=== PATIENT | male | born 1940 | race Caucasian/White ===

== ENCOUNTER 2016-07-02 17:53 | Inpatient (IN) | payer MEDICARE, BC ==
[2016-07-02] MEDS ORDERED: Famotidine 20 MG/2 ML SDV IVPUSH ONE (18:05)
[2016-07-02] MEDS: Sodium Chloride 0.9% 10 ML Syringe FLUSH PRN (18:15)
--- NOTE | 2016-07-02 18:30 | EDM.PDOC ---
ED HPI GENERAL MEDICAL PROBLEM - General Chief Complaint: Respiratory Problem Stated Complaint: Shortness of Breath Time Seen by Provider: 07/02/16 18:00 Source of Information: Reports: Patient, Family (), Old Records ([facility] chart/EMR) History Limitations: Reports: No Limitations - History of Present Illness INITIAL COMMENTS - FREE TEXT/NARRATIVE: The patient was brought to the emergency room via private automobile by his for evaluation of progressive dyspnea and mild diaphoresis with symptoms starting at about 14:00 hours this afternoon. Patient has had some significant decreased exercise tolerance, dyspnea, and intermittent diaphoresis during the last 12 months with completion of oral prednisone and Levaquin therapy about 2 weeks ago. He has been compliant with his O2 therapy, although he has had to increase this on 1 L per minute by nasal cannula to 2 L per minute by nasal cannula over the last couple of weeks. He has also been compliant with his CPAP with occasional greenish productive cough, including earlier today. No recent history of fever or known exposure to infection. The patient denies any chest pain/pressure, heart flutter, dizziness, orthostasis, orthopnea, diaphoresis, paresthesias, or any other anginal-type symptoms. No recent history of abdominal pain, heartburn, nausea, diarrhea, melena, gross hematochezia, or any food intolerance, including fatty foods, etc. with normal bowel movement earlier today, although some increased flatulence during the last couple of weeks. Onset: Gradual Onset Date: 07/02/16 Onset Time: 14:00 Duration: Getting Worse Location: Reports: Other (No pain) Quality: Reports: Same as Previous Episode Severity: Severe Improves with: Reports: Rest Worsens with: Reports: Movement Context: Reports: Other (As above) Associated Symptoms: Reports: Cough, cough w sputum, Diaphoresis, Shortness of Breath. Denies: Confusion, Chest Pain, Fever/Chills, Headaches, Nausea/Vomiting , Seizure, Syncope, Weakness Treatments HOSPITAL PHARMACY TECHNICIAN: Reports: Other (see below) (None) - Related Data Allergies Allergy/AdvReac Type Severity Reaction Status Date / Time levonorgestrel Allergy Cannot Verified 03/28/15 08:02 Remember mold Allergy Shortness Uncoded 07/22/15 17:23 of Breath pollen Allergy Cannot Uncoded 03/28/15 08:02 Remember Home Meds: Home Meds Albuterol/Ipratropium [DuoNeb 3.0-0.5 MG/3 ML] 1 ampule INH QID 03/20/14 [ History] Aspirin 325 mg PO QAM 03/20/14 [History] Atenolol [Tenormin] 50 mg PO BID 03/20/14 [History] Fluticasone Propionate [Flonase] 1 spray NASBOTH QAM PRN 03/20/14 [History] Loratadine/Pseudoephedrine [Sm Loratadine D 12 Hour Tablet] 1 tab PO QAM [History] Multivitamin [Tab A Henry] 1 tab PO DAILY@1200 03/20/14 [History] guaiFENesin/Pseudoephedrine [Mucinex D ER 600-60 MG] 1 tab PO Q12HR 03/20/14 [ History] Ibuprofen [Advil] 400 mg PO ASDIRECTED PRN 10/16/14 [History] Docusate Sodium [Colace] 100 mg PO ASDIRECTED PRN 03/27/15 [History] Albuterol [IJD: Ventolin HFA] 2 puff INH QID PRN 07/02/16 [History] Budesonide [Pulmicort] 0.5 mg NEB BIDRT 07/02/16 [History] Non-Formulary Medication [NF Drug] 2 tab PO DAILY 07/02/16 [History] Past Medical History HEENT History: Reports: Allergic Rhinitis, Cataract, Hard of Hearing, Impaired Vision, Sinusitis, Other (See Below). Denies: Glaucoma, Macular Degeneration, Retinal Detachment Other HEENT History: wears glasses allergic rhinitis with chronic sinusitis, presbycusis bilaterally with no current hearing aid therapy, nasal septum deviation, intermittent tinnitus Cardiovascular History: Reports: Hypertension, Pulmonary Hypertension, SOB on Exertion, Other (See Below). Denies: Aneurysm, Arrhythmia, Blood Clots/VTE/DVT , CAD, Heart Failure, Heart Murmur, High Cholesterol, OR, PVD, Syncope Other Cardiovascular History: Dyspnea secondary to COPD Respiratory History: Reports: Bronchitis, Recurrent, COPD, Intubation, Previous , Pulmonary Fibrosis, Sleep Apnea, Other (See Below). 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 Denies: Celiac Disease, Gastritis, GI Bleed, Hepatitis, Inflammatory Bowel Disease, Irritable Bowel Syndrome, Jaundice, Pancreatitis, PUD Other Gastrointestinal History: Small bowel obstruction on 09/16/12 after colonoscopy, small bowel ileus after appendicitis as below, tubular adenoma of the transverse colon on 09/15/12, Gilbert's syndrome, mild dysphagia Genitourinary History: Reports: BPH, Other (See Below). Denies: Acute Renal Failure, Chronic Renal Insuffiency, Renal Calculus, Retention, Urinary, Urinary Incontinence, UTI, Recurrent Other Genitourinary History: BPH with history of PSA elevation with subsequent normalization, erectile dysfunction Musculoskeletal History: Reports: Arthritis, Back Pain, Chronic, Fracture, Neck Pain, Chronic, Osteoarthritis, Osteoporosis, Other (See Below). Denies: Amputation, Gout, RA, SLE Other Musculoskeletal History: Fracture of the left clavicle in 1997, previous vertebral body compression fractures, right Colles' wrist fracture on 03/20/14 Neurological History: Reports: None. Denies: Cerebral Aneurysms, Concussion, CVA, Headaches, Chronic, Head Trauma, Migraines, MS, Parkinson's, Seizure, TIA Psychiatric History: Reports: Anxiety, Depression. Denies: Abuse, Victim of, ADD, ADHD, Addiction, Psych Hospitalization(s), PTSD, Suicide Attempt, Suicidal Ideation Endocrine/Metabolic History: Reports: Osteoporosis, Other (See Below). Denies: Diabetes, Type II, Hypothyroidism, IDDM Other Endocrine/Metabolic History: Hyponatremia Hematologic History: Reports: None. Denies: Anemia, B12 Deficiency, Blood Transfusion(s), Iron Deficiency Immunologic History: Reports: None. Denies: AIDS, HIV, SLE Oncologic (Cancer) History: Reports: None. Denies: Basal Cell Carcinoma, Colon , Hodgkin's Lymphoma, Leukemia, Lymphoma, Malignant Melanoma, Metastatic, Non- Hodgkin's Lymphoma, Prostate, Squamous Cell Carcinoma Dermatologic History: Reports: None. Denies: Eczema, Psoriasis - Infectious Disease History Infectious Disease History: Reports: Chicken Pox, Measles, Mumps, Scarlet Fever. Denies: C-Difficile, Meningitis, Mononucleosis, MRSA, Pertussis ( Whooping Cough), Rheumatic Fever, Rubella, TB, VRE - Past Surgical History Head Surgeries/Procedures: Reports: None HEENT Surgical History: Reports: Adenoidectomy, Cataract Surgery, Oral Surgery, Tonsillectomy, Other (See Below). Denies: Eye Surgery, Laser Surgery, LASIK, Myringotomy w Tube(s), Naso-Sinus Surgery Other HEENT Surgeries/Procedures: Bilateral cataract surgery initially on the left side in about 1997 and on the right side in 2004, complete upper teeth extraction with multiple lower teeth extractions, tonsillectomy and adenoidectomy at age 3 Cardiovascular Surgical History: Reports: None. Denies: Varicose, Vascular Surgery Respiratory Surgical History: Reports: None. Denies: Lung Biopsies, Thoracentesis GI Surgical History: Reports: Appendectomy, Cholecystectomy, Colonoscopy, Hernia , Inguinal, Polypectomy, Other (See Below). Denies: EGD Other GI Surgeries/Procedures: Laparoscopic cholecystectomy in about 1995, last colonoscopy on 09/15/12, appendectomy on 10/13/14, left inguinal hernia repair with mesh placement on 03/28/15 Male Surgical History: Reports: None. Denies: Circumcision, Prostate Biopsy , Suprapubic Catheter Placement, TURP-Transurethral Resection of Prostate Endocrine Surgical History: Denies: Thyroid Biopsy Neurological Surgical History: Reports: C-Spine, Laminectomy, Other (See Below) Other Neurological Surgeries/Procedures: Laminectomy of C6 in about 1994 Musculoskeletal Surgical History: Reports: Arthroscopic Procedure, Shoulder Surgery, Other (See Below). Denies: Carpal Tunnel, Ganglion Cyst, Joint Replacement, ORIF Other Musculoskeletal Surgeries/Procedures:: Bilateral arthroscopic shoulder repair with right-sided surgery 1996 and left-sided surgery in 1997, left clavicular repair in 1997 Oncologic Surgical History: Reports: None Dermatological Surgical History: Reports: None - Past Imaging History Past Imaging History: Reports: Carotid US (Left carotid artery Doppler studies on 04/26/11), CAT Scan (CT of the chest on 08/06/15, Last CT of the abdomen and pelvis with contrast on 10/26/14 with previous evaluation on 09/16/12, CT of the sinuses on 06/12/08), Sleep Study (07/08/08), Stress Testing (Persantine Cardiolite stress test on 6/20/07 with ejection fraction of 60%), Swallow Study (11/21/15) Social & Family History - Family History HEENT: Reports: None. Denies: Glaucoma, Macular Degeneration, Retinal Detachment Cardiac: Reports: Arrhythmia, CAD, Heart Failure, High Cholesterol, Hypertension , OR, Other (See Below). Denies: Afib, Aneurysm, Blood Clots/VTE/DVT, Heart Murmur, Pacemaker, PVD/COD, Syncope Other Cardiac Family History: Father with history of bradycardia and fatal OR at age 82, maternal uncles x3 with fatal MIs in their 60s, maternal aunt with history of CABG and OR. hypertension and hyperlipidemia in father Respiratory: Reports: None. Denies: Asthma, COPD, PE, Pneumothorax GI: Reports: Cholelithiasis, GI bleed, Other (See Below). Denies: Celiac Disease, Colon Polyps, GERD, Inflammatory Bowel Disease, Irritable Bowel Syndrome, PUD Other GI Family History: Mother with cholelithiasis, mother with lower GI bleed at 103 as below : Reports: None. Denies: Dialysis, Renal Calculus, Renal Disease/ Insufficiency OBGYN: Reports: Dysfunctional uterine bleeding, Fibroids, Recurrent Spontaneous . Denies: Endometriosis Other OBGYN Family History: Mother with recurrent SABs, daughter with history of uterine fibroids with subsequent breast cancer Musculoskeletal: Reports: None. Denies: Gout, RA, SLE Neurological: Reports: Alzheimers Disease, CVA, Dementia, Other (See Below). Denies: Cerebral Aneurysms, Migraines, MS, Parkinson's, Seizure, TIA Other Neurological Family History: Father with CVA at age 59, mother with fatal CVA at age 105 with history of Alzheimer's disease Psychiatric: Reports: None. Denies: Abuse, Victim of, ADD, ADHD, Anxiety, Depression, Psych Hospitalization(s), PTSD, Suicide Attempt Endocrine/Metabolic: Reports: Hypothyroidism, Other (See Below). Denies: Diabetes, Type I, Diabetes, type II Other Endocrine/Metabolic Family History: mother with hypothyroidism Hematologic: Reports: Anemia, Other (See Below). Denies: SLE Other Hematologic Family History: Lower GI bleed with anemia and required blood transfusion in mother at 103 with no workup Immunologic: Reports: None. Denies: AIDS, Immunosuppression Dermatologic: Reports: None. Denies: Eczema, Psoriasis Oncologic: Reports: Breast, Other (See Below) Other Oncologic Family History: Daughter with fatal breast cancer at age 37, paternal grandmother with fatal breast cancer at age 67 but she also suffered from cervical cancer, daughter with breast cancer at age 41, brother with fatal unknown type of metastatic cancer at age 57 - Tobacco Use Smoking Status *Q: Former Smoker Years of Tobacco use: 40 Packs/Tins Daily: 2.5 (Maximum use of 3 packs per day, additional pipe and cigar use) Used Tobacco, but Quit: Yes Month Tobacco Last Used: 10/09/1994 Second Hand Smoke Exposure: No Second Hand Smoke Education Provided: No - Caffeine Use Caffeine Use: Reports: Coffee (1.5 cups per day), Tea (One glass per week). 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 Denies: Fever, Chills, Malaise, Weakness, Night Sweats, Decreased Appetite, Weight Loss, Weight Gain HEENT: Reports: Glasses, Hearing Loss (Chronic). Denies: Contact Lenses, Dental Pain, Ear Pain, Eye Pain, Rhinitis, Sinus Problem, Throat Pain, Throat Swelling, Vertigo, Vision Change Respiratory: Reports: Shortness of Breath, Wheezing, Cough, Sputum. Denies: Pleuritic Chest Pain, Hemoptysis Cardiovascular: Reports: Dyspnea on Exertion. Denies: Chest Pain, Blood Pressure Problem, Claudication, Edema, Lightheadedness, Orthopnea, Palpitations , PND, Syncope Endocrine: Reports: Fatigue GI/Abdominal: Reports: Flatus. Denies: Abdominal Pain, Anorexia, Black Stool, Bloody Stool, Constipation, Diarrhea, Decreased Appetite, Difficulty Swallowing , Distension, Hematemesis, Hematochezia, Melena, Nausea, Stool Incontinence, Vomiting : Reports: No Symptoms. Denies: Discharge, Dysuria, Flank Pain, Frequency, Hematuria, Incontinence, Pain, Urgency, Urinary Retention Musculoskeletal: Reports: No Symptoms. Denies: Neck Pain, Shoulder Pain, Arm Pain, Back Pain, Leg Pain Skin: Denies: Diaphoresis, Bruising, Wound Neurological: Reports: No Symptoms. Denies: Confusion, Dizziness, Headache, Numbness, Paresthesia, Syncope, Tingling, Difficulty Walking, Weakness, Change in Speech Psychiatric: Reports: Anxiety, Depression, Other (Worsening anxiety and depression during the last couple months secondary to worsening of his baseline COPD). Denies: Agitation, Confusion, Hallucinations, Homicidal Ideation, Mood Lability Hematologic/Lymphatic: Reports: No Symptoms Immunologic: Reports: No Symptoms ED EXAM, GENERAL - Physical Exam Exam: See Below Exam Limited By: No Limitations General Appearance: Alert, WD/WN, No Apparent Distress, Anxious (Mild) Eye Exam: Bilateral Eye: EOMI, Normal Inspection (No nystagmus), PERRL Ears: Normal External Exam, Normal Canal, Normal TMs, Hearing Loss (Bilateral presbycusis-mild) Nose: Normal Inspection, Normal Mucosa, No Blood Throat/Mouth: Normal Inspection, Normal Lips, Normal Gums, Normal Oropharynx, Normal Voice, No Airway Compromise. No: Normal Teeth (Complete upper dentures and partial lowers), Dysphagia, Perioral Cyanosis Head: Atraumatic, Normocephalic. No: Facial Swelling, Facial Tenderness, Sinus Tenderness Neck: Supple, Non-Tender, Full Range of Motion, Carotid Bruit (Bilateral carotid bruits-mild). No: Lymphadenopathy (L), Lymphadenopathy (R), Thyromegaly Respiratory/Chest: No Respiratory Distress, No Accessory Muscle Use, Chest Non- Tender, Rales (Mild bilateral mostly basilar rales), Rhonchi (Occasional), Wheezing (Occasional). No: Retractions Cardiovascular: Normal Peripheral Pulses, Regular Rate, Rhythm, No Edema, No Gallop, No JVD, No Murmur, No Rub. No: Gallop/S3, Gallop/S4, Friction Rub Peripheral Pulses: 2+: Radial (L), Radial (R), Dorsalis Pedis (L), Dorsalis Pedis (R) GI/Abdominal: Normal Bowel Sounds, Soft, Non-Tender, No Organomegaly, No Distention, No Abnormal Bruit, No Mass, Pelvis Stable. No: Guarding (Male) Exam: Deferred Rectal (Males) Exam: Deferred Back Exam: Normal Inspection, Full Range of Motion. No: CVA Tenderness (L), CVA Tenderness (R), Muscle Spasm Extremities: Normal Inspection, Normal Range of Motion, Non-Tender, No Pedal Edema, Normal Capillary Refill. No: Kal's Sign Neurological: Alert, Oriented, CN II-XII Intact, Normal Cognition, Normal Gait, Normal Reflexes (Negative Babinski's), No Motor/Sensory Deficits Psychiatric: Anxious (Mild), Depressed Mood (Mild with adequate eye contact) Skin Exam: Warm, Dry, Intact, Normal Color, No Rash. No: Diaphoretic, Wound/ Incision Lymphatic: No Adenopathy EKG INTERPRETATION EKG Date: 07/02/16 Time: 18:12 Rhythm: NSR Rate (beats/min): 89 [place]: LAD-left axis deviation (Extended left cardiac axis) P-wave: enlarged (Moderate Diffuse biphasic P waves with poor R-wave progression in the anterior leads) QRS: normal (Coarse interval 0.09 seconds representing repolarization changes with T-wave inversion in lead V1) ST-T: normal QT: normal RI/PQ Interval: 0.20 seconds representing a borderline first degree AV block Comparison: change from previous EKG (Changed from previous neutral cardiac axis on 06/15/08) EKG Interpretation Comments: 1. No acute ischemic changes 2. Probable left atrial enlargement 3. Borderline First degree AV block Course - Vital Signs Last Recorded V/S: Last Vital Signs Temp 36.6 C 07/02/16 19:30 Pulse 86 07/02/16 19:50 Resp 15 07/02/16 19:50 BP 157/96 H 07/02/16 19:50 Pulse Ox 98 07/02/16 19:50 Vital Signs - 24 hr 07/02/16 07/02/16 07/02/16 17:55 18:15 18:20 Temperature [ 36.6 C Oral] Pulse, 92 88 Peripheral [ Pulse Oximetry] Respiratory 20 20 16 Rate Blood Pressure 162/82 H 164/84 H 161/90 H [Right Upper Arm] O2 Sat by Pulse 95 99 99 Oximetry 05/07/02/16 07/02/16 18:35 18:50 19:30 Temperature [ 36.6 C Oral] Pulse, 88 87 Peripheral [ Pulse Oximetry] Respiratory 18 20 18 Rate Blood Pressure 159/94 H 147/86 H 168/90 H [Right Upper Arm] O2 Sat by Pulse 99 99 100 Oximetry 07/02/16 19:50 Temperature [ Oral] Pulse, 86 Peripheral [ Pulse Oximetry] Respiratory 15 Rate Blood Pressure 157/96 H [Right Upper Arm] O2 Sat by Pulse 98 Oximetry - Orders/Labs/Meds Orders: Active Orders 24 hr Category Date Time Status Cardiac Monitoring [RC] . DIRECTED Care 07/02/16 18:05 Active EKG Documentation Completion [RC] ASDIRECTED Care 07/02/16 18:05 Active Oxygen Therapy, ED [RC] CONTINUOUS Care 07/02/16 18:05 Active Peripheral IV Care [RC] . DIRECTED Care 07/02/16 18:05 Active Pulse Oximetry [RC] CONTINUOUS Care 07/02/16 18:05 Active Up With Assistance [RC] PFP Care 07/02/16 18:05 Active Vital Signs [RC] PFP Care 07/02/16 18:05 Active Nothing per Oral Now Diet [DIET] Diet 07/02/16 Breakfast Active Chest 1V Frontal [CR] Stat Exams 07/02/16 18:05 Taken Chest PE [Ang Chest] [CT] Stat Exams 07/02/16 18:48 Taken CULTURE BLOOD [BC] Stat Lab 07/02/16 18:00 Received CULTURE BLOOD [BC] Stat Lab 07/02/16 18:00 Received Sodium Chloride 0.9% [Saline Flush] Med 07/02/16 18:05 Active 10 ml FLUSH ASDIRECTED PRN Blood Culture x2 Reflex Set [OM.PC] Urgent Oth 07/02/16 18:07 Ordered Obtain Past Medical Record [OM.PC] Urgent Oth 07/02/16 18:05 Active Peripheral IV Insertion Adult [OM.PC] Stat Oth 07/02/16 18:05 Ordered Resuscitation Status Stat Resus Stat 07/02/16 18:05 Ordered Medication Orders Sodium Chloride (Saline Flush) 10 ml FLUSH ASDIRECTED PRN PRN Reason: Keep Vein Open Last Admin: 07/02/16 18:15 Dose: 10 ml Labs: Laboratory Tests 05/07/02/16 07/02/16 Range/Units 18:00 18:00 18:00 WBC 6.7 (4.0-10.2) K/uL RBC 4.88 (4.33-5.41) M/uL Hgb 14.8 D (13.1-16.8) g/dL Hct 42.6 (39.0-49.0) % MCV 87.3 (84.0-98.0) fL MCH 30.3 (28.2-33.3) pg MCHC 34.7 (31.7-36.0) g/dL RDW 12.8 (11.2-14.1) % Plt Count 223 (150-350) K/uL Neut % (Auto) 77.4 (45.0-80.0) % Lymph % (Auto) 10.8 (10.0-50.0) % Norman % (Auto) 9.1 (2.0-14.0) % Eos % (Auto) 2.4 (0.0-5.0) % Baso % (Auto) 0.3 (0.0-2.0) % Neut # (Auto) 5.22 (1.40-7.00) K/uL Lymph # (Auto) 0.73 (0.50-3.50) K/uL Norman # (Auto) 0.61 (0.00-1.00) K/uL Eos # (Auto) 0.16 (0.00-0.50) K/uL Baso # (Auto) 0.02 (0.00-0.20) K/uL PT 10.5 (9.8-11.7) SEC INR 1.0 APTT 26.5 (23.5-30.0) SEC D-Dimer, Quantitative < 100 (0-400) ng/mL Sodium (136-145) mmol/L Potassium (3.5-5.1) mmol/L Chloride (98-107) mmol/L Carbon Dioxide (21.0-32.0) mmol/L BUN (7-18) mg/dL Creatinine (0.51-1.17) mg/dL Est Cr Clr Drug Dosing Estimated GFR (MDRD) mL/min Glucose (74-106) mg/dL Lactic Acid (0.4-2.0) mmol/L Uric Acid (2.6-7.2) mg/dL Calcium (8.5-10.1) mg/dL Magnesium (1.8-2.4) mg/dL Total Bilirubin (0.2-1.0) mg/dL AST (15-37) U/L ALT (12-78) U/L Alkaline Phosphatase (46-116) IU/L Creatine Kinase (26-308) U/L Creatine Kinase Index (0.0-2.5) % CK-MB (CK-2) (0.00-3.60) ng/mL Troponin I (0.000-0.056) ng/mL Mvy-D-Goofhnfkrje Pept (0-125) pg/mL Total Protein (6.4-8.2) g/dL Albumin (3.4-5.0) g/dL TSH, Ultra Sensitive (0.358-3.740) mIU/mL 07/02/16 07/02/16 Range/Units 18:00 18:00 WBC (4.0-10.2) K/uL RBC (4.33-5.41) M/uL Hgb (13.1-16.8) g/dL Hct (39.0-49.0) % MCV (84.0-98.0) fL MCH (28.2-33.3) pg MCHC (31.7-36.0) g/dL RDW (11.2-14.1) % Plt Count (150-350) K/uL Neut % (Auto) (45.0-80.0) % Lymph % (Auto) (10.0-50.0) % Norman % (Auto) (2.0-14.0) % Eos % (Auto) (0.0-5.0) % Baso % (Auto) (0.0-2.0) % Neut # (Auto) (1.40-7.00) K/uL Lymph # (Auto) (0.50-3.50) K/uL Norman # (Auto) (0.00-1.00) K/uL Eos # (Auto) (0.00-0.50) K/uL Baso # (Auto) (0.00-0.20) K/uL PT (9.8-11.7) SEC INR APTT (23.5-30.0) SEC D-Dimer, Quantitative (0-400) ng/mL Sodium 130 L (136-145) mmol/L Potassium 4.3 (3.5-5.1) mmol/L Chloride 95 L (98-107) mmol/L Carbon Dioxide 27.5 (21.0-32.0) mmol/L BUN 11 (7-18) mg/dL Creatinine 0.88 (0.51-1.17) mg/dL Est Cr Clr Drug Dosing TNP Estimated GFR (MDRD) > 60 mL/min Glucose 115 H (74-106) mg/dL Lactic Acid 0.8 (0.4-2.0) mmol/L Uric Acid 4.2 (2.6-7.2) mg/dL Calcium 8.4 L (8.5-10.1) mg/dL Magnesium 1.8 (1.8-2.4) mg/dL Total Bilirubin 1.0 (0.2-1.0) mg/dL AST 21 (15-37) U/L ALT 29 (12-78) U/L Alkaline Phosphatase 85 (46-116) IU/L Creatine Kinase 101 (26-308) U/L Creatine Kinase Index 3.6 H (0.0-2.5) % CK-MB (CK-2) 3.60 (0.00-3.60) ng/mL Troponin I 0.005 (0.000-0.056) ng/mL Mus-F-Ecnizgijlbu Pept 203 H (0-125) pg/mL Total Protein 6.9 (6.4-8.2) g/dL Albumin 3.8 (3.4-5.0) g/dL TSH, Ultra Sensitive 3.101 (0.358-3.740) mIU/mL Meds: Medications Generic Name Dose Route Start Last Admin Trade Name Freq PRN Reason Stop Dose Admin Sodium Chloride 10 ml 07/02/16 18:07/02/16 18:15 Saline Flush FLUSH 10 ml ASDIRECTED PRN Administration Keep Vein Open Discontinued Medications Generic Name Dose Route Start Last Admin Trade Name Freq PRN Reason Stop Dose Admin Famotidine 40 mg 07/02/16 18:05 07/02/16 18:13 Pepcid IVPUSH 07/02/16 18:06 40 mg ONETIME ONE Administration Iopamidol 100 ml 07/02/16 18:53 07/02/16 20:11 Isovue-370 (76%) IVPUSH 07/02/16 18:54 100 ml ONETIME ONE Administration Iopamidol Confirm 07/02/16 18:54 Isovue-370 (76%) Administered 07/02/16 18:55 Dose 100 ml .ROUTE .WorldRemit ONE - Radiology Interpretation Free Text/Narrative:: esl tutor shows normal sinus rhythm with no evidence of cardiac arrhythmia with average heart rate in the 80s to 90s Chest x-ray, portable, shows evidence of severe COPD and pulmonary fibrotic changes with somewhat prominent aortic arch and evidence of mild centralized CHF and pulmonary hypertension. Mild Left lower pleural effusion versus atelectasis versus previous pulmonary nodule. No pneumothorax noted Telephone consultation with the radiology department at [facility] at 20:28 hours with verbal report of CTA of the chest with PE protocol. No evidence of PE with stable bilateral pulmonary nodules and mediastinal lymphadenopathy CT Results Date: 07/02/16 CT Results Time: 20:28 Departure - Departure Time of Disposition: 20:40 Disposition: Admitted As Inpatient 65 Condition: fair Clinical Impression: COPD, Severe chronic obstructive pulmonary disease, HTN, Benign hypertension, Osteoarthritis, Peptic reflux disease, First degree AV block, Mixed anxiety depressive disorder, Pulmonary nodule, Hyponatremia Dyspnea Qualifiers: Dyspnea type: dyspnea on exertion Qualified Code(s): R06.09 - Other forms of dyspnea CHF (congestive heart failure) Qualifiers: Congestive heart failure type: unspecified congestive heart failure type Congestive heart failure chronicity: acute Qualified Code(s): I50.9 - Heart failure, unspecified - Discharge Information - Problem List & Annotations (1) Dyspnea SNOMED Code(s): 095607067 Code(s): R06.00 - DYSPNEA, UNSPECIFIED Status: Acute Priority: High Current Visit: Yes Onset Date: 07/02/16 Annotation/Comment:: Significant progressive dyspnea since earlier today with probable concomitant pulmonary and cardiac components. Only mild CHF by blood work and chest x-ray, however note significant decreased exercise tolerance during the last couple of months. Chest pain protocol was not initiated in the emergency room secondary to absence of anginal-type symptoms. Initiate standard rule out OR orders. Cardiology consultation when necessary. Mckenzie carey physician assumes care in the a.m.. Consider echocardiogram on an outpatient basis at discharge with additional consideration of dobutamine Cardiolite stress test in this facility with me next week, if hospital transfer is not required. Note history of pulmonary hypertension Qualifiers: Dyspnea type: dyspnea on exertion Qualified Code(s): R06.09 - Other forms of dyspnea (2) CHF (congestive heart failure) SNOMED Code(s): 47906128 Code(s): I50.9 - HEART FAILURE, UNSPECIFIED Status: Acute Priority: High Current Visit: Yes Onset Date: ~07/02/16 Annotation/Comment:: Mild CHF as above. Initiate IV Lasix on admission. Note likely secondary to hyponatremia Qualifiers: Congestive heart failure type: unspecified congestive heart failure type Congestive heart failure chronicity: acute Qualified Code(s): I50.9 - Heart failure, unspecified (3) COPD, Severe chronic obstructive pulmonary disease SNOMED Code(s): 504470409 Code(s): J44.9 - CHRONIC OBSTRUCTIVE PULMONARY DISEASE, UNSPECIFIED Status : Acute Priority: Medium Current Visit: Yes Annotation/Comment:: Severe disease requiring chronic oxygen and steroid inhaler supplementation with secondary limited exercise tolerance, history of pulmonary hypertension, etc. and recent progressive dyspnea as above. No current significant bronchitic-type symptoms, fever, or known exposure to infection. Continue aggressive nebulizer therapy. Pulmonary consultation depending on his clinical course (4) First degree AV block SNOMED Code(s): 354790115 Code(s): I44.0 - ATRIOVENTRICULAR BLOCK, FIRST DEGREE Status: Acute Priority: Medium Current Visit: Yes Onset Date: ~07/02/16 Annotation/ Comment:: Newly diagnosed borderline first degree AV block with cardiac workup as above (5) HTN, Benign hypertension SNOMED Code(s): 88607061 Code(s): I10 - ESSENTIAL (PRIMARY) HYPERTENSION Status: Acute Priority: Medium Current Visit: Yes Annotation/Comment:: Recently under good control by patient history, although somewhat elevated on arrival. Blood pressures improved at admission (6) Mixed anxiety depressive disorder SNOMED Code(s): 769471076 Code(s): F41.8 - OTHER SPECIFIED ANXIETY DISORDERS Status: Chronic Priority: Medium Current Visit: Yes Annotation/Comment:: Somewhat progressive during the last couple of months secondary to his chronic illnesses as above. Continue close followup by his regular provider (7) Osteoarthritis SNOMED Code(s): 476254804 Code(s): M19.90 - UNSPECIFIED OSTEOARTHRITIS, UNSPECIFIED SITE Status: Chronic Priority: Medium Current Visit: Yes Annotation/Comment:: Currently under good control with low-dose ibuprofen (8) Peptic reflux disease SNOMED Code(s): 28151920 Code(s): K21.9 - GASTRO-ESOPHAGEAL REFLUX DISEASE WITHOUT ESOPHAGITIS Status: Chronic Priority: Medium Current Visit: Yes Annotation/Comment:: Stable by patient history with IV Pepcid given on arrival (9) Pulmonary nodule SNOMED Code(s): 436619521 Code(s): R91.1 - SOLITARY PULMONARY NODULE Status: Chronic Priority: Medium Current Visit: Yes Annotation/Comment:: CTA of the chest conducted today with results as above. Note previously diagnosed bilateral pulmonary nodules with mediastinal adenopathy on 08/06/15. Lung biopsies, oncology consultation, etc. depending on his clinical course, however not warranted at this time. (10) Hyponatremia SNOMED Code(s): 25706781 Code(s): E87.1 - HYPO-OSMOLALITY AND HYPONATREMIA Status: Chronic Priority: Medium Current Visit: Yes Annotation/Comment:: As above - Problem List Review Problem List Initiated/Reviewed/Updated: Yes - My Orders Last 24 Hours: My Active Orders 07/02/16 18:00 CULTURE BLOOD [BC] Stat CULTURE BLOOD [BC] Stat 07/02/16 18:05 Cardiac Monitoring [RC] . DIRECTED EKG Documentation Completion [RC] ASDIRECTED Oxygen Therapy, ED [RC] CONTINUOUS Peripheral IV Care [RC] . DIRECTED Pulse Oximetry [RC] CONTINUOUS Up With Assistance [RC] PFP Vital Signs [RC] PFP Chest 1V Frontal [CR] Stat Sodium Chloride 0.9% [Saline Flush] 10 ml FLUSH ASDIRECTED PRN Obtain Past Medical Record [OM.PC] Urgent Peripheral IV Insertion Adult [OM.PC] Stat Resuscitation Status Stat 07/02/16 18:07 Blood Culture x2 Reflex Set [OM.PC] Urgent 07/02/16 18:48 Chest PE [Ang Chest] [CT] Stat 07/02/16 Breakfast Nothing per Oral Now Diet [DIET] - Assessment/Plan Admission H&P: Please use this note as an admission H&P Last 24 Hours: My Active Orders 07/02/16 18:00 CULTURE BLOOD [BC] Stat CULTURE BLOOD [BC] Stat 07/02/16 18:05 Cardiac Monitoring [RC] . DIRECTED EKG Documentation Completion [RC] ASDIRECTED Oxygen Therapy, ED [RC] CONTINUOUS Peripheral IV Care [RC] . DIRECTED Pulse Oximetry [RC] CONTINUOUS Up With Assistance [RC] PFP Vital Signs [RC] PFP Chest 1V Frontal [CR] Stat Sodium Chloride 0.9% [Saline Flush] 10 ml FLUSH ASDIRECTED PRN Obtain Past Medical Record [OM.PC] Urgent Peripheral IV Insertion Adult [OM.PC] Stat Resuscitation Status Stat 07/02/16 18:07 Blood Culture x2 Reflex Set [OM.PC] Urgent 07/02/16 18:48 Chest PE [Ang Chest] [CT] Stat 07/02/16 Breakfast Nothing per Oral Now Diet [DIET] Assessment:: As above Plan: As above. Extensive precautions were given to the patient and his , who are in agreement with the treatment plan. The patient will require about 3-4 days of inpatient/acute care secondary to multiple health problems as above.
[2016-07-02 18:37] LABS: CHLORIDE,CL 95 mmol/L (98-107); SODIUM,NA 130 mmol/L (136-145)
[2016-07-02] MEDS ORDERED: Iopamidol 755 Mg/ML 100 ML Bottle IVPUSH ONE (18:53)
[2016-07-02] MEDS ORDERED: Iopamidol 755 Mg/ML 100 ML Bottle ONE (18:54)
[2016-07-02] MEDS ORDERED: Docusate Sodium 100 MG Cap PO PRN ×2 (20:49→22:27)
[2016-07-02] MEDS ORDERED: Sodium Chloride 0.9% 10 ML Syringe FLUSH PRN (20:51)
[2016-07-02] MEDS ORDERED: Temazepam 15 MG Cap PO PRN (20:51)
[2016-07-02] MEDS ORDERED: Albuterol 0.083% 2.5 MG/3 ML Neb Soln INH PRN (20:57)
[2016-07-02] MEDS ORDERED: Albuterol/Ipratropium 3.0-0.5 MG/3 ML Neb Soln NEB PRN (20:57)
[2016-07-02] MEDS: Albuterol/Ipratropium 3.0-0.5 MG/3 ML Neb Soln NEB SCH (21:28)
[2016-07-02] MEDS: Budesonide 0.5 MG/2 ML Neb Susp NEB SCH (21:28)
[2016-07-02] MEDS: Furosemide 40 MG/4 ML VIAL IVPUSH SCH (21:28)
[2016-07-03] MEDS: Albuterol/Ipratropium 3.0-0.5 MG/3 ML Neb Soln NEB SCH ×4 (02:57→19:52)
[2016-07-03] MEDS ORDERED: Menthol/Methyl Salicylate 85 GM Tube TOP PRN ×2 (03:02→05:51)
[2016-07-03] MEDS: Acetaminophen 325 MG Tab PO PRN ×3 (03:07→23:15)
[2016-07-03] MEDS: Lisinopril 10 MG Tab PO SCH (07:17)
[2016-07-03] MEDS: Dextromethorphan/guaiFENesin 600-30 MG Tab.ER PO SCH ×2 (07:18→17:30)
[2016-07-03] MEDS: Aspirin 325 MG Tab PO SCH (07:18)
[2016-07-03] MEDS: Budesonide 0.5 MG/2 ML Neb Susp NEB SCH ×2 (07:19→19:52)
[2016-07-03] MEDS: Atenolol 50 MG Tab PO SCH ×2 (07:19→17:29)
[2016-07-03] MEDS: Potassium Chloride 20 MEQ Tab.ER PO SCH ×2 (07:19→17:30)
[2016-07-03] MEDS: Furosemide 40 MG/4 ML VIAL IVPUSH SCH ×2 (07:20→17:30)
[2016-07-03 07:44] LABS: CHLORIDE,CL 97 mmol/L (98-107); SODIUM,NA 134 mmol/L (136-145)
[2016-07-03] MEDS ORDERED: LORATADINE PO SCH (08:00)
[2016-07-03] MEDS ORDERED: PSEUDOEPHEDRINE PO SCH (08:00)
--- NOTE | 2016-07-03 09:04 | PCM.PN ---
- General Info Date of Service: 07/03/16 Admission Dx/Problem (Free Text): Short of breath danette with exertion - Patient Data Vitals - most recent: Last Vital Signs Temp 36.8 C 07/03/16 08:00 Pulse 81 07/03/16 08:00 Resp 20 07/03/16 08:00 BP 127/83 07/03/16 08:00 Pulse Ox 97 07/03/16 08:00 Weight - most recent: 146 kg I&O - last 24 hours: Intake & Output 07/02/16 07/03/16 07/03/16 18:59 02:59 10:59 Intake Total 120 Output Total 450 Balance -330 Lab Results last 24 hrs: Laboratory Results - last 24 hr 07/03/16 07/03/16 07/03/16 Range/Units 07:00 07:00 07:00 WBC 6.6 (4.0-10.2) K/uL RBC 5.00 (4.33-5.41) M/uL Hgb 15.2 (13.1-16.8) g/dL Hct 43.6 (39.0-49.0) % MCV 87.2 (84.0-98.0) fL MCH 30.4 (28.2-33.3) pg MCHC 34.9 (31.7-36.0) g/dL RDW 13.0 (11.2-14.1) % Plt Count 232 (150-350) K/uL Neut % (Auto) 68.2 (45.0-80.0) % Lymph % (Auto) 15.3 (10.0-50.0) % [place] % (Auto) 12.7 (2.0-14.0) % Eos % (Auto) 3.5 (0.0-5.0) % Baso % (Auto) 0.3 (0.0-2.0) % Neut # (Auto) 4.50 (1.40-7.00) K/uL Lymph # (Auto) 1.01 (0.50-3.50) K/uL [place] # (Auto) 0.84 (0.00-1.00) K/uL Eos # (Auto) 0.23 (0.00-0.50) K/uL Baso # (Auto) 0.02 (0.00-0.20) K/uL Sodium 134 L (136-145) mmol/L Potassium 3.6 (3.5-5.1) mmol/L Chloride 97 L (98-107) mmol/L Carbon Dioxide 29.2 (21.0-32.0) mmol/L BUN 11 (7-18) mg/dL Creatinine 1.01 (0.51-1.17) mg/dL Est Cr Clr Drug Dosing 60.56 mL/min Estimated GFR (MDRD) > 60 mL/min Glucose 102 (74-106) mg/dL Hemoglobin A1c 5.5 (4.3-5.7) % Calcium 8.9 (8.5-10.1) mg/dL Total Bilirubin 1.2 H (0.2-1.0) mg/dL AST 21 (15-37) U/L ALT 29 (12-78) U/L Alkaline Phosphatase 77 (46-116) IU/L Creatine Kinase 95 (26-308) U/L Creatine Kinase Index 3.6 H (0.0-2.5) % CK-MB (CK-2) 3.40 (0.00-3.60) ng/mL Troponin I 0.011 (0.000-0.056) ng/mL [id number]-[id number] Pept 307 H (0-125) pg/mL Total Protein 6.9 (6.4-8.2) g/dL Albumin 3.8 (3.4-5.0) g/dL Triglycerides 112 (30-150) mg/dL Cholesterol 129 (100-200) mg/dL LDL Cholesterol, Calc 46 (0-100) mg/dL HDL Cholesterol 61 H (40-60) mg/dL Med Orders - Current: Current Medications Acetaminophen (Tylenol) 650 mg PO Q4H PRN PRN Reason: Fever Last Admin: 07/03/16 03:07 Dose: 650 mg Albuterol (Proventil Neb Soln) 2.5 mg INH Q2H PRN PRN Reason: SHORTNESS OF BREATH Albuterol/Ipratropium (Duoneb 3.0-0.5 Mg/3 Ml) 3 ml NEB Q4HRRT PRN PRN Reason: Dyspnea Albuterol/Ipratropium (Duoneb 3.0-0.5 Mg/3 Ml) 3 ml NEB Q6HRRT [facility] Last Admin: 07/03/16 07:19 Dose: 3 ml Aspirin (Aspirin) 325 mg PO QAM [facility] Last Admin: 07/03/16 07:18 Dose: 325 mg Atenolol (Tenormin) 50 mg PO BID [facility] Last Admin: 07/03/16 07:19 Dose: 50 mg Budesonide (Pulmicort) 0.5 mg NEB BIDRT [facility] Last Admin: 07/03/16 07:19 Dose: 0.5 mg Docusate Sodium (Colace) 100 mg PO DAILY PRN PRN Reason: Constipation Furosemide (Lasix) 40 mg IVPUSH BID [facility] Last Admin: 07/03/16 07:20 Dose: 40 mg Guaifenesin/Dextromethorphan (Mucinex Dm Er 600-30 Mg) 1 tab PO BID [facility] Last Admin: 07/03/16 07:18 Dose: 1 tab Lisinopril (Prinivil) 10 mg PO DAILY [facility] Last Admin: 07/03/16 07:17 Dose: 10 mg Methyl Salicylate (Icy Hot Cream) 0 gm TOP BID PRN PRN Reason: Pain Non-Formulary Medication ([facility]oratadine/[facility]hed[facility]) [facility] Potassium Chloride (Klor-Con M20) 20 meq PO BID [facility] Last Admin: 07/03/16 07:19 Dose: 20 meq Sodium Chloride (Saline Flush) 10 ml FLUSH ASDIRECTED PRN PRN Reason: Keep Vein Open Last Admin: 07/02/16 18:15 Dose: 10 ml Sodium Chloride (Saline Flush) 10 ml FLUSH Q12HR PRN PRN Reason: Keep Vein Open Temazepam (Restoril) 15 mg PO BEDTIME PRN PRN Reason: Insomnia Discontinued Medications Docusate Sodium (Colace) 100 mg PO ASDIRECTED PRN PRN Reason: Constipation Famotidine (Pepcid) 40 mg IVPUSH ONETIME ONE Stop: 07/02/16 18:06 Last Admin: 07/02/16 18:13 Dose: 40 mg Iopamidol (Isovue-370 (76%)) 100 ml IVPUSH ONETIME ONE Stop: 07/02/16 18:54 Last Admin: 07/02/16 20:11 Dose: 100 ml Iopamidol (Isovue-370 (76%)) Confirm Administered Dose 100 ml .ROUTE .STK-MED ONE Stop: 07/02/16 18:55 Last Admin: 07/03/16 07:31 Dose: Not Given Methyl Salicylate (Icy Hot Cream) 1 gm TOP ASDIRECTED PRN PRN Reason: Pain
--- NOTE | 2016-07-03 09:09 | PCM.PN ---
- General Info Date of Service: 07/03/16 Admission Dx/Problem (Free Text): Short of breath danette with exertion Subjective Update: Feels better but still SOB with exertion Functional Status: Reports: ambulating - Review of Systems General: Reports: Fatigue HEENT: Reports: no symptoms Pulmonary: Reports: shortness of breath, cough Cardiovascular: Reports: No Symptoms Gastrointestinal: Reports: No symptoms Genitourinary: Reports: no symptoms Musculoskeletal: Reports: no symptoms - Patient Data Vitals - most recent: Last Vital Signs Temp 36.8 C 07/03/16 08:00 Pulse 81 07/03/16 08:00 Resp 20 07/03/16 08:00 BP 127/83 07/03/16 08:00 Pulse Ox 97 07/03/16 08:00 Weight - most recent: 146 kg I&O - last 24 hours: Intake & Output 07/02/16 07/03/16 07/03/16 18:59 02:59 10:59 Intake Total 120 Output Total 450 Balance -330 Lab Results last 24 hrs: Laboratory Results - last 24 hr 07/03/16 07/03/16 07/03/16 Range/Units 07:00 07:00 07:00 WBC 6.6 (4.0-10.2) K/uL RBC 5.00 (4.33-5.41) M/uL Hgb 15.2 (13.1-16.8) g/dL Hct 43.6 (39.0-49.0) % MCV 87.2 (84.0-98.0) fL MCH 30.4 (28.2-33.3) pg MCHC 34.9 (31.7-36.0) g/dL RDW 13.0 (11.2-14.1) % Plt Count 232 (150-350) K/uL Neut % (Auto) 68.2 (45.0-80.0) % Lymph % (Auto) 15.3 (10.0-50.0) % [place] % (Auto) 12.7 (2.0-14.0) % Eos % (Auto) 3.5 (0.0-5.0) % Baso % (Auto) 0.3 (0.0-2.0) % Neut # (Auto) 4.50 (1.40-7.00) K/uL Lymph # (Auto) 1.01 (0.50-3.50) K/uL [place] # (Auto) 0.84 (0.00-1.00) K/uL Eos # (Auto) 0.23 (0.00-0.50) K/uL Baso # (Auto) 0.02 (0.00-0.20) K/uL Sodium 134 L (136-145) mmol/L Potassium 3.6 (3.5-5.1) mmol/L Chloride 97 L (98-107) mmol/L Carbon Dioxide 29.2 (21.0-32.0) mmol/L BUN 11 (7-18) mg/dL Creatinine 1.01 (0.51-1.17) mg/dL Est Cr Clr Drug Dosing 60.56 mL/min Estimated GFR (MDRD) > 60 mL/min Glucose 102 (74-106) mg/dL Hemoglobin A1c 5.5 (4.3-5.7) % Calcium 8.9 (8.5-10.1) mg/dL Total Bilirubin 1.2 H (0.2-1.0) mg/dL AST 21 (15-37) U/L ALT 29 (12-78) U/L Alkaline Phosphatase 77 (46-116) IU/L Creatine Kinase 95 (26-308) U/L Creatine Kinase Index 3.6 H (0.0-2.5) % CK-MB (CK-2) 3.40 (0.00-3.60) ng/mL Troponin I 0.011 (0.000-0.056) ng/mL Agt-K-Cjfoakmfzgl Pept 307 H (0-125) pg/mL Total Protein 6.9 (6.4-8.2) g/dL Albumin 3.8 (3.4-5.0) g/dL Triglycerides 112 (30-150) mg/dL Cholesterol 129 (100-200) mg/dL LDL Cholesterol, Calc 46 (0-100) mg/dL HDL Cholesterol 61 H (40-60) mg/dL Med Orders - Current: Current Medications Acetaminophen (Tylenol) 650 mg PO Q4H PRN PRN Reason: Fever Last Admin: 07/03/16 03:07 Dose: 650 mg Albuterol (Proventil Neb Soln) 2.5 mg INH Q2H PRN PRN Reason: SHORTNESS OF BREATH Albuterol/Ipratropium (Duoneb 3.0-0.5 Mg/3 Ml) 3 ml NEB Q4HRRT PRN PRN Reason: Dyspnea Albuterol/Ipratropium (Duoneb 3.0-0.5 Mg/3 Ml) 3 ml NEB Q6HRRT [facility] Last Admin: 07/03/16 07:19 Dose: 3 ml Aspirin (Aspirin) 325 mg PO QAM [facility] Last Admin: 07/03/16 07:18 Dose: 325 mg Atenolol (Tenormin) 50 mg PO BID [facility] Last Admin: 07/03/16 07:19 Dose: 50 mg Budesonide (Pulmicort) 0.5 mg NEB BIDRT [facility] Last Admin: 07/03/16 07:19 Dose: 0.5 mg Docusate Sodium (Colace) 100 mg PO DAILY PRN PRN Reason: Constipation Furosemide (Lasix) 40 mg IVPUSH BID [facility] Last Admin: 07/03/16 07:20 Dose: 40 mg Guaifenesin/Dextromethorphan (Mucinex Dm Er 600-30 Mg) 1 tab PO BID [facility] Last Admin: 07/03/16 07:18 Dose: 1 tab Lisinopril (Prinivil) 10 mg PO DAILY [facility] Last Admin: 07/03/16 07:17 Dose: 10 mg Methyl Salicylate (Icy Hot Cream) 0 gm TOP BID PRN PRN Reason: Pain Non-Formulary Medication (Loratadine/Pseudoephedrine) 1 tab PO [facility] Potassium Chloride (Klor-Con M20) 20 meq PO BID [facility] Last Admin: 07/03/16 07:19 Dose: 20 meq Sodium Chloride (Saline Flush) 10 ml FLUSH ASDIRECTED PRN PRN Reason: Keep Vein Open Last Admin: 07/02/16 18:15 Dose: 10 ml Sodium Chloride (Saline Flush) 10 ml FLUSH Q12HR PRN PRN Reason: Keep Vein Open Temazepam (Restoril) 15 mg PO BEDTIME PRN PRN Reason: Insomnia Discontinued Medications Docusate Sodium (Colace) 100 mg PO ASDIRECTED PRN PRN Reason: Constipation Famotidine (Pepcid) 40 mg IVPUSH ONETIME ONE Stop: 07/02/16 18:06 Last Admin: 07/02/16 18:13 Dose: 40 mg Iopamidol (Isovue-370 (76%)) 100 ml IVPUSH ONETIME ONE Stop: 07/02/16 18:54 Last Admin: 07/02/16 20:11 Dose: 100 ml Iopamidol (Isovue-370 (76%)) Confirm Administered Dose 100 ml .ROUTE .STK-MED ONE Stop: 07/02/16 18:55 Last Admin: 07/03/16 07:31 Dose: Not Given Methyl Salicylate (Icy Hot Cream) 1 gm TOP ASDIRECTED PRN PRN Reason: Pain - Exam Quality Assessment: supplemental oxygen General: alert, oriented Neck: supple Lungs: Decreased breath sounds Cardiovascular: Regular Rate Abdomen: soft Extremities: no tenderness/swelling - Problem List & Annotations (1) COPD, Severe chronic obstructive pulmonary disease SNOMED Code(s): 733377219 Code(s): J44.9 - CHRONIC OBSTRUCTIVE PULMONARY DISEASE, UNSPECIFIED Status : Acute Priority: Medium Current Visit: Yes Annotation/Comment:: Severe disease requiring chronic oxygen and steroid inhaler supplementation with secondary limited exercise tolerance, history of pulmonary hypertension, etc. and recent progressive dyspnea as above. No current significant bronchitic-type symptoms, fever, or known exposure to infection. Continue aggressive nebulizer therapy. Pulmonary consultation depending on his clinical course (2) Dyspnea SNOMED Code(s): 381887011 Code(s): R06.00 - DYSPNEA, UNSPECIFIED Status: Acute Priority: High Current Visit: Yes Onset Date: 07/02/16 Qualifiers: Dyspnea type: dyspnea on exertion Qualified Code(s): R06.09 - Other forms of dyspnea Annotation/Comment:: Significant progressive dyspnea since earlier today with probable concomitant pulmonary and cardiac components. Only mild CHF by blood work and chest x-ray, however note significant decreased exercise tolerance during the last couple of months. Chest pain protocol was not initiated in the emergency room secondary to absence of anginal-type symptoms. Initiate standard rule out ID orders. Cardiology consultation when necessary. Mckenzie carey physician assumes care in the a.m.. Consider echocardiogram on an outpatient basis at discharge with additional consideration of dobutamine Cardiolite stress test in this facility with me next week, if hospital transfer is not required. Note history of pulmonary hypertension - Problem List Review Problem List Initiated/Reviewed/Updated: Yes - Plan Plan:: Continue current care and supplemental oxygen
[2016-07-04] MEDS: Albuterol/Ipratropium 3.0-0.5 MG/3 ML Neb Soln NEB SCH ×4 (01:19→19:25)
[2016-07-04] MEDS: Dextromethorphan/guaiFENesin 600-30 MG Tab.ER PO SCH ×2 (07:47→17:57)
[2016-07-04] MEDS: Furosemide 40 MG/4 ML VIAL IVPUSH SCH ×2 (07:47→17:57)
[2016-07-04] MEDS: Potassium Chloride 20 MEQ Tab.ER PO SCH ×2 (07:48→17:57)
[2016-07-04] MEDS: Aspirin 325 MG Tab PO SCH (07:48)
[2016-07-04] MEDS: Lisinopril 10 MG Tab PO SCH (07:49)
[2016-07-04] MEDS: Atenolol 50 MG Tab PO SCH ×2 (07:49→17:59)
[2016-07-04] MEDS: Budesonide 0.5 MG/2 ML Neb Susp NEB SCH ×2 (07:50→19:25)
--- NOTE | 2016-07-04 10:38 | PCM.PN ---
- General Info Date of Service: 07/04/16 Admission Dx/Problem (Free Text): Short of breath danette with exertion Subjective Update: Pt states remains SOB with exertion and has had increased congestion today Functional Status: Reports: ambulating - Review of Systems General: Reports: Fatigue HEENT: Reports: sinus congestion Pulmonary: Reports: shortness of breath, cough, sputum Cardiovascular: Reports: No Symptoms Gastrointestinal: Reports: No symptoms Musculoskeletal: Reports: no symptoms - Patient Data Vitals - most recent: Last Vital Signs Temp 37.1 C 07/04/16 08:00 Pulse 83 07/04/16 08:00 Resp 20 07/04/16 08:00 BP 128/90 07/04/16 08:00 Pulse Ox 96 07/04/16 08:00 Weight - most recent: 66.451 kg I&O - last 24 hours: Intake & Output 07/03/16 07/04/16 07/04/16 18:59 02:59 10:59 Intake Total 1020 940 740 Output Total 1350 100 Balance 1020 -410 640 Dung Results last 24 hrs: Microbiology 07/04/16 06:00 Stool Occult Blood (DUNG) - Final Stool / Feces NEGATIVE OCCULT BLOOD Med Orders - Current: Current Medications Acetaminophen (Tylenol) 650 mg PO Q4H PRN PRN Reason: Fever Last Admin: 07/03/16 23:15 Dose: 650 mg Albuterol (Proventil Neb Soln) 2.5 mg INH Q2H PRN PRN Reason: SHORTNESS OF BREATH Albuterol/Ipratropium (Duoneb 3.0-0.5 Mg/3 Ml) 3 ml NEB Q4HRRT PRN PRN Reason: Dyspnea Albuterol/Ipratropium (Duoneb 3.0-0.5 Mg/3 Ml) 3 ml NEB Q6HRRT [facility] Last Admin: 07/04/16 07:50 Dose: 3 ml Aspirin (Aspirin) 325 mg PO QAM [facility] Last Admin: 07/04/16 07:48 Dose: 325 mg Atenolol (Tenormin) 50 mg PO BID [facility] Last Admin: 07/04/16 07:49 Dose: 50 mg Budesonide (Pulmicort) 0.5 mg NEB BIDRT [facility] Last Admin: 07/04/16 07:50 Dose: 0.5 mg Docusate Sodium (Colace) 100 mg PO DAILY PRN PRN Reason: Constipation Furosemide (Lasix) 40 mg IVPUSH BID [facility] Last Admin: 07/04/16 07:47 Dose: 40 mg Guaifenesin/Dextromethorphan (Mucinex Dm Er 600-30 Mg) 1 tab PO BID [facility] Last Admin: 07/04/16 07:47 Dose: 1 tab Lisinopril (Prinivil) 10 mg PO DAILY [facility] Last Admin: 07/04/16 07:49 Dose: 10 mg Methyl Salicylate (Icy Hot Cream) 0 gm TOP BID PRN PRN Reason: Pain Non-Formulary Medication (Loratadine/Pseudoephedrine) 1 tab PO QAM [facility] Potassium Chloride (Klor-Con M20) 20 meq PO BID [facility] Last Admin: 07/04/16 07:48 Dose: 20 meq Sodium Chloride (Saline Flush) 10 ml FLUSH ASDIRECTED PRN PRN Reason: Keep Vein Open Last Admin: 07/02/16 18:15 Dose: 10 ml Sodium Chloride (Saline Flush) 10 ml FLUSH Q12HR PRN PRN Reason: Keep Vein Open Temazepam (Restoril) 15 mg PO BEDTIME PRN PRN Reason: Insomnia Discontinued Medications Docusate Sodium (Colace) 100 mg PO ASDIRECTED PRN PRN Reason: Constipation Famotidine (Pepcid) 40 mg IVPUSH ONETIME ONE Stop: 07/02/16 18:06 Last Admin: 07/02/16 18:13 Dose: 40 mg Iopamidol (Isovue-370 (76%)) 100 ml IVPUSH ONETIME ONE Stop: 07/02/16 18:54 Last Admin: 07/02/16 20:11 Dose: 100 ml Iopamidol (Isovue-370 (76%)) Confirm Administered Dose 100 ml .ROUTE .STK-MED ONE Stop: 07/02/16 18:55 Last Admin: 07/03/16 07:31 Dose: Not Given Methyl Salicylate (Icy Hot Cream) 1 gm TOP ASDIRECTED PRN PRN Reason: Pain - Exam Quality Assessment: supplemental oxygen General: alert, oriented Neck: supple Lungs: Decreased breath sounds Cardiovascular: Regular Rate Abdomen: soft - Problem List & Annotations (1) COPD, Severe chronic obstructive pulmonary disease SNOMED Code(s): 995297840 Code(s): J44.9 - CHRONIC OBSTRUCTIVE PULMONARY DISEASE, UNSPECIFIED Status : Acute Priority: Medium Current Visit: Yes Annotation/Comment:: Severe disease requiring chronic oxygen and steroid inhaler supplementation with secondary limited exercise tolerance, history of pulmonary hypertension, etc. and recent progressive dyspnea as above. No current significant bronchitic-type symptoms, fever, or known exposure to infection. Continue aggressive nebulizer therapy. Pulmonary consultation depending on his clinical course (2) Dyspnea SNOMED Code(s): 601309122 Code(s): R06.00 - DYSPNEA, UNSPECIFIED Status: Acute Priority: High Current Visit: Yes Onset Date: 07/02/16 Qualifiers: Dyspnea type: dyspnea on exertion Qualified Code(s): R06.09 - Other forms of dyspnea Annotation/Comment:: Significant progressive dyspnea since earlier today with probable concomitant pulmonary and cardiac components. Only mild CHF by blood work and chest x-ray, however note significant decreased exercise tolerance during the last couple of months. Chest pain protocol was not initiated in the emergency room secondary to absence of anginal-type symptoms. Initiate standard rule out [place] orders. Cardiology consultation when necessary. clinical secretary physician assumes care in the a.m.. Consider echocardiogram on an outpatient basis at discharge with additional consideration of dobutamine Cardiolite stress test in this facility with me next week, if hospital transfer is not required. Note history of pulmonary hypertension - Problem List Review Problem List Initiated/Reviewed/Updated: Yes - My Orders Last 24 Hours: My Active Orders 07/03/16 Lunch Regular Diet [DIET] - Plan Plan:: Continue current care and supplemental oxygen Will continue to monitor. Will try to increase ambulation today as tolerated
[2016-07-04] MEDS: Acetaminophen 325 MG Tab PO PRN (23:59)
[2016-07-05] MEDS: Albuterol/Ipratropium 3.0-0.5 MG/3 ML Neb Soln NEB SCH ×3 (03:05→14:23)
[2016-07-05] MEDS: Dextromethorphan/guaiFENesin 600-30 MG Tab.ER PO SCH (08:19)
[2016-07-05] MEDS: Budesonide 0.5 MG/2 ML Neb Susp NEB SCH (08:19)
[2016-07-05] MEDS: Lisinopril 10 MG Tab PO SCH ×2 (08:20→18:56)
[2016-07-05] MEDS: Aspirin 325 MG Tab PO SCH (08:20)
[2016-07-05] MEDS: Furosemide 40 MG/4 ML VIAL IVPUSH SCH ×2 (08:21→08:44)
[2016-07-05] MEDS: Potassium Chloride 20 MEQ Tab.ER PO SCH (08:21)
[2016-07-05] MEDS: Atenolol 50 MG Tab PO SCH (08:21)
[2016-07-05] MEDS: Sodium Chloride 0.9% 10 ML Syringe FLUSH PRN (08:33)
--- NOTE | 2016-07-05 11:17 | PCM.DCSUM1 ---
Discharge Summary - Hospital Course Free Text/Narrative:: Pt admitted for dyspnea and COPD exacerbation. Has improved slowly. Pt on oxygen at home. Has ambulated in hallways today with minimal change in SOB. Has remained stable. Pt feels he has returned to baseline HPI Initial Comments: Pt admitted with increased SOB and dyspnea with exertion - Discharge Data Discharge Date: 07/05/16 Discharge Disposition: Home, Self-Care 01 Condition: Good - Discharge Diagnosis/Problem(s) (1) COPD, Severe chronic obstructive pulmonary disease SNOMED Code(s): 686169372 ICD Code: J44.9 - CHRONIC OBSTRUCTIVE PULMONARY DISEASE, UNSPECIFIED Status : Acute Priority: Medium Current Visit: Yes Problem Details: Severe disease requiring chronic oxygen and steroid inhaler supplementation with secondary limited exercise tolerance, history of pulmonary hypertension, etc. and recent progressive dyspnea as above. No current significant bronchitic-type symptoms, fever, or known exposure to infection. Continue aggressive nebulizer therapy. Pulmonary consultation depending on his clinical course (2) Dyspnea SNOMED Code(s): 387214373 ICD Code: R06.00 - DYSPNEA, UNSPECIFIED Status: Acute Priority: High Current Visit: Yes Onset Date: 07/02/16 Problem Details: Significant progressive dyspnea since earlier today with probable concomitant pulmonary and cardiac components. Only mild CHF by blood work and chest x-ray, however note significant decreased exercise tolerance during the last couple of months. Chest pain protocol was not initiated in the emergency room secondary to absence of anginal-type symptoms. Initiate standard rule out [place] orders. Cardiology consultation when necessary. [facility] physician assumes care in the a.m.. Consider echocardiogram on an outpatient basis at discharge with additional consideration of dobutamine Cardiolite stress test in this facility with me next week, if hospital transfer is not required. Note history of pulmonary hypertension Qualifiers: Dyspnea type: dyspnea on exertion Qualified Code(s): R06.09 - Other forms of dyspnea - Patient Summary/Data Hospital Course: Pt slowly improved during admission. Now able to tolerate exertion at baseline level - Patient Instructions Diet: Usual Diet as Tolerated Activity: As Tolerated Notify Provider of: Fever - Discharge Plan Home Medications: Home Meds Albuterol/Ipratropium [DuoNeb 3.0-0.5 MG/3 ML] 1 ampule INH QID 03/20/14 [ History] Aspirin 325 mg PO QAM 03/20/14 [History] Atenolol [Tenormin] 50 mg PO BID 03/20/14 [History] Fluticasone Propionate [Flonase] 1 spray NASBOTH QAM PRN 03/20/14 [History] Loratadine/Pseudoephedrine [Sm Loratadine D 12 Hour Tablet] 1 tab PO QAM [History] Multivitamin [Tab A Henry] 1 tab PO DAILY@1200 03/20/14 [History] guaiFENesin/Pseudoephedrine [Mucinex D ER 600-60 MG] 1 tab PO Q12HR 03/20/14 [ History] Ibuprofen [Advil] 400 mg PO ASDIRECTED PRN 10/16/14 [History] Docusate Sodium [Colace] 100 mg PO DAILY PRN 03/27/15 [History] Albuterol [IJD: Ventolin HFA] 2 puff INH QID PRN 07/02/16 [History] Budesonide [Pulmicort] 0.5 mg NEB BIDRT 07/02/16 [History] Non-Formulary Medication [NF Drug] 2 tab PO DAILY 07/02/16 [History] Polyethylene Glycol 3350 [MiraLAX] 17 gm PO DAILY 07/02/16 [History] Forms: ED Department Discharge Referrals: Troy Cates PA [Primary Care Provider] - - Discharge Summary/Plan Comment Discharge Summary/Plan Comment: Follow up in clinic with usual provider - Patient Data Vitals - Most Recent: Last Vital Signs Temp 36.5 C 07/05/16 07:30 Pulse 78 07/05/16 10:30 Resp 20 07/05/16 07:30 BP 114/76 07/05/16 10:30 Pulse Ox 97 07/05/16 10:30 Weight - Most Recent: 66.542 kg GOLD Results - Last 24 hrs: Microbiology 07/04/16 06:00 Stool Occult Blood (GOLD) - Final Stool / Feces NEGATIVE OCCULT BLOOD Med Orders - Current: Current Medications Acetaminophen (Tylenol) 650 mg PO Q4H PRN PRN Reason: Fever Last Admin: 07/04/16 23:59 Dose: 650 mg Albuterol (Proventil Neb Soln) 2.5 mg INH Q2H PRN PRN Reason: SHORTNESS OF BREATH Albuterol/Ipratropium (Duoneb 3.0-0.5 Mg/3 Ml) 3 ml NEB Q4HRRT PRN PRN Reason: Dyspnea Last Admin: 07/05/16 04:10 Dose: 3 ml Albuterol/Ipratropium (Duoneb 3.0-0.5 Mg/3 Ml) 3 ml NEB Q6HRRT [facility] Last Admin: 07/05/16 08:19 Dose: 3 ml Aspirin (Aspirin) 325 mg PO QAM [facility] Last Admin: 07/05/16 08:20 Dose: 325 mg Atenolol (Tenormin) 50 mg PO BID [facility] Last Admin: 07/05/16 08:21 Dose: 50 mg Budesonide (Pulmicort) 0.5 mg NEB BIDRT [facility] Last Admin: 07/05/16 08:19 Dose: 0.5 mg Docusate Sodium (Colace) 100 mg PO DAILY PRN PRN Reason: Constipation Furosemide (Lasix) 40 mg IVPUSH BID [facility] Last Admin: 07/05/16 08:44 Dose: Not Given Guaifenesin/Dextromethorphan (Mucinex Dm Er 600-30 Mg) 1 tab PO BID [facility] Last Admin: 07/05/16 08:19 Dose: 1 tab Lisinopril (Prinivil) 10 mg PO DAILY [facility] Last Admin: 07/04/16 07:49 Dose: 10 mg Methyl Salicylate (Icy Hot Cream) 0 gm TOP BID PRN PRN Reason: Pain Non-Formulary Medication (Loratadine/Pseudoephedrine) 1 tab PO [facility] Potassium Chloride (Klor-Con M20) 20 meq PO BID [facility] Last Admin: 07/05/16 08:21 Dose: 20 meq Sodium Chloride (Saline Flush) 10 ml FLUSH ASDIRECTED PRN PRN Reason: Keep Vein Open Last Admin: 07/05/16 08:33 Dose: 10 ml Sodium Chloride (Saline Flush) 10 ml FLUSH Q12HR PRN PRN Reason: Keep Vein Open Temazepam (Restoril) 15 mg PO BEDTIME PRN PRN Reason: Insomnia Discontinued Medications Docusate Sodium (Colace) 100 mg PO ASDIRECTED PRN PRN Reason: Constipation Famotidine (Pepcid) 40 mg IVPUSH ONETIME ONE Stop: 07/02/16 18:06 Last Admin: 05/25/17 18:13 Dose: 40 mg Iopamidol (Isovue-370 (76%)) 100 ml IVPUSH ONETIME ONE Stop: 07/02/16 18:54 Last Admin: 07/02/16 20:11 Dose: 100 ml Iopamidol (Isovue-370 (76%)) Confirm Administered Dose 100 ml .ROUTE .STK-MED ONE Stop: 07/02/16 18:55 Last Admin: 07/03/16 07:31 Dose: Not Given Methyl Salicylate (Icy Hot Cream) 1 gm TOP ASDIRECTED PRN PRN Reason: Pain *Q Meaningful Use (DIS) - VTE *Q VTE Criteria *Q: - Stroke *Q Stroke Criteria *Q: - AMI *Q AMI Criteria *Q:
[2016-07-05 18:56] VITALS: BP 97/62
== END 2016-07-05 15:00 | disposition home or self-care (01) | DRG 191 ==
LOC: LL.ED 17:53 → LL.MS 19:38 → UNDOADMIN 19:38 → LL.MS 20:44 → UNDODISIN 07-05 15:00
PROVIDERS: ADMIT Family Medicine; ATTEND Family Medicine
DX: J44.1 Chronic obstructive pulmonary disease with (acute) exacerbation (principal); E87.1 Hypo-osmolality and hyponatremia; I10 Essential (primary) hypertension; I50.9 Heart failure, unspecified; Z99.81 Dependence on supplemental oxygen; Z79.51 Long term (current) use of inhaled steroids; J84.10 Pulmonary fibrosis, unspecified; Z87.891 Personal history of nicotine dependence; I44.0 Atrioventricular block, first degree; I27.2 Other secondary pulmonary hypertension; F41.8 Other specified anxiety disorders; K21.9 Gastro-esophageal reflux disease without esophagitis; M19.90 Unspecified osteoarthritis, unspecified site; K59.09 Other constipation; H91.90 Unspecified hearing loss, unspecified ear; H54.7 Unspecified visual loss; Z79.82 Long term (current) use of aspirin; Z88.8 Allergy status to other drugs, medicaments and biological substances; Z91.048 Other nonmedicinal substance allergy status; R06.09 Other forms of dyspnea; R06.02 Shortness of breath; R61 Generalized hyperhidrosis
CPT/HCPCS: 36415; 71010; 71275; 80053; 82550; 82553; 83605; 83735; 83880; 84443; 84484; 84550; 85025; 85379; 85610; 85730; 87040 ×2; 93005; 96374; 99285; J7050; Q9967; 80061; 82272; 83036; 87338; 94640; 94664; A9270-GY; J1940; S0028

== ENCOUNTER 2016-07-06 02:19 | Emergency (ER) | payer MEDICARE, BC ==
[2016-07-06] MEDS ORDERED: Albuterol 0.083% 2.5 MG/3 ML Neb Soln ONE (02:24)
[2016-07-06] MEDS ORDERED: Albuterol 0.083% 2.5 MG/3 ML Neb Soln NEB ONE ×2 (02:28→03:42)
[2016-07-06] MEDS ORDERED: LORazepam 2 MG/ML MDV IVPUSH ONE ×2 (02:51→03:42)
[2016-07-06] MEDS ORDERED: methylPREDNISolone Sodium Succinate 125 MG/2 ML SDV IVPUSH ONE (02:51)
[2016-07-06 02:57] LABS: CHLORIDE,CL 94 mmol/L (98-107)
[2016-07-06] MEDS: Sodium Chloride 0.9% 10 ML Syringe FLUSH PRN ×3 (02:57→03:46)
[2016-07-06 03:01] LABS: SODIUM,NA 126 mmol/L (136-145)
[2016-07-06] MEDS ORDERED: LORazepam 2 MG/ML MDV ONE ×2 (03:42→04:16)
--- NOTE | 2016-07-06 03:50 | EDM.PDOC ---
ED HPI GENERAL MEDICAL PROBLEM - General Chief Complaint: Respiratory Problem Stated Complaint: shortness of breath Time Seen by Provider: 07/06/16 02:40 Source of Information: Reports: Patient, EMS, Family History Limitations: Reports: Respiratory Distress - History of Present Illness INITIAL COMMENTS - FREE TEXT/NARRATIVE: Pt with acute onset of SOB. Unable to breath. Had been in hospital for past two days for COPD exacerbation. Discharged today. Had been doing well until acute episode tonight Onset: Sudden Duration: Hour(s): Location: Reports: Chest Severity: Severe Improves with: Reports: Medication Worsens with: Reports: Breathing Associated Symptoms: Reports: Cough Treatments TECHNICAL ANALYST: Reports: Breathing Treatments, Oxygen - Related Data Allergies Allergy/AdvReac Type Severity Reaction Status Date / Time levonorgestrel Allergy Cannot Verified 07/06/16 02:43 Remember mold Allergy Shortness Uncoded 07/06/16 02:43 of Breath pollen Allergy Cannot Uncoded 07/06/16 02:43 Remember Home Meds: Home Meds Albuterol/Ipratropium [DuoNeb 3.0-0.5 MG/3 ML] 1 ampule INH QID 03/20/14 [ History] Aspirin 325 mg PO QAM 03/20/14 [History] Atenolol [Tenormin] 50 mg PO BID 03/20/14 [History] Fluticasone Propionate [Flonase] 1 spray NASBOTH QAM PRN 03/20/14 [History] Multivitamin [Tab A Henry] 1 tab PO DAILY@1200 03/20/14 [History] Ibuprofen [Advil] 400 mg PO ASDIRECTED PRN 10/16/14 [History] Docusate Sodium [Colace] 100 mg PO DAILY PRN 03/27/15 [History] Albuterol [IJD: Ventolin HFA] 2 puff INH QID PRN 07/02/16 [History] Budesonide [Pulmicort] 0.5 mg NEB BIDRT 07/02/16 [History] Non-Formulary Medication [NF Drug] 2 tab PO DAILY 07/02/16 [History] Polyethylene Glycol 3350 [MiraLAX] 17 gm PO DAILY 07/02/16 [History] Past Medical History HEENT History: Reports: Allergic Rhinitis, Cataract, Hard of Hearing, Impaired Vision, Sinusitis, Other (See Below) Other HEENT History: wears glasses allergic rhinitis with chronic sinusitis, presbycusis bilaterally with no current hearing aid therapy, nasal septum deviation, intermittent tinnitus Cardiovascular History: Reports: Hypertension, Pulmonary Hypertension, SOB on Exertion, Other (See Below) Other Cardiovascular History: Dyspnea secondary to COPD Respiratory History: Reports: Bronchitis, Recurrent, COPD, Intubation, Previous , Pulmonary Fibrosis, Sleep Apnea, Other (See Below) Other Respiratory History: 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 , history of unknown type of right basilar pulmonary nodule 2.[address] scan of chest on 08/06/15 with additional left lower lung lesion and some right hilar mediastinal adenopathy a similar Gastrointestinal History: Reports: Bowel Obstruction, Cholelithiasis, Chronic Constipation, Colon Polyp, GERD, Other (See Below) Other Gastrointestinal History: Small bowel obstruction on 09/16/12 after colonoscopy, small bowel ileus after appendicitis as below, tubular adenoma of the transverse colon on 09/15/12, Gilbert's syndrome, mild dysphagia Genitourinary History: Reports: BPH, Other (See Below) Other Genitourinary History: BPH with history of PSA elevation with subsequent normalization, erectile dysfunction Musculoskeletal History: Reports: Arthritis, Back Pain, Chronic, Fracture, Neck Pain, Chronic, Osteoarthritis, Osteoporosis, Other (See Below) Other Musculoskeletal History: Fracture of the left clavicle in 1997, previous vertebral body compression fractures, right Colles' wrist fracture on 03/20/14 Neurological History: Reports: None Psychiatric History: Reports: Anxiety, Depression Endocrine/Metabolic History: Reports: Osteoporosis, Other (See Below) Other Endocrine/Metabolic History: Hyponatremia Hematologic History: Reports: None Immunologic History: Reports: None Oncologic (Cancer) History: Reports: None Dermatologic History: Reports: None - Infectious Disease History Infectious Disease History: Reports: Chicken Pox, Measles, Mumps, Scarlet Fever - Past Surgical History Head Surgeries/Procedures: Reports: None HEENT Surgical History: Reports: Adenoidectomy, Cataract Surgery, Oral Surgery, Tonsillectomy, Other (See Below) Other HEENT Surgeries/Procedures: Bilateral cataract surgery initially on the left side in about 1997 and on the right side in 2004, complete upper teeth extraction with multiple lower teeth extractions, tonsillectomy and adenoidectomy at age 3 Cardiovascular Surgical History: Reports: None Respiratory Surgical History: Reports: None GI Surgical History: Reports: Appendectomy, Cholecystectomy, Colonoscopy, Hernia , Inguinal, Polypectomy, Other (See Below) Other GI Surgeries/Procedures: Laparoscopic cholecystectomy in about 1995, last colonoscopy on 09/15/12, appendectomy on 10/13/14, left inguinal hernia repair with mesh placement on 03/28/15 Male Surgical History: Reports: None Neurological Surgical History: Reports: C-Spine, Laminectomy, Other (See Below) Other Neurological Surgeries/Procedures: Laminectomy of C6 in about 1994 Musculoskeletal Surgical History: Reports: Arthroscopic Procedure, Shoulder Surgery, Other (See Below) Other Musculoskeletal Surgeries/Procedures:: Bilateral arthroscopic shoulder repair with right-sided surgery 1996 and left-sided surgery in 1997, left clavicular repair in 1997 Oncologic Surgical History: Reports: None Dermatological Surgical History: Reports: None - Past Imaging History Past Imaging History: Reports: Carotid US (Left carotid artery Doppler studies on 04/26/11), CAT Scan (CT of the chest on 08/06/15, Last CT of the abdomen and pelvis with contrast on 10/26/14 with previous evaluation on 09/16/12, CT of the sinuses on 06/12/08), Sleep Study (07/08/08), Stress Testing (Persantine Cardiolite stress test on 07/28/06 with ejection fraction of 60%), Swallow Study (11/21/15) Social & Family History - Family History HEENT: Reports: None Cardiac: Reports: Arrhythmia, CAD, Heart Failure, High Cholesterol, Hypertension , AR, Other (See Below) Other Cardiac Family History: Father with history of bradycardia and fatal AR at age 82, maternal uncles x3 with fatal MIs in their 60s, maternal aunt with history of CABG and AR. hypertension and hyperlipidemia in father Respiratory: Reports: None GI: Reports: Cholelithiasis, GI bleed, Other (See Below) Other GI Family History: Mother with cholelithiasis, mother with lower GI bleed at 103 as below : Reports: None OBGYN: Reports: Dysfunctional uterine bleeding, Fibroids, Recurrent Spontaneous Other OBGYN Family History: Mother with recurrent SABs, daughter with history of uterine fibroids with subsequent breast cancer Musculoskeletal: Reports: None Neurological: Reports: Alzheimers Disease, CVA, Dementia, Other (See Below) Other Neurological Family History: Father with CVA at age 59, mother with fatal CVA at age 105 with history of Alzheimer's disease Psychiatric: Reports: None Endocrine/Metabolic: Reports: Hypothyroidism, Other (See Below) Other Endocrine/Metabolic Family History: mother with hypothyroidism Hematologic: Reports: Anemia, Other (See Below) Other Hematologic Family History: Lower GI bleed with anemia and required blood transfusion in mother at 103 with no workup Immunologic: Reports: None Dermatologic: Reports: None Oncologic: Reports: Breast, Other (See Below) Other Oncologic Family History: Daughter with fatal breast cancer at age 37, paternal grandmother with fatal breast cancer at age 67 but she also suffered from cervical cancer, daughter with breast cancer at age 41, brother with fatal unknown type of metastatic cancer at age 57 - Tobacco Use Smoking Status *Q: Former Smoker Years of Tobacco use: 40 Packs/Tins Daily: 2.5 Used Tobacco, but Quit: Yes Month Tobacco Last Used: 10/09/1994 Second Hand Smoke Exposure: No - Caffeine Use Caffeine Use: Reports: Coffee (1.5 cups per day), Tea (One glass per week). 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) ED ROS GENERAL - Review of Systems Review Of Systems: See Below Constitutional: Reports: Weakness, Fatigue HEENT: Reports: No Symptoms Respiratory: Reports: Shortness of Breath, Wheezing Cardiovascular: Reports: No Symptoms GI/Abdominal: Reports: No Symptoms Musculoskeletal: Reports: No Symptoms ED EXAM, GENERAL - Physical Exam Exam: See Below General Appearance: Moderate Distress Throat/Mouth: Normal Oropharynx Neck: Supple Respiratory/Chest: Respiratory Distress, Wheezing, Retractions, Prolonged Expiration Cardiovascular: Regular Rate, Rhythm GI/Abdominal: Soft Extremities: Normal Range of Motion Neurological: No Motor/Sensory Deficits Course - Vital Signs Last Recorded V/S: Last Vital Signs Temp 36.6 C 07/06/16 03:07 Pulse 95 07/06/16 03:14 Resp 25 H 07/06/16 03:14 BP 126/82 07/06/16 03:14 Pulse Ox 98 07/06/16 03:14 - Orders/Labs/Meds Orders: Active Orders 24 hr Category Date Time Status RT Aerosol Therapy [RC] ASDIRECTED Care 07/06/16 02:28 Active RT Aerosol Therapy [RC] ASDIRECTED Care 07/06/16 03:42 Ordered Chest 1V Frontal [CR] Stat Exams 07/06/16 02:28 Taken Sodium Chloride 0.9% [Saline Flush] Med 07/06/16 02:29 Active 10 ml FLUSH ASDIRECTED PRN Saline Lock Insert [OM.PC] Routine Oth 07/06/16 02:29 Ordered Medication Orders Sodium Chloride (Saline Flush) 10 ml FLUSH ASDIRECTED PRN PRN Reason: Keep Vein Open Last Admin: 07/06/16 03:00 Dose: 10 ml Admin: 07/06/16 02:57 Dose: 10 ml Labs: Laboratory Tests 07/06/16 07/06/16 Range/Units 02:35 02:35 WBC 14.7 H (4.0-10.2) K/uL RBC 5.15 (4.33-5.41) M/uL Hgb 15.7 (13.1-16.8) g/dL Hct 45.0 (39.0-49.0) % MCV 87.4 (84.0-98.0) fL MCH 30.5 (28.2-33.3) pg MCHC 34.9 (31.7-36.0) g/dL RDW 12.9 (11.2-14.1) % Plt Count 279 (150-350) K/uL Neut % (Auto) 81.8 H (45.0-80.0) % Lymph % (Auto) 8.2 L (10.0-50.0) % [place] % (Auto) 7.9 (2.0-14.0) % Eos % (Auto) 1.5 (0.0-5.0) % Baso % (Auto) 0.6 (0.0-2.0) % Neut # (Auto) 12.00 H (1.40-7.00) K/uL Lymph # (Auto) 1.20 (0.50-3.50) K/uL [place] # (Auto) 1.16 H (0.00-1.00) K/uL Eos # (Auto) 0.22 (0.00-0.50) K/uL Baso # (Auto) 0.09 (0.00-0.20) K/uL Sodium 126 L (136-145) mmol/L Potassium 5.8 H* D (3.5-5.1) mmol/L Chloride 94 L (98-107) mmol/L Carbon Dioxide 27.7 (21.0-32.0) mmol/L BUN 19 H (7-18) mg/dL Creatinine 0.97 (0.51-1.17) mg/dL Est Cr Clr Drug Dosing 60.02 mL/min Estimated GFR (MDRD) > 60 mL/min Glucose 137 H (74-106) mg/dL Calcium 8.3 L (8.5-10.1) mg/dL Total Bilirubin 1.0 (0.2-1.0) mg/dL AST 40 H (15-37) U/L ALT 47 (12-78) U/L Alkaline Phosphatase 90 (46-116) IU/L Total Protein 7.2 (6.4-8.2) g/dL Albumin 3.9 (3.4-5.0) g/dL Meds: Medications Generic Name Dose Route Start Last Admin Trade Name Freq PRN Reason Stop Dose Admin Sodium Chloride 10 ml 07/06/16 02:29 07/06/16 03:00 Saline Flush FLUSH 10 ml ASDIRECTED PRN Administration Keep Vein Open Discontinued Medications Generic Name Dose Route Start Last Admin Trade Name Freq PRN Reason Stop Dose Admin Albuterol Confirm 07/06/16 02:24 07/06/16 02:57 Proventil Neb Soln Administered 07/06/16 02:25 Not Given Dose 2.5 mg .ROUTE .STK-MED ONE Albuterol 2.5 mg 07/06/16 02:28 07/06/16 02:25 Proventil Neb Soln NEB 07/06/16 02:29 2.5 mg ONETIME ONE Administration Albuterol 2.5 mg 07/06/16 03:42 Proventil Neb Soln NEB 07/06/16 03:43 ONETIME ONE Lorazepam 1 mg 07/06/16 02:51 07/06/16 02:56 Ativan IVPUSH 07/06/16 02:52 1 mg ONETIME ONE Administration Lorazepam 1 mg 07/06/16 03:42 Ativan IVPUSH 07/06/16 03:43 ONETIME ONE Lorazepam Confirm 07/06/16 03:42 Ativan Administered 07/06/16 03:43 Dose 2 mg .ROUTE .STK-MED ONE Methylprednisolone Sodium Succinate 125 mg 07/06/16 02:51 07/06/16 02:58 Solu-Medrol IVPUSH 07/06/16 02:52 125 mg ONETIME ONE Administration - Re-Assessments/Exams Free Text/Narrative Re-Assessment/Exam: 07/06/16 03:48 Pt given Albuterol X 2 as well Ativan X2 and Solu-medrol. Pt improved but remains SOB and with increased respiratory rate D/W Dr Field On-call hospitalist [facility]. Will accept in transfer 07/06/16 03:49 Departure - Departure Time of Disposition: 04:00 Disposition: DC/Tfer to [facility] 02 Clinical Impression: COPD, Severe chronic obstructive pulmonary disease - Discharge Information Forms: ED Department Discharge - My Orders Last 24 Hours: My Active Orders 07/06/16 02:28 RT Aerosol Therapy [RC] ASDIRECTED Chest 1V Frontal [CR] Stat 07/06/16 02:29 Sodium Chloride 0.9% [Saline Flush] 10 ml FLUSH ASDIRECTED PRN Saline Lock Insert [OM.PC] Routine 07/06/16 03:42 RT Aerosol Therapy [RC] ASDIRECTED - Assessment/Plan Last 24 Hours: My Active Orders 07/06/16 02:28 RT Aerosol Therapy [RC] ASDIRECTED Chest 1V Frontal [CR] Stat 07/06/16 02:29 Sodium Chloride 0.9% [Saline Flush] 10 ml FLUSH ASDIRECTED PRN Saline Lock Insert [OM.PC] Routine 07/06/16 03:42 RT Aerosol Therapy [RC] ASDIRECTED
[2016-07-06] MEDS ORDERED: Morphine 4 MG/ML Syringe IVPUSH ONE (04:24)
[2016-07-06] MEDS ORDERED: Morphine 4 MG/ML Syringe ONE (04:25)
[2016-07-06 04:57] VITALS: BP 140/85
[2016-07-06] MEDS ORDERED: Sodium Chloride 0.9% 1,000 ML IV SCH (05:15)
== END 2016-07-06 04:30 ==
LOC: LL.ED 02:19
DX: J44.9 Chronic obstructive pulmonary disease, unspecified (principal); K21.9 Gastro-esophageal reflux disease without esophagitis; I10 Essential (primary) hypertension; F41.9 Anxiety disorder, unspecified; M19.90 Unspecified osteoarthritis, unspecified site; F32.9 Major depressive disorder, single episode, unspecified; Z90.49 Acquired absence of other specified parts of digestive tract; Z88.8 Allergy status to other drugs, medicaments and biological substances; Z79.899 Other long term (current) drug therapy; Z87.891 Personal history of nicotine dependence; Z90.89 Acquired absence of other organs; Z98.41 Cataract extraction status, right eye; Z98.42 Cataract extraction status, left eye; Z98.890 Other specified postprocedural states; Z79.82 Long term (current) use of aspirin
CPT/HCPCS: 36415; 71010; 80053; 85025; 94640; 96374; 96375; 96376; 99285; J2060; J2270; J2930; J7050; J7620; 99284

== ENCOUNTER 2016-07-17 16:45 | Emergency (ER) | payer MEDICARE, BC ==
--- NOTE | 2016-07-17 17:11 | EDM.PDOC ---
ED HPI GENERAL MEDICAL PROBLEM - General Chief Complaint: Cardiovascular Problem Stated Complaint: increased heart rate Time Seen by Provider: 07/17/16 16:48 Source of Information: Reports: Patient, Family (), RN History Limitations: Reports: No Limitations - History of Present Illness INITIAL COMMENTS - FREE TEXT/NARRATIVE: '" My pulse has been racing and it should be at around 80. It's been around 120. I am more short of breath today. I was breathing good when the prednisone was at 40. I called the home health nurse and she thought I was tapering too vast. Maribell ( home health nurse ) thought it was too fast." He was hospitalized at [facility] last week and I had a heart attack. I went in Wednesday morning and got out on ." Symptoms started this morning. Onset: Gradual Severity: Severe Worsens with: Reports: Movement Context: Denies: Sick Contact Associated Symptoms: Denies: Cough, Headaches - Related Data Allergies Allergy/AdvReac Type Severity Reaction Status Date / Time levonorgestrel Allergy Cannot Verified 07/17/16 16:53 Remember mold Allergy Shortness Uncoded 07/17/16 16:53 of Breath pollen Allergy Cannot Uncoded 07/17/16 16:53 Remember Home Meds: Home Meds Albuterol/Ipratropium [DuoNeb 3.0-0.5 MG/3 ML] 1 ampule INH QID 03/20/14 [ History] Multivitamin [Tab A Henry] 1 tab PO DAILY@1200 03/20/14 [History] Docusate Sodium [Colace] 100 mg PO DAILY PRN 03/27/15 [History] Albuterol [IJD: Ventolin HFA] 2 puff INH QID PRN 07/02/16 [History] Budesonide [Pulmicort] 0.5 mg NEB BIDRT 07/02/16 [History] Aspirin [Halfprin] 81 mg PO BRK 07/17/16 [History] Carvedilol 12.5 mg PO BID 07/17/16 [History] Clopidogrel [Plavix] 75 mg PO DAILY 07/17/16 [History] LORazepam 0.5 mg PO Q8H PRN 07/17/16 [History] Loratadine 10 mg PO BEDTIME 07/17/16 [History] Nystatin 1 applic TOP ASDIRECTED 07/17/16 [History] Pantoprazole Sodium [Protonix] 40 mg PO DAILY 07/17/16 [History] Prednisone [IJD: Prednisone] 20 mg PO DAILY 07/17/16 [History] Psyllium Husk [Metamucil] 2 tsp PO DAILY 07/17/16 [History] Sodium Chloride 1 gm PO TID 07/17/16 [History] atorvaSTATin [Lipitor] 40 mg PO BEDTIME 07/17/16 [History] guaiFENesin [Mucus Relief] 600 mg PO BID 07/17/16 [History] Past Medical History HEENT History: Reports: Allergic Rhinitis, Cataract, Hard of Hearing, Impaired Vision, Sinusitis, Other (See Below) Other HEENT History: wears glasses allergic rhinitis with chronic sinusitis, presbycusis bilaterally with no current hearing aid therapy, nasal septum deviation, intermittent tinnitus Cardiovascular History: Reports: Hypertension, Pulmonary Hypertension, SOB on Exertion, Other (See Below) Other Cardiovascular History: Dyspnea secondary to COPD Respiratory History: Reports: Bronchitis, Recurrent, COPD, Intubation, Previous , Pulmonary Fibrosis, Sleep Apnea, Other (See Below) Other Respiratory History: 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 , history of unknown type of right basilar pulmonary nodule 2.[address] scan of chest on 08/06/15 with additional left lower lung lesion and some right hilar mediastinal adenopathy a similar Gastrointestinal History: Reports: Bowel Obstruction, Cholelithiasis, Chronic Constipation, Colon Polyp, GERD, Other (See Below) Other Gastrointestinal History: Small bowel obstruction on 09/16/12 after colonoscopy, small bowel ileus after appendicitis as below, tubular adenoma of the transverse colon on 09/15/12, Gilbert's syndrome, mild dysphagia Genitourinary History: Reports: BPH, Other (See Below) Other Genitourinary History: BPH with history of PSA elevation with subsequent normalization, erectile dysfunction Musculoskeletal History: Reports: Arthritis, Back Pain, Chronic, Fracture, Neck Pain, Chronic, Osteoarthritis, Osteoporosis, Other (See Below) Other Musculoskeletal History: Fracture of the left clavicle in 1997, previous vertebral body compression fractures, right Colles' wrist fracture on 03/20/14 Neurological History: Reports: None Psychiatric History: Reports: Anxiety, Depression Endocrine/Metabolic History: Reports: Osteoporosis, Other (See Below) Other Endocrine/Metabolic History: Hyponatremia Hematologic History: Reports: None Immunologic History: Reports: None Oncologic (Cancer) History: Reports: None Dermatologic History: Reports: None - Infectious Disease History Infectious Disease History: Reports: Chicken Pox, Measles, Mumps, Scarlet Fever - Past Surgical History Head Surgeries/Procedures: Reports: None HEENT Surgical History: Reports: Adenoidectomy, Cataract Surgery, Oral Surgery, Tonsillectomy, Other (See Below) Other HEENT Surgeries/Procedures: Bilateral cataract surgery initially on the left side in about 1997 and on the right side in 2004, complete upper teeth extraction with multiple lower teeth extractions, tonsillectomy and adenoidectomy at age 3 Cardiovascular Surgical History: Reports: None Respiratory Surgical History: Reports: None GI Surgical History: Reports: Appendectomy, Cholecystectomy, Colonoscopy, Hernia , Inguinal, Polypectomy, Other (See Below) Other GI Surgeries/Procedures: Laparoscopic cholecystectomy in about 1995, last colonoscopy on 09/15/12, appendectomy on 10/13/14, left inguinal hernia repair with mesh placement on 03/28/15 Male Surgical History: Reports: None Neurological Surgical History: Reports: C-Spine, Laminectomy, Other (See Below) Other Neurological Surgeries/Procedures: Laminectomy of C6 in about 1994 Musculoskeletal Surgical History: Reports: Arthroscopic Procedure, Shoulder Surgery, Other (See Below) Other Musculoskeletal Surgeries/Procedures:: Bilateral arthroscopic shoulder repair with right-sided surgery 1996 and left-sided surgery in 1997, left clavicular repair in 1997 Oncologic Surgical History: Reports: None Dermatological Surgical History: Reports: None - Past Imaging History Past Imaging History: Reports: Carotid US (Left carotid artery Doppler studies on 04/26/11), CAT Scan (CT of the chest on 08/06/15, Last CT of the abdomen and pelvis with contrast on 10/26/14 with previous evaluation on 09/16/12, CT of the sinuses on 06/12/08), Sleep Study (07/08/08), Stress Testing (Persantine Cardiolite stress test on 07/28/06 with ejection fraction of 60%), Swallow Study (11/21/15) Social & Family History - Family History HEENT: Reports: None Cardiac: Reports: Arrhythmia, CAD, Heart Failure, High Cholesterol, Hypertension , FL, Other (See Below) Other Cardiac Family History: Father with history of bradycardia and fatal FL at age 82, maternal uncles x3 with fatal MIs in their 60s, maternal aunt with history of CABG and FL. hypertension and hyperlipidemia in father Respiratory: Reports: None GI: Reports: Cholelithiasis, GI bleed, Other (See Below) Other GI Family History: Mother with cholelithiasis, mother with lower GI bleed at 103 as below : Reports: None OBGYN: Reports: Dysfunctional uterine bleeding, Fibroids, Recurrent Spontaneous Other OBGYN Family History: Mother with recurrent SABs, daughter with history of uterine fibroids with subsequent breast cancer Musculoskeletal: Reports: None Neurological: Reports: Alzheimers Disease, CVA, Dementia, Other (See Below) Other Neurological Family History: Father with CVA at age 59, mother with fatal CVA at age 105 with history of Alzheimer's disease Psychiatric: Reports: None Endocrine/Metabolic: Reports: Hypothyroidism, Other (See Below) Other Endocrine/Metabolic Family History: mother with hypothyroidism Hematologic: Reports: Anemia, Other (See Below) Other Hematologic Family History: Lower GI bleed with anemia and required blood transfusion in mother at 103 with no workup Immunologic: Reports: None Dermatologic: Reports: None Oncologic: Reports: Breast, Other (See Below) Other Oncologic Family History: Daughter with fatal breast cancer at age 37, paternal grandmother with fatal breast cancer at age 67 but she also suffered from cervical cancer, daughter with breast cancer at age 41, brother with fatal unknown type of metastatic cancer at age 57 - Tobacco Use Smoking Status *Q: Former Smoker Years of Tobacco use: 40 Packs/Tins Daily: 2.5 Used Tobacco, but Quit: Yes Month Tobacco Last Used: 10/09/1994 Second Hand Smoke Exposure: No - Caffeine Use Caffeine Use: Reports: Coffee (1.5 cups per day), Tea (One glass per week). 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) ED ROS GENERAL - Review of Systems Review Of Systems: See Below HEENT: Denies: Eye Pain, Nosebleed Respiratory: Reports: Shortness of Breath GI/Abdominal: Reports: Black Stool (black stools for 4 days according to his ) : Reports: No Symptoms, Other (Slow urnary stream at times) Skin: Reports: No Symptoms Psychiatric: Reports: No Symptoms Hematologic/Lymphatic: Reports: Easy Bruising Immunologic: Reports: No Symptoms ED EXAM, GENERAL - Physical Exam Exam: See Below Exam Limited By: No Limitations General Appearance: Alert, No Apparent Distress Eye Exam: Bilateral Eye: Normal Inspection, Nystagmus Ears: Normal External Exam Ear Exam: Bilateral Ear: Auricle Normal Nose: Normal Inspection, Normal Mucosa Throat/Mouth: Normal Lips (tongue and oral mucosa slightly dry) Head: Atraumatic Neck: Supple, Non-Tender. No: Lymphadenopathy (L) Respiratory/Chest: Lungs Clear, No Accessory Muscle Use, Chest Non-Tender, Other (decreased breath sounds) Peripheral Pulses: 2+: Carotid (L), Carotid (R), Radial (L), Radial (R), Posterior Tibial (L), Posterior Tibial (R), Dorsalis Pedis (L), Dorsalis Pedis ( R) GI/Abdominal: Normal Bowel Sounds, Soft, Non-Tender Back Exam: Normal Inspection Extremities: Normal Inspection, Non-Tender, No Pedal Edema Neurological: Alert, Oriented, CN II-XII Intact, Normal Cognition, Normal Gait Psychiatric: Normal Affect, Normal Mood Skin Exam: Warm, Dry, Intact Lymphatic: No Adenopathy Course - Vital Signs Last Recorded V/S: Last Vital Signs Temp 97.1 F 07/17/16 16:46 Pulse 118 H 07/17/16 18:00 Resp 18 07/17/16 18:00 BP 99/59 L 07/17/16 18:00 Pulse Ox 99 07/17/16 18:00 - Orders/Labs/Meds Orders: Active Orders 24 hr Category Date Time Status EKG Documentation Completion [RC] ASDIRECTED Care 07/17/16 17:20 Active Peripheral IV Care [RC] . DIRECTED Care 07/17/16 17:23 Active Chest 2V [CR] Stat Exams 07/17/16 17:27 Taken Sodium Chloride 0.9% [Normal Saline] 500 ml Med 07/17/16 17:45 Active IV ASDIRECTED Sodium Chloride 0.9% [Saline Flush] Med 07/17/16 17:22 Active 10 ml FLUSH ASDIRECTED PRN Sodium Chloride 0.9% [Saline Flush] Med 07/17/16 17:25 Active 10 ml FLUSH ASDIRECTED PRN Convert IV to Saline Lock [OM.PC] Stat Oth 07/17/16 17:25 Ordered Peripheral IV Insertion Adult [OM.PC] Routine Ot 07/17/16 17:22 Ordered Medication Orders Sodium Chloride (Normal Saline) 500 mls @ 100 mls/hr IV ASDIRECTED YANA Last Admin: 07/17/16 18:02 Dose: 100 mls/hr Sodium Chloride (Saline Flush) 10 ml FLUSH ASDIRECTED PRN PRN Reason: Keep Vein Open Last Admin: 07/17/16 18:03 Dose: 10 ml Sodium Chloride (Saline Flush) 10 ml FLUSH ASDIRECTED PRN PRN Reason: Keep Vein Open Labs: Laboratory Tests 07/17/16 07/17/16 07/17/16 Range/Units 17:30 17:30 17:30 WBC 16.8 H (4.0-10.2) K/uL RBC 3.38 L (4.33-5.41) M/uL Hgb 10.4 L D (13.1-16.8) g/dL Hct 31.0 L (39.0-49.0) % MCV 91.7 D (84.0-98.0) fL MCH 30.8 (28.2-33.3) pg MCHC 33.5 (31.7-36.0) g/dL RDW 13.5 (11.2-14.1) % Plt Count 269 (150-350) K/uL Neut % (Auto) 87.2 H (45.0-80.0) % Lymph % (Auto) 6.6 L (10.0-50.0) % [place] % (Auto) 5.9 (2.0-14.0) % Eos % (Auto) 0.1 (0.0-5.0) % Baso % (Auto) 0.2 (0.0-2.0) % Neut # (Auto) 14.66 H (1.40-7.00) K/uL Lymph # (Auto) 1.10 (0.50-3.50) K/uL [place] # (Auto) 0.99 (0.00-1.00) K/uL Eos # (Auto) 0.01 (0.00-0.50) K/uL Baso # (Auto) 0.03 (0.00-0.20) K/uL D-Dimer, Quantitative < 100 (0-400) ng/mL Sodium 138 D (136-145) mmol/L Potassium 4.3 D (3.5-5.1) mmol/L Chloride 103 (98-107) mmol/L Carbon Dioxide 26.8 (21.0-32.0) mmol/L BUN 70 H D (7-18) mg/dL Creatinine 0.85 (0.51-1.17) mg/dL Est Cr Clr Drug Dosing 68.17 mL/min Estimated GFR (MDRD) > 60 mL/min Glucose 100 (74-106) mg/dL Calcium 8.1 L (8.5-10.1) mg/dL Total Bilirubin 1.2 H (0.2-1.0) mg/dL AST 17 (15-37) U/L ALT 28 (12-78) U/L Alkaline Phosphatase 47 (46-116) IU/L Troponin I 0.055 (0.000-0.056) ng/mL Total Protein 5.1 L (6.4-8.2) g/dL Albumin 2.7 L (3.4-5.0) g/dL Meds: Medications Generic Name Dose Route Start Last Admin Trade Name Freq PRN Reason Stop Dose Admin Sodium Chloride 500 mls @ 100 mls/hr 07/17/16 17:45 07/17/16 18:02 Normal Saline IV 100 mls/hr ASDIRECTED YANA Administration Sodium Chloride 10 ml 07/17/16 17:22 07/17/16 18:03 Saline Flush FLUSH 10 ml ASDIRECTED PRN Administration Keep Vein Open Sodium Chloride 10 ml 07/17/16 17:25 Saline Flush FLUSH ASDIRECTED PRN Keep Vein Open - Re-Assessments/Exams Free Text/Narrative Re-Assessment/Exam: 07/17/16 18:52 With IV saline ordered at 100 ml/ hour pulse is 115 with only 100 ML. He went to the bathroom and reported a large amount of black liquid. He was started on Plavix with recent hospitalization. He is comfortable at rest and with any activity becomes short of breath and thinks he can only walk 20 feet. Yesterday he says he could walk 500 feet. No chest pain. EKG showed pulse of 121 with fusion complex, Left axis deviation. Pulmonary disease pattern, inferior q waves with ST segments ok. CXR , 2 view, done. Potassium mildly elevated. Complex medical management and needs transportation to higher level of care. [facility]. Departure - Departure Time of Disposition: 19:40 Disposition: DC/Tfer to [facility] 02 Reason for Transfer *Q: Primary PCI Indicated (needs transfer) Condition: good Clinical Impression: COPD exacerbation, Sinus tachycardia GIT (gastrointestinal tract hemorrhage) Qualifiers: GI bleed type/associated pathology: melena Qualified Code(s): K92.1 - Melena Anemia Qualifiers: Anemia type: unspecified type Qualified Code(s): D64.9 - Anemia, unspecified Forms: ED Department Discharge, Interfacility Transfer EMTALA - My Orders Last 24 Hours: My Active Orders 07/17/16 17:20 EKG Documentation Completion [RC] ASDIRECTED 07/17/16 17:22 Sodium Chloride 0.9% [Saline Flush] 10 ml FLUSH ASDIRECTED PRN Peripheral IV Insertion Adult [OM.PC] Routine 07/17/16 17:23 Peripheral IV Care [RC] . DIRECTED 07/17/16 17:25 Sodium Chloride 0.9% [Saline Flush] 10 ml FLUSH ASDIRECTED PRN Convert IV to Saline Lock [OM.PC] Stat 07/17/16 17:27 Chest 2V [CR] Stat 07/17/16 17:45 Sodium Chloride 0.9% [Normal Saline] 500 ml IV ASDIRECTED - Assessment/Plan Last 24 Hours: My Active Orders 07/17/16 17:20 EKG Documentation Completion [RC] ASDIRECTED 07/17/16 17:22 Sodium Chloride 0.9% [Saline Flush] 10 ml FLUSH ASDIRECTED PRN Peripheral IV Insertion Adult [OM.PC] Routine 07/17/16 17:23 Peripheral IV Care [RC] . DIRECTED 07/17/16 17:25 Sodium Chloride 0.9% [Saline Flush] 10 ml FLUSH ASDIRECTED PRN Convert IV to Saline Lock [OM.PC] Stat 07/17/16 17:27 Chest 2V [CR] Stat 07/17/16 17:45 Sodium Chloride 0.9% [Normal Saline] 500 ml IV ASDIRECTED
[2016-07-17] MEDS ORDERED: Sodium Chloride 0.9% 10 ML Syringe FLUSH PRN ×2 (17:22→17:25)
[2016-07-17] MEDS ORDERED: Sodium Chloride 0.9% 500 ML IV SCH (17:45)
[2016-07-17 17:46] LABS: CHLORIDE,CL 103 mmol/L (98-107); SODIUM,NA 138 mmol/L (136-145)
[2016-07-17 20:31] VITALS: BP 115/63
== END 2016-07-17 19:40 ==
LOC: LL.ED 16:45
DX: R00.0 Tachycardia, unspecified (principal); J44.1 Chronic obstructive pulmonary disease with (acute) exacerbation; K92.1 Melena; D64.9 Anemia, unspecified; I10 Essential (primary) hypertension; M19.90 Unspecified osteoarthritis, unspecified site; F41.9 Anxiety disorder, unspecified; F32.9 Major depressive disorder, single episode, unspecified; Z98.890 Other specified postprocedural states; Z98.41 Cataract extraction status, right eye; Z98.42 Cataract extraction status, left eye; Z90.49 Acquired absence of other specified parts of digestive tract; Z87.891 Personal history of nicotine dependence; Z91.09 Other allergy status, other than to drugs and biological substances; Z88.8 Allergy status to other drugs, medicaments and biological substances; Z79.82 Long term (current) use of aspirin; Z79.899 Other long term (current) drug therapy
CPT/HCPCS: 36415; 71020; 80053; 84484; 85025; 85379; 93005; 96360; 96361; 99285; J7040; J7050

== ENCOUNTER 2016-09-29 20:12 | Inpatient (IN) | payer MEDICARE, BC ==
[2016-09-29] MEDS ORDERED: Ticagrelor 90 MG Tab PO ONE (20:24)
[2016-09-29] MEDS ORDERED: Aspirin 81 MG Tab.Chew CHEW ONE (20:24)
[2016-09-29] MEDS ORDERED: Metoprolol Tartrate 5 MG/5 ML SDV IVPUSH ONE (20:24)
[2016-09-29] MEDS ORDERED: Famotidine 20 MG/2 ML SDV IVPUSH ONE (20:24)
--- NOTE | 2016-09-29 20:24 | EDM.PDOC ---
ED HPI GENERAL MEDICAL PROBLEM - General Chief Complaint: Cardiovascular Problem Stated Complaint: elevated home BP Time Seen by Provider: 09/29/16 20:15 Source of Information: Reports: Patient, Family, Old Records - History of Present Illness INITIAL COMMENTS - FREE TEXT/NARRATIVE: The patient was brought to the emergency room via private automobile by his for evaluation of elevated blood pressures at home with blood pressure of 220/110 shortly prior to arrival with no noncompliance of his medications, including this evening medications. He had a blood pressure of 200/90 earlier this morning, however no history of headaches, visual changes, or neurological deficits. He does have some nonspecific sharp 5/10 mid thoracic, left scapular, and left lower anterior chest pain/pleuritic type symptoms with symptoms starting at 16:00 hours yesterday. He does believe he had a mild lifting injury prior to onset of symptoms, including lifting a 2.5 gallon container at home yesterday. The patient denies any other chest pain/pressure, heart flutter, dizziness, orthostasis, orthopnea, diaphoresis, paresthesias, recent decreased exercise tolerance, or any other anginal-type symptoms. No recent history of abdominal pain, heartburn, nausea, diarrhea, melena, gross hematochezia, or any food intolerance, including fatty foods, etc.. He has had a nonproductive cough during the last few days with otherwise stable COPD symptoms. Onset: Gradual Onset Date: 09/28/16 Onset Time: 16:00 Duration: Getting Worse, Intermittent Location: Reports: Chest, Back, Radiates to (As above). Denies: Head, Face, Neck, Pelvis, Upper Extremity, Left, Upper Extremity, Right, Lower Extremity, Left, Lower Extremity, Right Quality: Reports: Same as Previous Episode, Sharp Severity: Moderate Improves with: Reports: Rest Worsens with: Reports: Breathing, Movement Context: Reports: Other (As above) Associated Symptoms: Reports: Chest Pain, Cough. Denies: Confusion, cough w sputum, Diaphoresis, Fever/Chills, Headaches, Loss of Appetite, Nausea/Vomiting , Shortness of Breath, Syncope, Weakness Treatments SHEAR TENDER: Reports: Other (see below) (None) Middle Back Pain Score (Numeric/FACES): 5 - Related Data Allergies Allergy/AdvReac Type Severity Reaction Status Date / Time levonorgestrel Allergy Cannot Verified 09/29/16 20:59 Remember mold Allergy Shortness Uncoded 09/29/16 20:59 of Breath pollen Allergy Cannot Uncoded 09/29/16 20:59 Remember Home Meds: Home Meds Albuterol/Ipratropium [DuoNeb 3.0-0.5 MG/3 ML] 1 ampule INH QID 03/20/14 [ History] Multivitamin [Tab A Henry] 1 tab PO DAILY@1200 03/20/14 [History] Albuterol [IJD: Ventolin HFA] 2 puff INH QID PRN 07/02/16 [History] Budesonide [Pulmicort] 0.5 mg NEB BIDRT 07/02/16 [History] Aspirin [Halfprin] 81 mg PO BRK 07/17/16 [History] LORazepam 0.5 mg PO Q8H PRN 07/17/16 [History] Loratadine 10 mg PO BEDTIME 07/17/16 [History] Pantoprazole Sodium [Protonix] 40 mg PO DAILY 07/17/16 [History] Prednisone [IJD: Prednisone] 20 mg PO DAILY 07/17/16 [History] Psyllium Husk [Metamucil] 2 tsp PO DAILY 07/17/16 [History] Sodium Chloride 1 gm PO TID 07/17/16 [History] atorvaSTATin [Lipitor] 40 mg PO BEDTIME 07/17/16 [History] guaiFENesin [Mucus Relief] 600 mg PO BID 07/17/16 [History] Carvedilol 3.125 mg PO BID 09/29/16 [History] Past Medical History HEENT History: Reports: Allergic Rhinitis, Cataract, Hard of Hearing, Impaired Vision, Sinusitis, Other (See Below). Denies: Glaucoma, Macular Degeneration, Retinal Detachment Other HEENT History: Patient wears glasses, allergic rhinitis with chronic sinusitis, presbycusis bilaterally with no current hearing aid therapy, nasal septum deviation, intermittent tinnitus Cardiovascular History: Reports: CAD, Cardiomyopathy, High Cholesterol, Hypertension, [place], Pulmonary Hypertension, SOB on Exertion, Other (See Below). Denies: Afib, Aneurysm, Arrhythmia, Blood Clots/VTE/DVT, Bypass, Heart Failure, Heart Murmur, PTCA, PVD, Stents, Syncope Other Cardiovascular History: Possible [place] in June 2016 with no procedures performed, grade 2 diastolic dysfunction and left ventricular enlargement by echocardiogram on 07/07/16, borderline first-degree AV block on 07/02/16, Dyspnea secondary to COPD Respiratory History: Reports: Bronchitis, Recurrent, COPD, Intubation, Previous , Pneumonia, Recurrent, Pulmonary Fibrosis, Sleep Apnea, Other (See Below). Denies: Asthma, PE, Pneumothorax, TB Other Respiratory History: 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 , history of unknown type of right basilar pulmonary nodule 2.[address] scan of chest on 08/06/15 with additional left lower lung lesion and some right hilar mediastinal adenopathy, patient has been compliant with his CPAP Gastrointestinal History: Reports: Bowel Obstruction, Cholelithiasis, Chronic Constipation, Colon Polyp, Gastritis, GERD, GI Bleed, PUD, Other (See Below). Denies: Celiac Disease, Chronic Diarrhea, Hepatitis, Hiatal Hernia, Inflammatory Bowel Disease, Irritable Bowel Syndrome, Jaundice, Pancreatitis Other Gastrointestinal History: Upper GI bleed secondary to duodenal ulcer on 07/17/16, Small bowel obstruction on 09/16/12 after colonoscopy, small bowel ileus after appendicitis as below, tubular adenoma of the transverse colon on 09/15/12, Gilbert's syndrome, mild dysphagia Genitourinary History: Reports: BPH, Other (See Below). Denies: Acute Renal Failure, Chronic Renal Insuffiency, Dialysis, Renal Calculus, Retention, Urinary , STD, Urinary Incontinence, UTI, Recurrent Other Genitourinary History: BPH with history of PSA elevation with subsequent normalization, erectile dysfunction Musculoskeletal History: Reports: Arthritis, Back Pain, Chronic, Fracture, Neck Pain, Chronic, Osteoarthritis, Osteoporosis, Other (See Below). Denies: Amputation, Gout, RA, SLE Other Musculoskeletal History: Fracture of the left clavicle in 1997, previous vertebral body compression fractures, right Colles' wrist fracture on 03/20/14 Neurological History: Reports: None. Denies: Alzheimers Disease, Cerebral Aneurysms, Concussion, CVA, Headaches, Chronic, Head Trauma, Migraines, MS, Parkinson's, Seizure, TIA Psychiatric History: Reports: Anxiety, Depression. Denies: Abuse, Victim of, ADD, ADHD, Addiction, Alzheimers Disease, Dementia, Psych Hospitalization(s), PTSD, Suicide Attempt, Suicidal Ideation Endocrine/Metabolic History: Reports: Osteoporosis, Other (See Below). Denies: Diabetes, Type I, Diabetes, Type II, Hypothyroidism, IDDM Other Endocrine/Metabolic History: Hyponatremia, hyperkalemia Hematologic History: Reports: Anemia, Blood Transfusion(s), Other (See Below) Other Hematologic History: 5 units of packed red blood cells given in July 2016 secondary to upper GI bleed as above Immunologic History: Reports: None. Denies: AIDS, HIV, SLE Oncologic (Cancer) History: Reports: None. Denies: Basal Cell Carcinoma, Colon , Hodgkin's Lymphoma, Leukemia, Lung, Lymphoma, Non-Hodgkin's Lymphoma, Prostate , Squamous Cell Carcinoma Dermatologic History: Reports: None. Denies: Eczema, Psoriasis - Infectious Disease History Infectious Disease History: Reports: Chicken Pox, Measles, Mumps, Scarlet Fever. Denies: C-Difficile, Meningitis, Mononucleosis, MRSA, Rubella, Shingles , TB, VRE - Past Surgical History Head Surgeries/Procedures: Reports: None HEENT Surgical History: Reports: Adenoidectomy, Cataract Surgery, Oral Surgery, Tonsillectomy, Other (See Below). Denies: Eye Surgery, Laser Surgery, LASIK, Myringotomy w Tube(s), Naso-Sinus Surgery Other HEENT Surgeries/Procedures: Bilateral cataract surgery initially on the left side in about 1997 and on the right side in 2004, complete upper teeth extraction with multiple lower teeth extractions, tonsillectomy and adenoidectomy at age 3 Cardiovascular Surgical History: Reports: None. Denies: Coronary Artery Bypass , Percutaneous Transluminal Angioplasty, Varicose, Vascular Surgery Respiratory Surgical History: Reports: Lung Biopsies, Other (See Below). Denies : Thoracentesis Other Respiratory Surgeries/Procedures: Lung biopsy on 08/16/15ide unknown GI Surgical History: Reports: Appendectomy, Cholecystectomy, Colonoscopy, EGD, Hernia, Inguinal, Polypectomy, Other (See Below). Denies: ERCP, Esophageal Dilatation, Hernia, Abdominal, Hernia Repair/Other Other GI Surgeries/Procedures: EGD on 07/19/16 with epinephrine injection of duodenal ulcer, Laparoscopic cholecystectomy in about 1995, last colonoscopy on 04/16/08 with previous evaluation on 09/15/12, laparoscopic appendectomy on 10/13/14, left inguinal hernia repair with mesh placement on 03/28/15 Male Surgical History: Reports: None. Denies: Circumcision, TURP- Transurethral Resection of Prostate, Vasectomy Endocrine Surgical History: Reports: None. Denies: Thyroid Biopsy Neurological Surgical History: Reports: C-Spine, Laminectomy, Other (See Below) . Denies: Discectomy, Lumbar Spine, Sacral Spine, Spinal Fusion, Vertebroplasty Other Neurological Surgeries/Procedures: Laminectomy of C6 in about 1994 Musculoskeletal Surgical History: Reports: Arthroscopic Procedure, Shoulder Surgery, Other (See Below). Denies: Arthroscopic Knee, Carpal Tunnel, Ganglion Cyst, Joint Replacement, ORIF Other Musculoskeletal Surgeries/Procedures:: Bilateral arthroscopic shoulder repair with right-sided surgery in 1996 and left-sided surgery in 1997, left clavicular repair in 1997 Oncologic Surgical History: Reports: None Dermatological Surgical History: Reports: Skin Biopsy, Other (See Below) Other Dermatological Surgeries/Procedures: Excision of benign lesion from left axillary region on 07/29/16 - Past Imaging History Past Imaging History: Reports: Cardiac Echo (Last echocardiogram on 07/07/16 with ejection fraction of 6065 percent and noted left ventricular enlargement and grade 2 diastolic dysfunction, previous echocardiogram on 07/16/08), Carotid US (Left carotid artery Doppler studies on 04/26/11), CAT Scan (Last CTA of the chest on 07/06/16 with previous evaluations on 07/02/16 and 11/13/15, CT of the chest on 08/06/[address], [address] of the abdomen and pelvis with contrast on 10/26/14 with previous evaluation on 09/16/12, CT of the sinuses on 06/12/08), PFT (Last PFTs including diffusion studies and pulmonary exercise test on 05/18/16), Sleep Study (07/08/08), Stress Testing (Persantine Cardiolite stress test on 07/28/06 with ejection fraction of 60%), Swallow Study (11/21/15). Denies: Angiography Social & Family History - Family History HEENT: Reports: None. Denies: Glaucoma, Macular Degeneration, Retinal Detachment Cardiac: Reports: Arrhythmia, CAD, Heart Failure, High Cholesterol, Hypertension , [place], Other (See Below). Denies: Afib, AICD, Aneurysm, Blood Clots/VTE/DVT, Pulmonary Hypertension, PVD/COD, Syncope Other Cardiac Family History: Father with history of bradycardia and fatal [place] at age 82, maternal uncles x3 with fatal MIs in their 60s, maternal aunt with history of CABG and [place]. hypertension and hyperlipidemia in father Respiratory: Reports: None. Denies: Asthma, COPD, PE, Sleep Apnea GI: Reports: Cholelithiasis, GI bleed, Other (See Below). Denies: Celiac Disease, Chronic Constipation, Chronic Diarrhea, GERD, Hepatitis, Inflammatory Bowel Disease, Irritable Bowel Syndrome, PUD Other GI Family History: Mother with cholelithiasis, mother with lower GI bleed at 103 as below : Reports: None OBGYN: Reports: Dysfunctional uterine bleeding, Fibroids, Recurrent Spontaneous Other OBGYN Family History: Mother with recurrent SABs, daughter with history of uterine fibroids with subsequent breast cancer Musculoskeletal: Reports: None. Denies: Gout, RA, SLE Neurological: Reports: Alzheimers Disease, CVA, Dementia, Other (See Below). Denies: Cerebral Aneurysms, Migraines, MS, Parkinson's, Seizure, TIA Other Neurological Family History: Father with CVA at age 59, mother with fatal CVA at age 105 with history of Alzheimer's disease Psychiatric: Reports: None. Denies: Abuse, Victim of, ADD, ADHD, Anxiety, Depression, Eating Disorders, Psych Hospitalization(s), PTSD, Suicide Attempt Endocrine/Metabolic: Reports: Hypothyroidism, Other (See Below). Denies: Diabetes, Type I, Diabetes, type II, IDDM Other Endocrine/Metabolic Family History: mother with hypothyroidism Hematologic: Reports: Anemia, Other (See Below). Denies: SLE Other Hematologic Family History: Lower GI bleed with anemia and required blood transfusion in mother at 103 with no workup Immunologic: Reports: None. Denies: AIDS, HIV, SLE Dermatologic: Reports: None. Denies: Eczema, Psoriasis Oncologic: Reports: Breast, Other (See Below). Denies: Colon, Hodgkin's Lymphoma, Leukemia, Lymphoma, Non-Hodgkin's Lymphoma, Prostate, Skin Other Oncologic Family History: Daughter with fatal breast cancer at age 37, paternal grandmother with fatal breast cancer at age 67 but she also suffered from cervical cancer, daughter with breast cancer at age 41, brother with fatal unknown type of metastatic cancer at age 57 - Tobacco Use Smoking Status *Q: Former Smoker Tobacco Use Within Last Twelve Months: No Years of Tobacco use: 40 Packs/Tins Daily: 2.5 (Maximum use of 3 packs per day with additional pipe and cigar use) Used Tobacco, but Quit: Yes Month Tobacco Last Used: 10/09/1994 Smoking Cessation Information Provided To Patient: No Second Hand Smoke Exposure: No Second Hand Smoke Education Provided: No - Caffeine Use Caffeine Use: Reports: Coffee (1.5 cups per day), Tea (One glass per week). Denies: Energy Drinks, Soda - Alcohol Use Alcohol Use History: Yes Days Per Week of Alcohol Use: 5 (No previous DWIs, problems with alcohol abuse, etc.) Number of Drinks Per Day: 2 (Usually wine or mixed drinks) Total Drinks Per Week: 10 Alcohol Use in Last Twelve Months: Yes Alcohol Use Frequency: Socially - Recreational Drug Use Recreational Drug Use: No Drug Use in Last 12 Months: No Recreational Drug Type: Denies: Amphetamines (Speed), Cocaine, Heroin, Inhalants (Glues, Solvents, Aerosols), LSD (Acid), Marijuana/Hashish, Methamphetamine, Morphine - Living Situation & Occupation Living situation: Reports: (11/[birth year]/60, 3 children), with Family ( and son) 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 Denies: Fever, Chills, Malaise, Weakness , Fatigue, Night Sweats, Diaphoresis, Decreased Appetite, Weight Loss, Weight Gain HEENT: Reports: Glasses, Hearing Loss (No hearing aids). Denies: Dental Pain, Ear Pain, Eye Pain, Rhinitis, Sinus Problem, Throat Pain, Throat Swelling, Vertigo, Vision Change Respiratory: Reports: Shortness of Breath, Pleuritic Chest Pain, Cough. Denies : Wheezing, Sputum Cardiovascular: Reports: Chest Pain, Blood Pressure Problem, Dyspnea on Exertion. Denies: Claudication, Edema, Lightheadedness, Orthopnea, Palpitations , Syncope Endocrine: Reports: No Symptoms. Denies: Fatigue GI/Abdominal: Reports: No Symptoms. Denies: Abdominal Pain, Anorexia, Black Stool, Bloody Stool, Constipation, Diarrhea, Decreased Appetite, Difficulty Swallowing, Distension, Flatus, Hematemesis, Hematochezia, Melena, Nausea, Stool Incontinence, Vomiting : Reports: No Symptoms. Denies: Discharge, Dysuria, Flank Pain, Frequency, Hematuria, Incontinence, Pain, Urgency, Urinary Retention Musculoskeletal: Reports: Shoulder Pain, Back Pain. Denies: Neck Pain, Arm Pain , Hand Pain Skin: Reports: No Symptoms. Denies: Diaphoresis, Bruising, Wound Neurological: Reports: No Symptoms. Denies: Confusion, Dizziness, Numbness, Paresthesia, Syncope, Tingling, Weakness Psychiatric: Reports: No Symptoms. Denies: Agitation, Anxiety, Confusion, Depression, Hallucinations, Suicidal Ideation Hematologic/Lymphatic: Reports: No Symptoms Immunologic: Reports: No Symptoms ED EXAM, GENERAL - Physical Exam Exam: See Below Exam Limited By: No Limitations General Appearance: Alert, WD/WN, No Apparent Distress, Anxious (Mild) Eye Exam: Bilateral Eye: EOMI, Normal Inspection (No nystagmus), PERRL Ears: Normal External Exam, Normal Canal, Normal TMs, Hearing Loss (Mild bilateral presbycusis) Nose: Normal Inspection, Normal Mucosa, No Blood Throat/Mouth: Normal Lips, Normal Gums, Normal Oropharynx, Normal Voice, No Airway Compromise. No: Normal Teeth (Complete upper dentures with partial lowers), Dysphagia, Perioral Cyanosis Head: Atraumatic, Normocephalic. No: Facial Swelling, Facial Tenderness, Sinus Tenderness Neck: Supple, Non-Tender, Full Range of Motion, Carotid Bruit (Mild bilateral carotid bruits). No: Lymphadenopathy (L), Lymphadenopathy (R), Thyromegaly Respiratory/Chest: No Respiratory Distress, No Accessory Muscle Use, Chest Non- Tender, Rales (Mild bilateral basilar rales). No: Rhonchi, Wheezing, Pleural Rub, Retractions Cardiovascular: Normal Peripheral Pulses, Regular Rate, Rhythm, No Edema, No Gallop, No JVD, No Murmur, No Rub. No: Gallop/S3, Gallop/S4, Friction Rub Peripheral Pulses: 2+: Radial (L), Radial (R), Dorsalis Pedis (L), Dorsalis Pedis (R) GI/Abdominal: Normal Bowel Sounds, Soft, Non-Tender, No Organomegaly, No Distention, No Abnormal Bruit, No Mass, Pelvis Stable. No: Guarding (Male) Exam: Deferred Rectal (Males) Exam: Deferred Back Exam: Normal Inspection, Full Range of Motion. No: CVA Tenderness (L), CVA Tenderness (R), Muscle Spasm Extremities: Normal Inspection, Normal Range of Motion, Non-Tender, No Pedal Edema, Normal Capillary Refill. No: Kal's Sign Neurological: Alert, Oriented, CN II-XII Intact, Normal Cognition, Normal Gait, Normal Reflexes (Negative Babinski's), No Motor/Sensory Deficits Psychiatric: Anxious (Mild). No: Depressed Mood Skin Exam: Warm, Dry, Intact, Normal Color, No Rash. No: Diaphoretic, Ecchymosis, Petechiae, Wound/Incision Lymphatic: No Adenopathy EKG INTERPRETATION EKG Date: 09/29/16 Time: 20:39 Rhythm: NSR Rate (Beats/Min): 83 Graham: LAD-Left Graham Deviation (Extended left cardiac axis) P-Wave: Enlarged (Moderate diffuse biphasic P waves with extreme poor R-wave progression in the anterior leads) QRS: Normal (QRS interval of 0.08 seconds with T-wave inversion in leads V1 and aVL with resolution of previous with resolution of previous T-wave inversion in lead V2 and sinus tachycardia in the 120s on 07/17/16) ST-T: Other (As above) QT: Normal AZ/PQ Interval: 0.19 seconds with low voltage Comparison: Change From Previous EKG (As above) EKG Interpretation Comments: 1. Probable stable anterolateral wall cardiac ischemia with no acute ischemic changes 2. Left atrial enlargement Course - Vital Signs Last Recorded V/S: Last Vital Signs Temp 37.5 C 09/29/16 20:15 Pulse 82 09/29/16 21:20 Resp 14 09/29/16 21:20 BP 156/91 H 09/29/16 21:20 Pulse Ox 97 09/29/16 21:20 Vital Signs - 24 hr 09/29/16 09/29/16 09/29/16 20:15 20:25 20:30 Temperature [ 37.5 C Temporal] Pulse, Peripheral Pulse, 114 H 99 Peripheral [ Right Pulse Oximetry] Respiratory 17 15 Rate Blood Pressure Blood Pressure 214/109 H 184/99 H [Right Upper Arm] O2 Sat by Pulse 98 99 Oximetry O2 Sat by Pulse 98 Oximetry [ Nasal Cannula] 09/29/16 09/29/16 09/29/16 20:31 20:40 20:56 Temperature [ Temporal] Pulse, 100 Peripheral Pulse, 86 87 Peripheral [ Right Pulse Oximetry] Respiratory 13 14 Rate Blood Pressure 184/99 H Blood Pressure 174/99 H 172/110 H [Right Upper Arm] O2 Sat by Pulse 99 99 Oximetry O2 Sat by Pulse Oximetry [ Nasal Cannula] 09/29/16 09/29/16 09/29/16 20:58 21:12 21:20 Temperature [ Temporal] Pulse, Peripheral Pulse, 83 82 Peripheral [ Right Pulse Oximetry] Respiratory 15 14 Rate Blood Pressure 172/110 H Blood Pressure 149/91 H 156/91 H [Right Upper Arm] O2 Sat by Pulse 98 97 Oximetry O2 Sat by Pulse Oximetry [ Nasal Cannula] 09/29/16 09/29/16 21:42 21:50 Temperature [ Temporal] Pulse, Peripheral Pulse, 83 82 Peripheral [ Right Pulse Oximetry] Respiratory 14 19 Rate Blood Pressure Blood Pressure 147/91 H 137/85 [Right Upper Arm] O2 Sat by Pulse 97 98 Oximetry O2 Sat by Pulse Oximetry [ Nasal Cannula] - Orders/Labs/Meds Orders: Active Orders 24 hr Category Date Time Status Cardiac Monitoring [RC] . DIRECTED Care 09/29/16 20:25 Active EKG Documentation Completion [RC] ASDIRECTED Care 09/29/16 20:25 Active Oxygen Therapy, ED [RC] CONTINUOUS Care 09/29/16 20:25 Active Peripheral IV Care [RC] . DIRECTED Care 09/29/16 20:25 Active Pulse Oximetry [RC] CONTINUOUS Care 09/29/16 20:25 Active Up With Assistance [RC] PFP Care 09/29/16 20:25 Active Vital Signs [RC] PFP Care 09/29/16 20:25 Active Nothing per Oral Now Diet [DIET] Diet 09/29/16 Breakfast Active Chest 1V Frontal [CR] Stat Exams 09/29/16 20:25 Ordered Nitroglycerin [Nitrostat] Med 09/29/16 20:55 Stat 0.4 mg SL ONETIME STA Sodium Chloride 0.9% [Saline Flush] Med 09/29/16 20:24 Active 10 ml FLUSH ASDIRECTED PRN Obtain Past Medical Record [OM.PC] Urgent Oth 09/29/16 20:25 Active Peripheral IV Insertion Adult [OM.PC] Stat Oth 09/29/16 20:25 Ordered Resuscitation Status Stat Resus Stat 09/29/16 20:24 Ordered Medication Orders Nitroglycerin (Nitrostat) 0.4 mg SL ONETIME STA Stop: 09/30/16 20:56 Last Admin: 09/29/16 20:58 Dose: 0.4 mg Sodium Chloride (Saline Flush) 10 ml FLUSH ASDIRECTED PRN PRN Reason: Keep Vein Open Last Admin: 09/29/16 20:32 Dose: 10 ml Labs: Laboratory Tests 09/29/16 09/29/16 09/29/16 Range/Units 20:30 20:30 20:30 WBC 6.1 (4.0-10.2) K/uL RBC 4.93 (4.33-5.41) M/uL Hgb 15.2 D (13.1-16.8) g/dL Hct 44.8 (39.0-49.0) % MCV 90.9 (84.0-98.0) fL MCH 30.8 (28.2-33.3) pg MCHC 33.9 (31.7-36.0) g/dL RDW 13.9 (11.2-14.1) % Plt Count 158 D (150-350) K/uL Neut % (Auto) 80.3 H (45.0-80.0) % Lymph % (Auto) 11.5 (10.0-50.0) % Bent % (Auto) 7.2 (2.0-14.0) % Eos % (Auto) 0.7 (0.0-5.0) % Baso % (Auto) 0.3 (0.0-2.0) % Neut # (Auto) 4.87 (1.40-7.00) K/uL Lymph # (Auto) 0.70 (0.50-3.50) K/uL Bent # (Auto) 0.44 (0.00-1.00) K/uL Eos # (Auto) 0.04 (0.00-0.50) K/uL Baso # (Auto) 0.02 (0.00-0.20) K/uL PT 10.1 (9.8-11.7) SEC INR 1.0 APTT 24.0 (23.5-30.0) SEC D-Dimer, Quantitative 108 (0-400) ng/mL Sodium (136-145) mmol/L Potassium (3.5-5.1) mmol/L Chloride (98-107) mmol/L Carbon Dioxide (21.0-32.0) mmol/L BUN (7-18) mg/dL Creatinine (0.51-1.17) mg/dL Est Cr Clr Drug Dosing mL/min Estimated GFR (MDRD) mL/min Glucose (74-106) mg/dL Lactic Acid (0.4-2.0) mmol/L Uric Acid (2.6-7.2) mg/dL Calcium (8.5-10.1) mg/dL Magnesium (1.8-2.4) mg/dL Total Bilirubin (0.2-1.0) mg/dL AST (15-37) U/L ALT (12-78) U/L Alkaline Phosphatase (46-116) IU/L Creatine Kinase (26-308) U/L Creatine Kinase Index (0.0-2.5) % CK-MB (CK-2) (0.00-3.60) ng/mL Troponin I (0.000-0.056) ng/mL Foc-L-Iqwcfqbkzni Pept (0-125) pg/mL Total Protein (6.4-8.2) g/dL Albumin (3.4-5.0) g/dL TSH, Ultra Sensitive (0.358-3.740) mIU/mL 09/29/16 09/29/16 Range/Units 20:30 20:30 WBC (4.0-10.2) K/uL RBC (4.33-5.41) M/uL Hgb (13.1-16.8) g/dL Hct (39.0-49.0) % MCV (84.0-98.0) fL MCH (28.2-33.3) pg MCHC (31.7-36.0) g/dL RDW (11.2-14.1) % Plt Count (150-350) K/uL Neut % (Auto) (45.0-80.0) % Lymph % (Auto) (10.0-50.0) % Bent % (Auto) (2.0-14.0) % Eos % (Auto) (0.0-5.0) % Baso % (Auto) (0.0-2.0) % Neut # (Auto) (1.40-7.00) K/uL Lymph # (Auto) (0.50-3.50) K/uL Bent # (Auto) (0.00-1.00) K/uL Eos # (Auto) (0.00-0.50) K/uL Baso # (Auto) (0.00-0.20) K/uL PT (9.8-11.7) SEC INR APTT (23.5-30.0) SEC D-Dimer, Quantitative (0-400) ng/mL Sodium 142 (136-145) mmol/L Potassium 3.9 (3.5-5.1) mmol/L Chloride 106 (98-107) mmol/L Carbon Dioxide 25.8 (21.0-32.0) mmol/L BUN 15 D (7-18) mg/dL Creatinine 1.01 (0.51-1.17) mg/dL Est Cr Clr Drug Dosing 60.91 mL/min Estimated GFR (MDRD) > 60 mL/min Glucose 148 H (74-106) mg/dL Lactic Acid 1.3 (0.4-2.0) mmol/L Uric Acid 5.5 (2.6-7.2) mg/dL Calcium 8.5 (8.5-10.1) mg/dL Magnesium 1.8 (1.8-2.4) mg/dL Total Bilirubin 1.1 H (0.2-1.0) mg/dL AST 24 (15-37) U/L ALT 34 (12-78) U/L Alkaline Phosphatase 84 (46-116) IU/L Creatine Kinase 67 (26-308) U/L Creatine Kinase Index 3.0 H (0.0-2.5) % CK-MB (CK-2) 2.00 (0.00-3.60) ng/mL Troponin I 0.006 (0.000-0.056) ng/mL [id number]-N-Eqqtprecqok Pept 147 H (0-125) pg/mL Total Protein 7.0 (6.4-8.2) g/dL Albumin 3.8 (3.4-5.0) g/dL TSH, Ultra Sensitive 1.929 (0.358-3.740) mIU/mL Meds: Medications Generic Name Dose Route Start Last Admin Trade Name Freq PRN Reason Stop Dose Admin Nitroglycerin 0.4 mg 09/29/16 20:55 09/29/16 20:58 Nitrostat SL 09/30/16 20:56 0.4 mg ONETIME STA Administration Sodium Chloride 10 ml 09/29/16 20:24 09/29/16 20:32 Saline Flush FLUSH 10 ml ASDIRECTED PRN Administration Keep Vein Open Discontinued Medications Generic Name Dose Route Start Last Admin Trade Name Kylah PRN Reason Stop Dose Admin Aspirin 324 mg 09/29/16 20:24 09/29/16 20:31 Aspirin CHEW 09/29/16 20:25 324 mg ONETIME ONE Administration Famotidine 40 mg 09/29/16 20:24 09/29/16 20:31 Pepcid IVPUSH 09/29/16 20:25 40 mg ONETIME ONE Administration Metoprolol Tartrate 5 mg 09/29/16 20:24 09/29/16 20:31 Lopressor IVPUSH 09/29/16 20:25 5 mg ONETIME ONE Administration Ticagrelor 180 mg 09/29/16 20:24 09/29/16 20:31 Brilinta PO 09/29/16 20:25 180 mg ONETIME ONE Administration - Radiology Interpretation Free Text/Narrative:: classroom monitor shows normal sinus rhythm with initial mild sinus tachycardia in the 100s with improvement to the 80s after beta [place] therapy. No ectopy or arrhythmia Chest x-ray, portable, shows evidence of severe COPD with moderate prominence of the proximal aortic arch, however no pulmonary infiltrates, cardiomegaly pneumothorax, etc. Probable pulmonary hypertension and/or mild centralized CHF Departure - Departure Time of Disposition: 22:00 Disposition: Admitted As Inpatient 65 Condition: Good Clinical Impression: COPD, Severe chronic obstructive pulmonary disease, Mixed anxiety depressive disorder, Osteoarthritis, Peptic reflux disease, Hypertension, CHF (congestive heart failure), Hyponatremia, Gilbert syndrome Referrals: Troy Cates PA [Primary Care Provider] - Forms: ED Department Discharge Care Plan Goals: See plan - Problem List & Annotations (1) Hypertension SNOMED Code(s): 04696638 Code(s): I10 - ESSENTIAL (PRIMARY) HYPERTENSION Status: Acute Priority: High Current Visit: Yes Onset Date: 09/29/16 Annotation/Comment:: Borderline hypertensive crisis today with overall refractory response to IV Lopressor, although significantly improved with sublingual nitroglycerin. Patient will be started on Imdur secondary to his previous cardiac history and recent uncontrolled blood pressure as above. No neurological deficits. Continue medication adjustment during hospitalization Qualifiers: Hypertension type: essential hypertension Qualified Code(s): I10 - Essential (primary) hypertension (2) Coronary artery disease SNOMED Code(s): 41354550 Code(s): I25.10 - ATHSCL HEART DISEASE OF [place] CORONARY ARTERY W/O ANG PCTRS Status: Acute Priority: High Current Visit: Yes Annotation/Comment :: Possible unstable angina with atypical chest pain, although pleuritic component as below. Chest pain protocol initiated on patient's arrival to the emergency room. Note artifactually elevated CK index. No significant EKG changes with evidence of previous anterolateral cardiac ischemia and recent [place] in June 2016 with no procedures performed. Cardiology consultation depending on his clinical course. EKG and cardiac enzymes to be repeated in the a.m. with initiation of Imdur as above Qualifiers: Coronary Disease-Associated Artery/Lesion type: [place] artery [place] vs. transplanted heart: [place] heart Associated angina: with unstable angina Qualified Code(s): I25.110 - Atherosclerotic heart disease of [place] coronary artery with unstable angina pectoris (3) CHF (congestive heart failure) SNOMED Code(s): 66858489 Code(s): I50.9 - HEART FAILURE, UNSPECIFIED Status: Acute Priority: High Current Visit: Yes Onset Date: 09/29/16 Annotation/Comment:: Mild BNP elevation with no clinical evidence of significant CHF, including by chest x- ray. Note recent echocardiogram on 07/07/16 with grade 2 diastolic dysfunction. Consider IV Lasix therapy. Initiate Lotensin therapy for now, including on admission. Qualifiers: Congestive heart failure type: diastolic Congestive heart failure chronicity: acute on chronic Qualified Code(s): I50.33 - Acute on chronic diastolic (congestive) heart failure (4) COPD, Severe chronic obstructive pulmonary disease SNOMED Code(s): 688843712 Code(s): J44.9 - CHRONIC OBSTRUCTIVE PULMONARY DISEASE, UNSPECIFIED Status : Acute Priority: Medium Current Visit: Yes Annotation/Comment:: Mild low- grade fever but no clinical evidence of significant pneumonia, including by physical exam and chest x-ray. Consider blood cultures, although patient does not have leukocytosis, with sputum specimen to be collected ORESTES for culture and sensitivity. IV Levaquin to be initiated on admission. Baseline Severe disease requiring chronic oxygen and steroid oral supplementation with secondary limited exercise tolerance. Possible pleuritic type symptoms versus atypical chest pain. Note history of pulmonary hypertension, etc., however not evident in last echocardiogram. Continue aggressive nebulizer therapy. Pulmonary consultation depending on his clinical course (5) Mixed anxiety depressive disorder SNOMED Code(s): 820186774 Code(s): F41.8 - OTHER SPECIFIED ANXIETY DISORDERS Status: Chronic Priority: Medium Current Visit: Yes Annotation/Comment:: Somewhat progressive during the last couple of months secondary to his chronic illnesses as above. Continue close followup by his regular provider (6) Osteoarthritis SNOMED Code(s): 812174295 Code(s): M19.90 - UNSPECIFIED OSTEOARTHRITIS, UNSPECIFIED SITE Status: Chronic Priority: Medium Current Visit: Yes Annotation/Comment:: Currently under good control with low-dose ibuprofen (7) Peptic reflux disease SNOMED Code(s): 04262997 Code(s): K21.9 - GASTRO-ESOPHAGEAL REFLUX DISEASE WITHOUT ESOPHAGITIS Status: Chronic Priority: Medium Current Visit: Yes Annotation/Comment:: Note recent history of upper GI bleed on 07/17/16 requiring epinephrine injection of duodenal ulcer and 5 units of blood. No significant abdominal discomfort or evidence of acute GI bleed at this time. High-dose IV Pepcid given on arrival to the emergency room (8) Gilbert syndrome SNOMED Code(s): 33384365 Code(s): E80.4 - GILBERT SYNDROME Status: Chronic Priority: Medium Current Visit: Yes Annotation/Comment:: Mild, nonsymptomatic (9) Hyponatremia SNOMED Code(s): 77643404 Code(s): E87.1 - HYPO-OSMOLALITY AND HYPONATREMIA Status: Chronic Priority: Medium Current Visit: Yes Annotation/Comment:: History of chronic hyponatremia with current sodium chloride supplementation. Observe closely secondary to his history of CHF as above - Problem List Review Problem List Initiated/Reviewed/Updated: Yes - My Orders Last 24 Hours: My Active Orders 09/29/16 20:24 Sodium Chloride 0.9% [Saline Flush] 10 ml FLUSH ASDIRECTED PRN Resuscitation Status Stat 09/29/16 20:25 Cardiac Monitoring [RC] . DIRECTED EKG Documentation Completion [RC] ASDIRECTED Oxygen Therapy, ED [RC] CONTINUOUS Peripheral IV Care [RC] . DIRECTED Pulse Oximetry [RC] CONTINUOUS Up With Assistance [RC] PFP Vital Signs [RC] PFP Chest 1V Frontal [CR] Stat Obtain Past Medical Record [OM.PC] Urgent Peripheral IV Insertion Adult [OM.PC] Stat 09/29/16 20:55 Nitroglycerin [Nitrostat] 0.4 mg SL ONETIME STA 09/29/16 Breakfast Nothing per Oral Now Diet [DIET] - Assessment/Plan Admission H&P: Please use this note as an admission H&P Last 24 Hours: My Active Orders 09/29/16 20:24 Sodium Chloride 0.9% [Saline Flush] 10 ml FLUSH ASDIRECTED PRN Resuscitation Status Stat 09/29/16 20:25 Cardiac Monitoring [RC] . DIRECTED EKG Documentation Completion [RC] ASDIRECTED Oxygen Therapy, ED [RC] CONTINUOUS Peripheral IV Care [RC] . DIRECTED Pulse Oximetry [RC] CONTINUOUS Up With Assistance [RC] PFP Vital Signs [RC] PFP Chest 1V Frontal [CR] Stat Obtain Past Medical Record [OM.PC] Urgent Peripheral IV Insertion Adult [OM.PC] Stat 09/29/16 20:55 Nitroglycerin [Nitrostat] 0.4 mg SL ONETIME STA 09/29/16 Breakfast Nothing per Oral Now Diet [DIET] Assessment:: As above Plan: As above. Extensive precautions were given to the patient and his , who are in agreement with the treatment plan. Mckenzie carey physician assumes care in the a.m. The patient will require about 3-4 days of inpatient/acute care secondary to multiple health problems as above.
[2016-09-29] MEDS: Sodium Chloride 0.9% 10 ML Syringe FLUSH PRN (20:32)
[2016-09-29] MEDS ORDERED: Nitroglycerin 0.4 MG Tab.SL SL STA (20:55)
[2016-09-29 21:03] LABS: CHLORIDE,CL 106 mmol/L (98-107); SODIUM,NA 142 mmol/L (136-145)
[2016-09-29] MEDS ORDERED: Albuterol 0.083% 2.5 MG/3 ML Neb Soln INH PRN (22:28)
[2016-09-29] MEDS ORDERED: Albuterol/Ipratropium 3.0-0.5 MG/3 ML Neb Soln NEB PRN (22:28)
[2016-09-29] MEDS ORDERED: Aspirin 81 MG Tab.EC PO SCH (22:30)
[2016-09-29] MEDS: Doxycycline 100 MG Cap PO SCH (22:45)
[2016-09-29] MEDS: Levofloxacin/Dextrose 5%-Water 500 MG in Premix Bag 1 BAG IV SCH (22:46)
[2016-09-29] MEDS: Isosorbide Mononitrate 30 MG Tab.ER PO SCH (22:46)
[2016-09-29] MEDS: Acetaminophen 325 MG Tab PO PRN (23:22)
[2016-09-29] MEDS ORDERED: Loratadine 10 MG Tab PO ONE (23:30)
[2016-09-29] MEDS ORDERED: LORazepam 0.5 MG Tab PO ONE (23:30)
[2016-09-30] MEDS: Albuterol/Ipratropium 3.0-0.5 MG/3 ML Neb Soln NEB SCH ×4 (02:10→19:43)
[2016-09-30 07:41] LABS: CHLORIDE,CL 106 mmol/L (98-107); SODIUM,NA 141 mmol/L (136-145)
[2016-09-30] MEDS: guaiFENesin 600 MG Tab.ER PO SCH ×2 (09:14→17:50)
[2016-09-30] MEDS: Aspirin 81 MG Tab.EC PO SCH (09:15)
[2016-09-30] MEDS: Lisinopril 10 MG Tab PO SCH (09:17)
[2016-09-30] MEDS: Sodium Chloride 1 GM Tab PO SCH ×3 (09:17→17:49)
[2016-09-30] MEDS: predniSONE 5 MG Tab PO SCH (09:18)
[2016-09-30] MEDS: Carvedilol 3.125 MG Tab PO SCH ×2 (09:18→17:48)
[2016-09-30] MEDS: LORazepam 0.5 MG Tab PO SCH ×2 (09:20→17:51)
[2016-09-30] MEDS: Doxycycline 100 MG Cap PO SCH ×2 (09:21→19:43)
[2016-09-30] MEDS: Psyllium Husk Powder Sugar Free 5.85 GM Packet PO SCH (09:22)
[2016-09-30] MEDS: Budesonide 0.5 MG/2 ML Neb Susp NEB SCH ×2 (09:26→19:43)
[2016-09-30] MEDS ORDERED: traMADol 50 MG Tab PO PRN (15:51)
--- NOTE | 2016-09-30 15:57 | PCM.PN ---
- General Info Date of Service: 09/30/16 Functional Status: Reports: Tolerating Diet, Ambulating, Urinating, Other ( Continues to have pain left chest, originates below scapular and wraps around to front, triggered by movement. ). Denies: New Symptoms - Review of Systems General: Reports: No Symptoms HEENT: Reports: No Symptoms Pulmonary: Reports: Shortness of Breath (chronic, no acute worsening), Cough ( denies any acute changes). Denies: Pleuritic Chest Pain, Sputum, Hemoptysis, Wheezing Cardiovascular: Reports: Chest Pain (See above), Dyspnea on Exertion (Chronic). Denies: Palpitations, Lightheadedness Gastrointestinal: Reports: No Symptoms Genitourinary: Reports: No Symptoms Musculoskeletal: Reports: Back Pain (See above, on left) Skin: Reports: No Symptoms Neurological: Reports: No Symptoms Psychiatric: Reports: No Symptoms - Patient Data Vitals - Most Recent: Last Vital Signs Temp 36.1 C 09/30/16 14:00 Pulse 80 09/30/16 14:00 Resp 17 09/30/16 14:00 BP 104/64 09/30/16 14:00 Pulse Ox 93 L 09/30/16 14:00 Weight - Most Recent: 72.03 kg I&O - Last 24 Hours: Intake & Output 09/30/16 09/30/16 09/30/16 06:59 14:59 22:59 Intake Total 360 300 Output Total 700 400 Balance -700 360 -100 Lab Results Last 24 Hours: Laboratory Results - last 24 hr 09/30/16 09/30/16 09/30/16 Range/Units 07:00 07:00 07:00 WBC 6.8 (4.0-10.2) K/uL RBC 4.45 (4.33-5.41) M/uL Hgb 13.6 D (13.1-16.8) g/dL Hct 40.6 (39.0-49.0) % MCV 91.2 (84.0-98.0) fL MCH 30.6 (28.2-33.3) pg MCHC 33.5 (31.7-36.0) g/dL RDW 13.6 (11.2-14.1) % Plt Count 142 L (150-350) K/uL Neut % (Auto) 71.0 (45.0-80.0) % Lymph % (Auto) 16.6 (10.0-50.0) % [place] % (Auto) 10.1 (2.0-14.0) % Eos % (Auto) 1.9 (0.0-5.0) % Baso % (Auto) 0.4 (0.0-2.0) % Neut # (Auto) 4.80 (1.40-7.00) K/uL Lymph # (Auto) 1.12 (0.50-3.50) K/uL [place] # (Auto) 0.68 (0.00-1.00) K/uL Eos # (Auto) 0.13 (0.00-0.50) K/uL Baso # (Auto) 0.03 (0.00-0.20) K/uL Sodium 141 (136-145) mmol/L Potassium 3.5 (3.5-5.1) mmol/L Chloride 106 (98-107) mmol/L Carbon Dioxide 28.9 (21.0-32.0) mmol/L BUN 15 (7-18) mg/dL Creatinine 1.10 (0.51-1.17) mg/dL Est Cr Clr Drug Dosing 56.68 mL/min Estimated GFR (MDRD) > 60 mL/min Glucose 100 (74-106) mg/dL Hemoglobin A1c 5.3 (4.3-5.7) % Calcium 8.3 L (8.5-10.1) mg/dL Total Bilirubin 1.4 H (0.2-1.0) mg/dL AST 20 (15-37) U/L ALT 27 (12-78) U/L Alkaline Phosphatase 68 (46-116) IU/L Creatine Kinase 49 (26-308) U/L Creatine Kinase Index 2.4 (0.0-2.5) % CK-MB (CK-2) 1.20 (0.00-3.60) ng/mL Troponin I 0.009 (0.000-0.056) ng/mL [id number] Pept 186 H (0-125) pg/mL Total Protein 5.9 L (6.4-8.2) g/dL Albumin 3.1 L (3.4-5.0) g/dL Triglycerides 67 (30-150) mg/dL Cholesterol 117 (100-200) mg/dL LDL Cholesterol, Calc 24 (0-100) mg/dL HDL Cholesterol 80 H (40-60) mg/dL Dung Results Last 24 Hours: Microbiology 09/29/16 22:52 Stool Occult Blood (DUNG) - Final Stool / Feces Med Orders - Current: Current Medications Acetaminophen (Tylenol) 650 mg PO Q4H PRN PRN Reason: Pain Last Admin: 09/29/16 23:22 Dose: 650 mg Albuterol (Proventil Neb Soln) 2.5 mg INH Q2H PRN PRN Reason: SHORTNESS OF BREATH Albuterol/Ipratropium (Duoneb 3.0-0.5 Mg/3 Ml) 3 ml NEB Q4HRRT PRN PRN Reason: Dyspnea Last Admin: 09/29/16 22:46 Dose: 3 ml Albuterol/Ipratropium (Duoneb 3.0-0.5 Mg/3 Ml) 3 ml NEB Q6HRRT [facility] Last Admin: 09/30/16 14:36 Dose: 3 ml Aspirin (Halfprin) 81 mg PO BRK [facility] Last Admin: 09/30/16 09:15 Dose: 81 mg Atorvastatin Calcium (Lipitor) 40 mg PO BEDTIME [facility] Budesonide (Pulmicort) 0.5 mg NEB BIDRT [facility] Last Admin: 09/30/16 09:26 Dose: 0.5 mg Carvedilol (Coreg) 3.125 mg PO BID [facility] Last Admin: 09/30/16 09:18 Dose: 3.125 mg Doxycycline Hyclate (Vibramycin) 100 mg PO Q12HR [facility] Last Admin: 09/30/16 09:21 Dose: 100 mg Famotidine (Pepcid) 20 mg IVPUSH BID [facility] Guaifenesin (Mucinex) 600 mg PO BID [facility] Last Admin: 09/30/16 09:14 Dose: 600 mg Levofloxacin/Dextrose 500 mg/ (Premix) 100 mls @ 100 mls/hr IV Q24H [facility] Last Admin: 09/29/16 22:46 Dose: 100 mls/hr Isosorbide Mononitrate (Imdur) 30 mg PO QPM [facility] Last Admin: 09/29/16 22:46 Dose: 30 mg Lisinopril (Prinivil) 10 mg PO DAILY [facility] Last Admin: 09/30/16 09:17 Dose: 10 mg Loratadine (Claritin) 10 mg PO BEDTIME [facility] Lorazepam (Ativan) 0.5 mg PO BID [facility] Last Admin: 09/30/16 09:20 Dose: 0.5 mg Nitroglycerin (Nitrostat) 0.4 mg SL ONETIME STA Stop: 09/30/16 20:56 Last Admin: 09/29/16 20:58 Dose: 0.4 mg Prednisone (Prednisone) 10 mg PO DAILY [facility] Last Admin: 09/30/16 09:18 Dose: 10 mg Prednisone (Prednisone) 40 mg PO ONETIME ONE Stop: 10/01/16 15:51 Prednisone (Prednisone) 40 mg PO ONETIME ONE Stop: 10/01/16 08:01 Psyllium Husk (Metamucil Sugar Free) 2 pkt PO DAILY [facility] Last Admin: 09/30/16 09:22 Dose: 2 pkt Sodium Chloride (Saline Flush) 10 ml FLUSH ASDIRECTED PRN PRN Reason: Keep Vein Open Last Admin: 09/29/16 20:32 Dose: 10 ml Sodium Chloride (Sodium Chloride) 1 gm PO TID [facility] Last Admin: 09/30/16 12:05 Dose: 1 gm Sodium Chloride (Saline Flush) 10 ml FLUSH Q12HR PRN PRN Reason: Keep Vein Open Tramadol HCl (Ultram) 50 mg PO Q6H PRN PRN Reason: Pain Discontinued Medications Aspirin (Aspirin) 324 mg CHEW ONETIME ONE Stop: 09/29/16 20:25 Last Admin: 09/29/16 20:31 Dose: 324 mg Aspirin (Halfprin) 81 mg PO BRK [facility] Last Admin: 09/29/16 23:35 Dose: Not Given Atorvastatin Calcium (Lipitor) 40 mg PO BEDTIME [facility] Famotidine (Pepcid) 40 mg IVPUSH ONETIME ONE Stop: 09/29/16 20:25 Last Admin: 09/29/16 20:31 Dose: 40 mg Loratadine (Claritin) 10 mg PO ONETIME ONE Stop: 09/29/16 23:31 Last Admin: 09/29/16 23:22 Dose: 10 mg Lorazepam (Ativan) 0.5 mg PO ONETIME ONE Stop: 09/29/16 23:31 Last Admin: 09/29/16 23:23 Dose: 0.5 mg Metoprolol Tartrate (Lopressor) 5 mg IVPUSH ONETIME ONE Stop: 09/29/16 20:25 Last Admin: 09/29/16 20:31 Dose: 5 mg Ticagrelor (Brilinta) 180 mg PO ONETIME ONE Stop: 09/29/16 20:25 Last Admin: 09/29/16 20:31 Dose: 180 mg - Exam Quality Assessment: Supplemental Oxygen General: Alert, Oriented, Cooperative, No Acute Distress HEENT: Pupils Equal, Pupils Reactive, EOMI, Mucous Membr. Moist/[place] Neck: Supple Lungs: Clear to Auscultation, Normal Respiratory Effort, Decreased Breath Sounds (throughout). No: Crackles, Rales, Rhonchi, Rub, Stridor, Wheezing Cardiovascular: Regular Rate, Regular Rhythm GI/Abdominal Exam: Normal Bowel Sounds, Soft, Non-Tender, No Distention (Male) Exam: Deferred Back Exam: Other (mild tenderness with palpation just inferior to lower border left scapula. Reproduces patient complaint). No: CVA Tenderness (L), CVA Tenderness (R) Extremities: Non-Tender, Normal Capillary Refill Peripheral Pulses: 2+: Radial (L), Radial (R) Skin: Warm, Dry, Intact Neurological: No New Focal Deficit Psy/Mental Status: Alert, Normal Affect, Normal Mood EKG INTERPRETATION EKG Date: 09/30/16 Time: 07:21 Rhythm: NSR Rate (Beats/Min): 78 [place]: LAD-Left [place] Deviation P-Wave: Present QRS: Other (low voltage) ST-T: Normal QT: Normal Comparison: Other: (No significant change from yesterday) - Problem List & Annotations (1) CHF (congestive heart failure) SNOMED Code(s): 91916112 Code(s): I50.9 - HEART FAILURE, UNSPECIFIED Status: Acute Priority: High Current Visit: Yes Onset Date: 09/29/16 Qualifiers: Congestive heart failure type: diastolic Congestive heart failure chronicity: acute on chronic Qualified Code(s): I50.33 - Acute on chronic diastolic (congestive) heart failure Annotation/Comment:: Mild BNP elevation with no clinical evidence of significant CHF, including by chest x-ray. Note recent echocardiogram on with grade 2 diastolic dysfunction. Consider IV Lasix therapy. Initiate Lotensin therapy for now, including on admission. (2) COPD, Severe chronic obstructive pulmonary disease SNOMED Code(s): 552661133 Code(s): J44.9 - CHRONIC OBSTRUCTIVE PULMONARY DISEASE, UNSPECIFIED Status : Acute Priority: Medium Current Visit: Yes Annotation/Comment:: Mild low- grade fever but no clinical evidence of significant pneumonia, including by physical exam and chest x-ray. Consider blood cultures, although patient does not have leukocytosis, with sputum specimen to be collected ORESTES for culture and sensitivity. IV Levaquin to be initiated on admission. Baseline Severe disease requiring chronic oxygen and steroid oral supplementation with secondary limited exercise tolerance. Possible pleuritic type symptoms versus atypical chest pain. Note history of pulmonary hypertension, etc., however not evident in last echocardiogram. Continue aggressive nebulizer therapy. Pulmonary consultation depending on his clinical course (3) Coronary artery disease SNOMED Code(s): 35779462 Code(s): I25.10 - ATHSCL HEART DISEASE OF [place] CORONARY ARTERY W/O ANG PCTRS Status: Acute Priority: High Current Visit: Yes Qualifiers: Coronary Disease-Associated Artery/Lesion type: [place] artery [place] vs. transplanted heart: [place] heart Associated angina: with unstable angina Qualified Code(s): I25.110 - Atherosclerotic heart disease of [place] coronary artery with unstable angina pectoris Annotation/Comment:: Possible unstable angina with atypical chest pain, although pleuritic component as below. Chest pain protocol initiated on patient' s arrival to the emergency room. Note artifactually elevated CK index. No significant EKG changes with evidence of previous anterolateral cardiac ischemia and recent [place] in June 2016 with no procedures performed. Cardiology consultation depending on his clinical course. EKG and cardiac enzymes to be repeated in the a.m. with initiation of Imdur as above (4) Hypertension SNOMED Code(s): 82540732 Code(s): I10 - ESSENTIAL (PRIMARY) HYPERTENSION Status: Acute Priority: High Current Visit: Yes Onset Date: 09/29/16 Qualifiers: Hypertension type: essential hypertension Qualified Code(s): I10 - Essential (primary) hypertension Annotation/Comment:: Borderline hypertensive crisis today with overall refractory response to IV Lopressor, although significantly improved with sublingual nitroglycerin. Patient will be started on Imdur secondary to his previous cardiac history and recent uncontrolled blood pressure as above. No neurological deficits. Continue medication adjustment during hospitalization (5) Gilbert syndrome SNOMED Code(s): 67585956 Code(s): E80.4 - GILBERT SYNDROME Status: Chronic Priority: Medium Current Visit: Yes Annotation/Comment:: Mild, nonsymptomatic (6) Hyponatremia SNOMED Code(s): 53006036 Code(s): E87.1 - HYPO-OSMOLALITY AND HYPONATREMIA Status: Chronic Priority: Medium Current Visit: Yes Annotation/Comment:: History of chronic hyponatremia with current sodium chloride supplementation. Observe closely secondary to his history of CHF as above (7) Mixed anxiety depressive disorder SNOMED Code(s): 079796904 Code(s): F41.8 - OTHER SPECIFIED ANXIETY DISORDERS Status: Chronic Priority: Medium Current Visit: Yes Annotation/Comment:: Somewhat progressive during the last couple of months secondary to his chronic illnesses as above. Continue close followup by his regular provider (8) Osteoarthritis SNOMED Code(s): 671587762 Code(s): M19.90 - UNSPECIFIED OSTEOARTHRITIS, UNSPECIFIED SITE Status: Chronic Priority: Medium Current Visit: Yes Annotation/Comment:: Currently under good control with low-dose ibuprofen (9) Peptic reflux disease SNOMED Code(s): 22717954 Code(s): K21.9 - GASTRO-ESOPHAGEAL REFLUX DISEASE WITHOUT ESOPHAGITIS Status: Chronic Priority: Medium Current Visit: Yes Annotation/Comment:: Note recent history of upper GI bleed on 07/17/16 requiring epinephrine injection of duodenal ulcer and 5 units of blood. No significant abdominal discomfort or evidence of acute GI bleed at this time. High-dose IV Pepcid given on arrival to the emergency room - Problem List Review Problem List Initiated/Reviewed/Updated: Yes - My Orders Last 24 Hours: My Active Orders 09/30/16 15:47 Vital Signs [RC] Q6H 09/30/16 15:51 traMADol [Ultram] 50 mg PO Q6H PRN 09/30/16 Dinner Heart Healthy Diet [DIET] 09/30/16 Lunch Regular Diet [DIET] 10/01/16 05:11 COMPREHENSIVE METABOLIC PN,CMP [CHEM] AM 10/01/16 05:15 CBC WITH AUTO DIFF [HEME] AM 10/01/16 08:00 predniSONE 40 mg PO ONETIME ONE 10/01/16 15:50 predniSONE 40 mg PO ONETIME ONE - Assessment Assessment:: Patient stable. BP has improved. Continued discomfort in left scapular/shoulder/ chest area that at this time is more suggestive of musculo-skeletal cause. - Plan Plan:: Repeat troponin and CK-MB in AM. Repeat EKG in AM. Continue monitoring BP. If patient remains improved anticipate probable discharge home tomorrow afternoon or Wednesday morning.
[2016-09-30] MEDS: Isosorbide Mononitrate 30 MG Tab.ER PO SCH (17:51)
[2016-09-30] MEDS: Famotidine 20 MG/2 ML SDV IVPUSH SCH (17:53)
[2016-09-30] MEDS: Sodium Chloride 0.9% 10 ML Syringe FLUSH PRN (17:54)
[2016-09-30] MEDS: Loratadine 10 MG Tab PO SCH (19:44)
[2016-09-30] MEDS: atorvaSTATin 40 MG Tab PO SCH (19:44)
[2016-09-30] MEDS ORDERED: atorvaSTATin 40 MG Tab PO SCH (20:00)
[2016-09-30] MEDS: Acetaminophen 325 MG Tab PO PRN (22:22)
[2016-09-30] MEDS: Levofloxacin/Dextrose 5%-Water 500 MG in Premix Bag 1 BAG IV SCH (22:23)
[2016-10-01] MEDS: Albuterol/Ipratropium 3.0-0.5 MG/3 ML Neb Soln NEB SCH ×4 (01:21→19:57)
[2016-10-01] MEDS ORDERED: predniSONE 20 MG Tab PO ONE ×2 (08:00→15:50)
[2016-10-01] MEDS ORDERED: predniSONE 20 MG Tab ONE (08:20)
[2016-10-01 09:07] LABS: CHLORIDE,CL 103 mmol/L (98-107); SODIUM,NA 138 mmol/L (136-145)
[2016-10-01] MEDS: guaiFENesin 600 MG Tab.ER PO SCH ×2 (09:19→17:54)
[2016-10-01] MEDS: LORazepam 0.5 MG Tab PO SCH ×2 (09:19→17:55)
[2016-10-01] MEDS: Carvedilol 3.125 MG Tab PO SCH ×2 (09:19→17:55)
[2016-10-01] MEDS: Psyllium Husk Powder Sugar Free 5.85 GM Packet PO SCH (09:19)
[2016-10-01] MEDS: Aspirin 81 MG Tab.EC PO SCH (09:19)
[2016-10-01] MEDS: Famotidine 20 MG/2 ML SDV IVPUSH SCH ×2 (09:19→18:06)
[2016-10-01] MEDS: Budesonide 0.5 MG/2 ML Neb Susp NEB SCH ×2 (09:20→19:57)
[2016-10-01] MEDS: Doxycycline 100 MG Cap PO SCH ×2 (09:20→19:58)
[2016-10-01] MEDS: Sodium Chloride 1 GM Tab PO SCH ×3 (09:20→17:52)
[2016-10-01] MEDS: predniSONE 5 MG Tab PO SCH (09:20)
[2016-10-01] MEDS: Lisinopril 10 MG Tab PO SCH (09:20)
--- NOTE | 2016-10-01 09:59 | PCM.PN ---
- General Info Date of Service: 10/01/16 Subjective Update: As below Functional Status: Reports: Tolerating Diet, Ambulating, Urinating, Incentive Spirometry. Denies: Pain Controlled (Patient no longer complains of pleuritic type symptoms, however lower thoracic and lumbar and lumbar back pain persists with 10/10 discomfort with ambulation and 5/10 discomfort at rest sharp in nature with some muscle spasms), New Symptoms Pain Score: 5 (Otherwise as above) - Review of Systems General: Denies: Fever, Weakness, Fatigue, Malaise, Chills, Night Sweats, Appetite HEENT: Denies: Dysphasia, Ear Pain, Eye Pain, Sinus Congestion, Sore Throat, Rhinitis, Visual Changes Pulmonary: Reports: Cough. Denies: Shortness of Breath, Pleuritic Chest Pain, Sputum, Hemoptysis, Wheezing Cardiovascular: Reports: Dyspnea on Exertion (Stable chronic secondary to his pulmonary disease). Denies: Chest Pain, Palpitations, Orthopnea, PND, Edema, Lightheadedness Gastrointestinal: Reports: No Symptoms. Denies: Abdominal Pain, Constipation, Decreased Appetite, Diarrhea, Difficulty Swallowing, Flatus, Hematochezia, Melena, Nausea, Vomiting Genitourinary: Reports: No Symptoms. Denies: Dysuria, Frequency, Burning, Pain , Urgency, Incontinence, Hematuria, Retention, Flank Pain Musculoskeletal: Reports: Back Pain. Denies: Neck Pain, Shoulder Pain, Arm Pain , Leg Pain, Foot Pain, Joint Pain, Joint Swelling Skin: Reports: No Symptoms. Denies: Diaphoresis Neurological: Reports: No Symptoms. Denies: Confusion, Dizziness, Headache, Numbness, Paresthesia, Tingling, Difficulty Walking, Weakness Psychiatric: Reports: No Symptoms. Denies: Confusion, Depression, Anxiety, Agitation, Cravings, Hallucinations - Patient Data Vitals - Most Recent: Last Vital Signs Temp 36.1 C 10/01/16 00:00 Pulse 79 10/01/16 00:00 Resp 14 10/01/16 00:00 BP 106/74 10/01/16 00:00 Pulse Ox 94 L 10/01/16 00:00 Vital Signs - 24 hr 09/30/16 09/30/16 09/30/16 11:38 14:00 16:00 Temperature [ 36.8 C Oral] Temperature [ 36.4 C 36.1 C Temporal] Pulse, Peripheral Pulse, 75 80 87 Peripheral [ Right Pulse Oximetry] Respiratory 16 17 15 Rate Blood Pressure Blood Pressure 109/77 104/64 132/76 [Right Upper Arm] O2 Sat by Pulse 96 93 L 95 Oximetry 09/30/16 09/30/16 10/01/16 17:48 17:51 00:00 Temperature [ Oral] Temperature [ 36.1 C Temporal] Pulse, 80 Peripheral Pulse, 79 Peripheral [ Right Pulse Oximetry] Respiratory 14 Rate Blood Pressure 104/64 104/64 Blood Pressure 106/74 [Right Upper Arm] O2 Sat by Pulse 94 L Oximetry Weight - Most Recent: 74.134 kg I&O - Last 24 Hours: Intake & Output 09/30/16 10/01/16 10/01/16 22:59 06:59 14:59 Intake Total 2125 240 Output Total 2250 Balance -125 240 Imaging Impressions - Last 24 Hours: front desk monitor shows normal sinus rhythm with heart rate in the 70s with no ectopy or arrhythmia Lab Results Last 24 Hours: Laboratory Results - last 24 hr 10/01/16 10/01/16 Range/Units 06:40 06:40 WBC 6.9 (4.0-10.2) K/uL RBC 4.35 (4.33-5.41) M/uL Hgb 13.4 (13.1-16.8) g/dL Hct 39.9 (39.0-49.0) % MCV 91.7 (84.0-98.0) fL MCH 30.8 (28.2-33.3) pg MCHC 33.6 (31.7-36.0) g/dL RDW 13.7 (11.2-14.1) % Plt Count 150 (150-350) K/uL Neut % (Auto) 74.3 (45.0-80.0) % Lymph % (Auto) 17.2 (10.0-50.0) % [place] % (Auto) 6.4 (2.0-14.0) % Eos % (Auto) 1.7 (0.0-5.0) % Baso % (Auto) 0.4 (0.0-2.0) % Neut # (Auto) 5.09 (1.40-7.00) K/uL Lymph # (Auto) 1.18 (0.50-3.50) K/uL [place] # (Auto) 0.44 (0.00-1.00) K/uL Eos # (Auto) 0.12 (0.00-0.50) K/uL Baso # (Auto) 0.03 (0.00-0.20) K/uL Sodium 138 (136-145) mmol/L Potassium 3.5 (3.5-5.1) mmol/L Chloride 103 (98-107) mmol/L Carbon Dioxide 27.3 (21.0-32.0) mmol/L BUN 20 H (7-18) mg/dL Creatinine 1.26 H (0.51-1.17) mg/dL Est Cr Clr Drug Dosing 50.02 mL/min Estimated GFR (MDRD) 55 mL/min Glucose 127 H (74-106) mg/dL Calcium 8.2 L (8.5-10.1) mg/dL Total Bilirubin 1.3 H (0.2-1.0) mg/dL AST 17 (15-37) U/L ALT 24 (12-78) U/L Alkaline Phosphatase 70 (46-116) IU/L Creatine Kinase Index Not Reportable CK-MB (CK-2) 1.00 (0.00-3.60) ng/mL Troponin I 0.000 (0.000-0.056) ng/mL Total Protein 6.0 L (6.4-8.2) g/dL Albumin 3.1 L (3.4-5.0) g/dL Dung Results Last 24 Hours: Microbiology 09/29/16 22:52 MRSA (PCR) - Final Nasal, Right 09/29/16 22:52 Stool Occult Blood (DUNG) - Final Stool / Feces Note stool negative for Hemoccult and H. pylori antigen. POSITIVE for MRSA in right naris Med Orders - Current: Current Medications Acetaminophen (Tylenol) 650 mg PO Q4H PRN PRN Reason: Pain Last Admin: 09/30/16 22:22 Dose: 650 mg Albuterol (Proventil Neb Soln) 2.5 mg INH Q2H PRN PRN Reason: SHORTNESS OF BREATH Albuterol/Ipratropium (Duoneb 3.0-0.5 Mg/3 Ml) 3 ml NEB Q4HRRT PRN PRN Reason: Dyspnea Last Admin: 09/29/16 22:46 Dose: 3 ml Albuterol/Ipratropium (Duoneb 3.0-0.5 Mg/3 Ml) 3 ml NEB Q6HRRT REPLACED BY [facility] Last Admin: 10/01/16 09:19 Dose: Not Given Aspirin (Halfprin) 81 mg PO BRK REPLACED BY [facility] Last Admin: 10/01/16 09:19 Dose: Not Given Atorvastatin Calcium (Lipitor) 40 mg PO BEDTIME REPLACED BY [facility] Last Admin: 09/30/16 19:44 Dose: 40 mg Budesonide (Pulmicort) 0.5 mg NEB BIDRT REPLACED BY [facility] Last Admin: 10/01/16 09:20 Dose: Not Given Carvedilol (Coreg) 3.125 mg PO BID REPLACED BY [facility] Last Admin: 10/01/16 09:19 Dose: Not Given Doxycycline Hyclate (Vibramycin) 100 mg PO Q12HR REPLACED BY [facility] Last Admin: 10/01/16 09:20 Dose: Not Given Famotidine (Pepcid) 20 mg IVPUSH BID REPLACED BY [facility] Last Admin: 10/01/16 09:19 Dose: Not Given Guaifenesin (Mucinex) 600 mg PO BID REPLACED BY [facility] Last Admin: 10/01/16 09:19 Dose: Not Given Levofloxacin/Dextrose 500 mg/ (Premix) 100 mls @ 100 mls/hr IV Q24H REPLACED BY [facility] Last Admin: 09/30/16 22:23 Dose: 100 mls/hr Isosorbide Mononitrate (Imdur) 30 mg PO QPM REPLACED BY [facility] Last Admin: 09/30/16 17:51 Dose: 30 mg Lisinopril (Prinivil) 10 mg PO DAILY REPLACED BY [facility] Last Admin: 10/01/16 09:20 Dose: Not Given Loratadine (Claritin) 10 mg PO BEDTIME REPLACED BY [facility] Last Admin: 09/30/16 19:44 Dose: 10 mg Lorazepam (Ativan) 0.5 mg PO BID REPLACED BY [facility] Last Admin: 10/01/16 09:19 Dose: Not Given Prednisone (Prednisone) 10 mg PO DAILY REPLACED BY [facility] Last Admin: 10/01/16 09:20 Dose: Not Given Prednisone (Prednisone) 40 mg PO ONETIME ONE Stop: 10/01/16 15:51 Psyllium Husk (Metamucil Sugar Free) 2 pkt PO DAILY REPLACED BY [facility] Last Admin: 10/01/16 09:19 Dose: Not Given Sodium Chloride (Saline Flush) 10 ml FLUSH ASDIRECTED PRN PRN Reason: Keep Vein Open Last Admin: 09/30/16 17:54 Dose: 10 ml Sodium Chloride (Sodium Chloride) 1 gm PO TID YANA Last Admin: 10/01/16 09:20 Dose: Not Given Sodium Chloride (Saline Flush) 10 ml FLUSH Q12HR PRN PRN Reason: Keep Vein Open Tramadol HCl (Ultram) 50 mg PO Q6H PRN PRN Reason: Pain Last Admin: 09/30/16 19:44 Dose: 50 mg Discontinued Medications Aspirin (Aspirin) 324 mg CHEW ONETIME ONE Stop: 09/29/16 20:25 Last Admin: 09/29/16 20:31 Dose: 324 mg Aspirin (Halfprin) 81 mg PO BRK YANA Last Admin: 09/29/16 23:35 Dose: Not Given Atorvastatin Calcium (Lipitor) 40 mg PO BEDTIME YANA Famotidine (Pepcid) 40 mg IVPUSH ONETIME ONE Stop: 09/29/16 20:25 Last Admin: 09/29/16 20:31 Dose: 40 mg Loratadine (Claritin) 10 mg PO ONETIME ONE Stop: 09/29/16 23:31 Last Admin: 09/29/16 23:22 Dose: 10 mg Lorazepam (Ativan) 0.5 mg PO ONETIME ONE Stop: 09/29/16 23:31 Last Admin: 09/29/16 23:23 Dose: 0.5 mg Metoprolol Tartrate (Lopressor) 5 mg IVPUSH ONETIME ONE Stop: 09/29/16 20:25 Last Admin: 09/29/16 20:31 Dose: 5 mg Nitroglycerin (Nitrostat) 0.4 mg SL ONETIME STA Stop: 09/30/16 20:56 Last Admin: 09/29/16 20:58 Dose: 0.4 mg Prednisone (Prednisone) 40 mg PO ONETIME ONE Stop: 10/01/16 08:01 Last Admin: 10/01/16 09:20 Dose: Not Given Prednisone (Prednisone) Confirm Administered Dose 20 mg .ROUTE .STK-MED ONE Stop: 10/01/16 08:21 Last Admin: 10/01/16 09:20 Dose: Not Given Ticagrelor (Brilinta) 180 mg PO ONETIME ONE Stop: 09/29/16 20:25 Last Admin: 09/29/16 20:31 Dose: 180 mg - Exam Quality Assessment: Supplemental Oxygen, DVT Prophylaxis. No: Central Line/PICC , Urine Catheter, Skin Breakdown, Restraints General: Alert, Oriented, Cooperative, No Acute Distress HEENT: Pupils Equal, Pupils Reactive, EOMI, Mucous Membr. Moist/[place], Other ( Glasses) Neck: Supple, Trachea Midline, No JVD, No Thyromegaly, Carotid Bruit (Mild bilateral carotid bruits). No: Lymphadenopathy, Thyromegaly Lungs: Normal Respiratory Effort, Decreased Breath Sounds (Stable by history and previous exams), Rales (Mild bilateral basilar rales with overall good air flow for patient). No: Rhonchi, Rub, Stridor, Wheezing Cardiovascular: Regular Rate, Regular Rhythm, No Murmurs. No: Murmurs, Gallops , Rubs GI/Abdominal Exam: Normal Bowel Sounds, Soft, Non-Tender, No Organomegaly, No Distention, No Abnormal Bruit, No Mass, Pelvis Stable. No: Guarding (Male) Exam: Deferred Back Exam: Decreased Range of Motion (Mild secondary to back pain), Muscle Spasm (Mild bilateral paravertebral muscle spasms and localized tenderness in the lower thoracic and upper lumbar regions), Paraspinal Tenderness (As above). No: CVA Tenderness (L), CVA Tenderness (R) Extremities: Normal Range of Motion, Non-Tender, No Pedal Edema, Normal Capillary Refill, Pedal Edema, Other (2 cm in length abrasion with eschar over the proximal right fibular region with no local signs of infection). No: Kal' s Sign, Leg Pain, Redness Peripheral Pulses: 2+: Radial (L), Radial (R), Dorsalis Pedis (L), Dorsalis Pedis (R) Skin: Warm, Dry, Other (As above) Wound/Incisions: Other (As above) Neurological: No New Focal Deficit, Other (No clinical orthostasis) Psy/Mental Status: Alert, Anxious (Mild), Depressed (Mild with adequate eye contact). No: Agitated, Suicidal Ideation, Homicidal Ideation, Hallucinations, Withdrawal Symptoms EKG INTERPRETATION EKG Date: 10/01/16 Time: 07:37 Rhythm: NSR Rate (Beats/Min): 73 [place]: Normal (Neutral versus left) P-Wave: Enlarged (Moderate diffuse biphasic P waves with extreme poor R-wave progression in the anterior leads) QRS: Normal (QRS interval 0.09 seconds with some repolarization changes) ST-T: Other (Stable nonspecific ST changes with T-wave inversion in lead aVL and V1) QT: Normal HI/PQ Interval: 0.19 seconds Comparison: No Change (Last EKG on 09/30/16) - Problem List & Annotations (1) Hypertension SNOMED Code(s): 13305799 Code(s): I10 - ESSENTIAL (PRIMARY) HYPERTENSION Status: Acute Priority: High Current Visit: Yes Onset Date: 09/29/16 Qualifiers: Hypertension type: essential hypertension Qualified Code(s): I10 - Essential (primary) hypertension Annotation/Comment:: Blood pressures much improved since admission with multiple medication adjustments. Despite somewhat low systolic blood pressure no clinical orthostasis, etc. Note borderline hypertensive crisis on admission continue Imdur secondary to his previous cardiac history and recent uncontrolled blood pressure as above with consideration of dobutamine Cardiolite stress test on an outpatient basis are compared to recent probable HI as per emergency room note. No neurological deficits. Continue medication adjustment during hospitalization as needed. Patient is requesting an additional day of hospitalization secondary to his refractory low back pain and previous history of fairly labile COPD, which is steroid and oxygen dependent. (2) Coronary artery disease SNOMED Code(s): 00009248 Code(s): I25.10 - ATHSCL HEART DISEASE OF [place] CORONARY ARTERY W/O ANG PCTRS Status: Acute Priority: High Current Visit: Yes Qualifiers: Coronary Disease-Associated Artery/Lesion type: [place] artery [place] vs. transplanted heart: [place] heart Associated angina: with unstable angina Qualified Code(s): I25.110 - Atherosclerotic heart disease of [place] coronary artery with unstable angina pectoris Annotation/Comment:: Serial cardiac enzymes negative during this hospitalization. Outpatient cardiac workup as above. Possible unstable angina with atypical chest pain on admission, although pleuritic component as below, which has since resolved.. Chest pain protocol was initiated on patient's arrival to the emergency room. Note artifactually elevated CK index on admission. No significant EKG changes with evidence of previous anterolateral cardiac ischemia and recent HI in June 2016 with no procedures performed. Further Cardiology consultation depending on his clinical course. (3) CHF (congestive heart failure) SNOMED Code(s): 00149510 Code(s): I50.9 - HEART FAILURE, UNSPECIFIED Status: Acute Priority: High Current Visit: Yes Onset Date: 09/29/16 Qualifiers: Congestive heart failure type: diastolic Congestive heart failure chronicity: acute on chronic Qualified Code(s): I50.33 - Acute on chronic diastolic (congestive) heart failure Annotation/Comment:: Mild BNP elevation with no clinical evidence of significant CHF, including by chest x-ray. Note recent echocardiogram on with grade 2 diastolic dysfunction. Repeat BNP in the a.m. with lisinopril rather than Lotensin initiated on admission. Chest x-ray to be repeated tomorrow. (4) COPD, Severe chronic obstructive pulmonary disease SNOMED Code(s): 442509214 Code(s): J44.9 - CHRONIC OBSTRUCTIVE PULMONARY DISEASE, UNSPECIFIED Status : Acute Priority: Medium Current Visit: Yes Annotation/Comment:: Patient is afebrile at this time with no previous clinical evidence of significant pneumonia, including by physical exam and chest x-ray. Consider blood cultures, although patient does not have leukocytosis, with sputum specimen yet to be collected for culture and sensitivity. IV Levaquin initiated on admission. Baseline Severe disease requiring chronic oxygen and steroid oral supplementation, which was increased by [facility] physician yesterday. Secondary to his recent history of a duodenal ulcer his therapy will be returned back to his normal baseline. Note history of pulmonary hypertension, etc., however not evident in last echocardiogram. Continue aggressive nebulizer therapy. Pulmonary consultation depending on his clinical course (5) Mixed anxiety depressive disorder SNOMED Code(s): 911088462 Code(s): F41.8 - OTHER SPECIFIED ANXIETY DISORDERS Status: Chronic Priority: Medium Current Visit: Yes Annotation/Comment:: Somewhat progressive during the last couple of months secondary to his chronic illnesses as above. Continue close followup by his regular provider (6) Osteoarthritis SNOMED Code(s): 818519996 Code(s): M19.90 - UNSPECIFIED OSTEOARTHRITIS, UNSPECIFIED SITE Status: Chronic Priority: Medium Current Visit: Yes Annotation/Comment:: Currently under good control other than his low back pain-type symptoms. Initiate Flexeril with caution. Also initiate Tylenol on a regular regimen with one dose of IV Toradol. (7) Peptic reflux disease SNOMED Code(s): 13761656 Code(s): K21.9 - GASTRO-ESOPHAGEAL REFLUX DISEASE WITHOUT ESOPHAGITIS Status: Chronic Priority: Medium Current Visit: Yes Annotation/Comment:: Note recent history of upper GI bleed on 07/17/16 requiring epinephrine injection of duodenal ulcer and 5 units of blood. No significant abdominal discomfort or evidence of acute GI bleed at this time. High-dose IV Pepcid given on arrival to the emergency room . Continue high-dose IV Pepcid therapy as prophylactic measure as before (8) Gilbert syndrome SNOMED Code(s): 00741576 Code(s): E80.4 - GILBERT SYNDROME Status: Chronic Priority: Medium Current Visit: Yes Annotation/Comment:: Mild, nonsymptomatic (9) Hyponatremia SNOMED Code(s): 60549026 Code(s): E87.1 - HYPO-OSMOLALITY AND HYPONATREMIA Status: Chronic Priority: Medium Current Visit: Yes Annotation/Comment:: History of chronic hyponatremia with current sodium chloride supplementation. Observe closely secondary to his history of CHF as above (10) Renal insufficiency SNOMED Code(s): 267284513 Code(s): N28.9 - DISORDER OF KIDNEY AND URETER, UNSPECIFIED Status: Acute Priority: High Current Visit: Yes Onset Date: 10/01/16 Annotation/ Comment:: Repeat blood work in a.m. Observe closely secondary to recent lisinopril therapy, which will be decreased tomorrow morning secondary to his low systolic blood pressure. (11) MRSA (methicillin resistant staph aureus) culture positive SNOMED Code(s): 998620127 Code(s): Z22.322 - CARRIER OR SUSPECTED CARRIER OF METHICILLIN RESIS STAPH Status: Acute Priority: High Current Visit: Yes Onset Date: ~10/01/16 Annotation/Comment:: Patient already on doxycycline. Isolation precautions as per standard protocol (12) Hypoalbuminemia SNOMED Code(s): 966146786 Code(s): E88.09 - OTH DISORDERS OF PLASMA-PROTEIN METABOLISM, NEC Status: Acute Priority: Medium Current Visit: Yes Onset Date: ~10/01/16 Annotation/Comment:: Initiate high-protein Glucerna supplements as snacks (13) Hyperlipidemia SNOMED Code(s): 45142055 Code(s): E78.5 - HYPERLIPIDEMIA, UNSPECIFIED Status: Chronic Priority: Medium Current Visit: Yes Qualifiers: Hyperlipidemia type: pure hypercholesterolemia Qualified Code(s): E78.00 - Pure hypercholesterolemia, unspecified; E78.0 - Pure hypercholesterolemia Annotation/Comment:: Under therapy. Lipid panel and glycosylated hemoglobin normal during this hospitalization - Problem List Review Problem List Initiated/Reviewed/Updated: Yes - My Orders Last 24 Hours: My Active Orders 09/30/16 18:00 Famotidine [Pepcid] 20 mg IVPUSH BID 09/30/16 20:00 Loratadine [Claritin] 10 mg PO BEDTIME 10/01/16 09:56 Isolation [COMM] Routine - Assessment Assessment:: As above - Plan Plan:: As above. Extensive precautions were given to the patient, who is in agreement with the treatment plan. Probable discharge tomorrow versus transfer to swing bed care with patient previously having home health
[2016-10-01] MEDS ORDERED: Ketorolac 30 MG/ML SDV IVPUSH ONE (10:28)
[2016-10-01] MEDS ORDERED: Lisinopril 10 MG Tab PO SCH (10:29)
[2016-10-01] MEDS: Acetaminophen 325 MG Tab PO SCH ×3 (11:10→19:57)
[2016-10-01] MEDS: Cyclobenzaprine 10 MG Tab PO SCH ×2 (11:10→17:53)
[2016-10-01] MEDS: Isosorbide Mononitrate 30 MG Tab.ER PO SCH (17:53)
[2016-10-01] MEDS: Sodium Chloride 0.9% 10 ML Syringe FLUSH PRN ×2 (18:07→22:12)
[2016-10-01] MEDS: Loratadine 10 MG Tab PO SCH (19:58)
[2016-10-01] MEDS: atorvaSTATin 40 MG Tab PO SCH (19:59)
[2016-10-01] MEDS: Levofloxacin/Dextrose 5%-Water 500 MG in Premix Bag 1 BAG IV SCH (22:12)
[2016-10-02] MEDS: Albuterol/Ipratropium 3.0-0.5 MG/3 ML Neb Soln NEB SCH ×4 (02:02→20:40)
[2016-10-02 07:37] LABS: CHLORIDE,CL 103 mmol/L (98-107); SODIUM,NA 135 mmol/L (136-145)
[2016-10-02] MEDS: LORazepam 0.5 MG Tab PO SCH ×2 (08:11→17:07)
[2016-10-02] MEDS: Psyllium Husk Powder Sugar Free 5.85 GM Packet PO SCH (08:12)
[2016-10-02] MEDS: Aspirin 81 MG Tab.EC PO SCH (08:12)
[2016-10-02] MEDS: guaiFENesin 600 MG Tab.ER PO SCH ×2 (08:12→17:06)
[2016-10-02] MEDS: Cyclobenzaprine 10 MG Tab PO SCH ×3 (08:12→17:07)
[2016-10-02] MEDS: predniSONE 5 MG Tab PO SCH (08:13)
[2016-10-02] MEDS: Famotidine 20 MG/2 ML SDV IVPUSH SCH ×2 (08:13→17:06)
[2016-10-02] MEDS: Carvedilol 3.125 MG Tab PO SCH ×2 (08:13→17:07)
[2016-10-02] MEDS: Sodium Chloride 1 GM Tab PO SCH ×3 (08:14→17:07)
[2016-10-02] MEDS: Acetaminophen 325 MG Tab PO SCH ×4 (08:15→20:42)
[2016-10-02] MEDS: Doxycycline 100 MG Cap PO SCH ×2 (08:15→20:43)
[2016-10-02] MEDS: Sodium Chloride 0.9% 10 ML Syringe FLUSH PRN ×3 (08:16→22:31)
[2016-10-02] MEDS: Budesonide 0.5 MG/2 ML Neb Susp NEB SCH ×2 (08:16→20:44)
[2016-10-02] MEDS: Menthol/Methyl Salicylate 85 GM Tube TOP SCH ×4 (12:32→20:41)
--- NOTE | 2016-10-02 14:32 | PCM.PN ---
- General Info Date of Service: 10/02/16 Admission Dx/Problem (Free Text): 1. COPD, end-stage 2. Atypical chest pain 3. Back pain 4. Hypertension Subjective Update: As below Functional Status: Reports: Tolerating Diet, Ambulating, Urinating, Incentive Spirometry. Denies: Pain Controlled (Persistent intermittent severe lower thoracic and upper lumbar back pain), New Symptoms Pain Score: 8 - Review of Systems General: Reports: Other (Persistent problems with walking secondary to intermittent back pain). Denies: Fever, Weakness, Fatigue, Malaise, Night Sweats, Appetite (Appetite good) HEENT: Denies: Dysphasia, Ear Pain, Eye Pain, Headaches, Post Nasal Drip, Sinus Congestion, Sore Throat, Rhinitis, Visual Changes Pulmonary: Reports: Shortness of Breath (Stable chronic), Cough (Occasional), Wheezing (Occasional but stable by history). Denies: Pleuritic Chest Pain, Sputum, Hemoptysis Cardiovascular: Reports: Dyspnea on Exertion (Stable chronic secondary to pulmonary disease). Denies: Chest Pain, Palpitations, Orthopnea, PND, Edema, Lightheadedness Gastrointestinal: Reports: No Symptoms. Denies: Abdominal Pain, Constipation, Decreased Appetite, Diarrhea, Difficulty Swallowing, Flatus, Hematochezia, Melena, Nausea, Vomiting Genitourinary: Reports: No Symptoms. Denies: Dysuria, Frequency, Burning, Pain , Urgency, Incontinence, Hematuria, Retention, Flank Pain Musculoskeletal: Reports: Back Pain. Denies: Neck Pain, Shoulder Pain, Arm Pain , Hand Pain, Leg Pain, Joint Pain, Joint Swelling Skin: Reports: No Symptoms. Denies: Diaphoresis, Bruising Neurological: Reports: Difficulty Walking (Secondary to back pain), Weakness ( As above). Denies: Confusion, Dizziness, Headache, Numbness, Paresthesia, Seizure, Tingling, Tremors, Trouble Speaking, Change in Speech, Gait Disturbance Psychiatric: Reports: Depression (Stable by history), Anxiety (Jamel by history) . Denies: Confusion, Agitation, Cravings, Hallucinations - Patient Data Vitals - Most Recent: Last Vital Signs Temp 36.4 C 10/02/16 12:00 Pulse 82 10/02/16 12:00 Resp 16 10/02/16 12:00 BP 172/99 H 10/02/16 12:00 Pulse Ox 96 10/02/16 12:00 Vital Signs - 24 hr 10/01/16 10/01/16 10/01/16 17:53 17:55 18:00 Temperature [ 36.4 C Oral] Pulse, 75 Peripheral Pulse, Peripheral [ Left Pulse Oximetry] Pulse, 90 Peripheral [ Right Pulse Oximetry] Respiratory 18 Rate Blood Pressure 120/59 L 120/59 L Blood Pressure 161/101 H [Left Upper Arm ] Blood Pressure 170/94 H [Right Upper Arm] O2 Sat by Pulse 96 Oximetry 10/02/16 10/02/16 10/02/16 00:00 06:00 08:13 Temperature [ 36.2 C 36.4 C Oral] Pulse, 75 Peripheral Pulse, 75 87 Peripheral [ Left Pulse Oximetry] Pulse, Peripheral [ Right Pulse Oximetry] Respiratory 20 17 Rate Blood Pressure 158/82 H Blood Pressure 131/78 158/82 H [Left Upper Arm ] Blood Pressure [Right Upper Arm] O2 Sat by Pulse 97 94 L Oximetry 10/02/16 12:00 Temperature [ 36.4 C Oral] Pulse, Peripheral Pulse, 82 Peripheral [ Left Pulse Oximetry] Pulse, Peripheral [ Right Pulse Oximetry] Respiratory 16 Rate Blood Pressure Blood Pressure 172/99 H [Left Upper Arm ] Blood Pressure [Right Upper Arm] O2 Sat by Pulse 96 Oximetry Weight - Most Recent: 75.07 kg I&O - Last 24 Hours: Intake & Output 10/01/16 10/02/16 10/02/16 22:59 06:59 14:59 Intake Total 1040 500 600 Output Total 1150 675 Balance -110 -175 600 Imaging Impressions - Last 24 Hours: Chest x-ray, PA and lateral shows severe COPD changes with mild aortic valve calcification and probable left atrial enlargement with mild aortic arch prominent. Additional small hiatal hernia with moderate osteoarthritic and osteoporotic changes in the thoracic spine noted. No cardiomegaly, CHF, or pulmonary infiltrates, however likely pulmonary hypertension Lab Results Last 24 Hours: Laboratory Results - last 24 hr 10/02/16 10/02/16 Range/Units 06:45 06:45 WBC 7.8 (4.0-10.2) K/uL RBC 4.17 L (4.33-5.41) M/uL Hgb 12.8 L (13.1-16.8) g/dL Hct 37.8 L (39.0-49.0) % MCV 90.6 (84.0-98.0) fL MCH 30.7 (28.2-33.3) pg MCHC 33.9 (31.7-36.0) g/dL RDW 13.3 (11.2-14.1) % Plt Count 140 L (150-350) K/uL Neut % (Auto) 79.4 (45.0-80.0) % Lymph % (Auto) 11.0 (10.0-50.0) % [place] % (Auto) 8.8 (2.0-14.0) % Eos % (Auto) 0.5 (0.0-5.0) % Baso % (Auto) 0.3 (0.0-2.0) % Neut # (Auto) 6.22 (1.40-7.00) K/uL Lymph # (Auto) 0.86 (0.50-3.50) K/uL [place] # (Auto) 0.69 (0.00-1.00) K/uL Eos # (Auto) 0.04 (0.00-0.50) K/uL Baso # (Auto) 0.02 (0.00-0.20) K/uL Sodium 135 L (136-145) mmol/L Potassium 3.6 (3.5-5.1) mmol/L Chloride 103 (98-107) mmol/L Carbon Dioxide 22.9 (21.0-32.0) mmol/L BUN 17 (7-18) mg/dL Creatinine 0.95 (0.51-1.17) mg/dL Est Cr Clr Drug Dosing 67.40 mL/min Estimated GFR (MDRD) > 60 mL/min Glucose 96 (74-106) mg/dL Calcium 8.4 L (8.5-10.1) mg/dL Creatine Kinase 40 (26-308) U/L Creatine Kinase Index 3.5 H (0.0-2.5) % CK-MB (CK-2) 1.40 (0.00-3.60) ng/mL Troponin I 0.001 (0.000-0.056) ng/mL [id number] Pept 94 (0-125) pg/mL Dung Results Last 24 Hours: Microbiology 09/29/16 12:52 Stool / Feces Helicobacter pylori Antigen - Final 09/29/16 22:52 Nasal, Right MRSA (PCR) - Final 09/29/16 22:52 Stool / Feces Stool Occult Blood (DUNG) - Final MRSA positive with negative stool for occult blood and H. pylori antigen as per last progress note Med Orders - Current: Current Medications Acetaminophen (Tylenol) 650 mg PO Q4H PRN PRN Reason: Pain Last Admin: 09/30/16 22:22 Dose: 650 mg Acetaminophen (Tylenol) 650 mg PO QID [facility] Last Admin: 10/02/16 11:20 Dose: 650 mg Albuterol (Proventil Neb Soln) 2.5 mg INH Q2H PRN PRN Reason: SHORTNESS OF BREATH Albuterol/Ipratropium (Duoneb 3.0-0.5 Mg/3 Ml) 3 ml NEB Q4HRRT PRN PRN Reason: Dyspnea Last Admin: 09/29/16 22:46 Dose: 3 ml Albuterol/Ipratropium (Duoneb 3.0-0.5 Mg/3 Ml) 3 ml NEB Q6HRRT [facility] Last Admin: 10/02/16 14:12 Dose: 3 ml Aspirin (Halfprin) 81 mg PO BRK [facility] Last Admin: 10/02/16 08:12 Dose: 81 mg Atorvastatin Calcium (Lipitor) 40 mg PO BEDTIME [facility] Last Admin: 10/01/16 19:59 Dose: 40 mg Budesonide (Pulmicort) 0.5 mg NEB BIDRT [facility] Last Admin: 10/02/16 08:16 Dose: 0.5 mg Carvedilol (Coreg) 3.125 mg PO BID [facility] Last Admin: 10/02/16 08:13 Dose: 3.125 mg Cyclobenzaprine HCl (Flexeril) 10 mg PO TID [facility] Last Admin: 10/02/16 11:21 Dose: 10 mg Doxycycline Hyclate (Vibramycin) 100 mg PO Q12HR [facility] Last Admin: 10/02/16 08:15 Dose: 100 mg Famotidine (Pepcid) 20 mg IVPUSH BID [facility] Last Admin: 10/02/16 08:13 Dose: 20 mg Guaifenesin (Mucinex) 1,200 mg PO BID [facility] Last Admin: 10/02/16 08:12 Dose: 1,200 mg Levofloxacin/Dextrose 500 mg/ (Premix) 100 mls @ 100 mls/hr IV Q24H [facility] Last Admin: 10/01/16 22:12 Dose: 100 mls/hr Isosorbide Mononitrate (Imdur) 30 mg PO QPM [facility] Last Admin: 10/01/16 17:53 Dose: 30 mg Lisinopril (Prinivil) 5 mg PO DAILY [facility] Last Admin: 10/02/16 08:14 Dose: 5 mg Loratadine (Claritin) 10 mg PO BEDTIME [facility] Last Admin: 10/01/16 19:58 Dose: 10 mg Lorazepam (Ativan) 0.5 mg PO BID [facility] Last Admin: 10/02/16 08:11 Dose: 0.5 mg Methyl Salicylate (Icy Hot Cream) 1 gm TOP QID [facility] Last Admin: 10/02/16 12:33 Dose: Not Given Prednisone (Prednisone) 10 mg PO DAILY [facility] Last Admin: 10/02/16 08:13 Dose: 10 mg Psyllium Husk (Metamucil Sugar Free) 2 pkt PO DAILY [facility] Last Admin: 10/02/16 08:12 Dose: 2 pkt Sodium Chloride (Saline Flush) 10 ml FLUSH ASDIRECTED PRN PRN Reason: Keep Vein Open Last Admin: 10/02/16 08:16 Dose: 10 ml Sodium Chloride (Sodium Chloride) 1 gm PO TID [facility] Last Admin: 10/02/16 11:20 Dose: 1 gm Sodium Chloride (Saline Flush) 10 ml FLUSH Q12HR PRN PRN Reason: Keep Vein Open Discontinued Medications Aspirin (Aspirin) 324 mg CHEW ONETIME ONE Stop: 09/29/16 20:25 Last Admin: 09/29/16 20:31 Dose: 324 mg Aspirin (Halfprin) 81 mg PO BRK [facility] Last Admin: 09/29/16 23:35 Dose: Not Given Atorvastatin Calcium (Lipitor) 40 mg PO BEDTIME [facility] Famotidine (Pepcid) 40 mg IVPUSH ONETIME ONE Stop: 09/29/16 20:25 Last Admin: 09/29/16 20:31 Dose: 40 mg Guaifenesin (Mucinex) 600 mg PO BID [facility] Last Admin: 10/01/16 09:19 Dose: Not Given Ketorolac Tromethamine (Toradol) 30 mg IVPUSH ONETIME ONE Stop: 10/01/16 10:29 Last Admin: 10/01/16 11:08 Dose: 30 mg Lisinopril (Prinivil) 10 mg PO DAILY [facility] Last Admin: 10/01/16 09:20 Dose: Not Given Loratadine (Claritin) 10 mg PO ONETIME ONE Stop: 09/29/16 23:31 Last Admin: 09/29/16 23:22 Dose: 10 mg Lorazepam (Ativan) 0.5 mg PO ONETIME ONE Stop: 09/29/16 23:31 Last Admin: 09/29/16 23:23 Dose: 0.5 mg Metoprolol Tartrate (Lopressor) 5 mg IVPUSH ONETIME ONE Stop: 09/29/16 20:25 Last Admin: 09/29/16 20:31 Dose: 5 mg Nitroglycerin (Nitrostat) 0.4 mg SL ONETIME STA Stop: 09/30/16 20:56 Last Admin: 09/29/16 20:58 Dose: 0.4 mg Prednisone (Prednisone) 40 mg PO ONETIME ONE Stop: 10/01/16 15:51 Prednisone (Prednisone) 40 mg PO ONETIME ONE Stop: 10/01/16 08:01 Last Admin: 10/01/16 09:20 Dose: Not Given Prednisone (Prednisone) Confirm Administered Dose 20 mg .ROUTE .STK-MED ONE Stop: 10/01/16 08:21 Last Admin: 10/01/16 09:20 Dose: Not Given Ticagrelor (Brilinta) 180 mg PO ONETIME ONE Stop: 09/29/16 20:25 Last Admin: 09/29/16 20:31 Dose: 180 mg Tramadol HCl (Ultram) 50 mg PO Q6H PRN PRN Reason: Pain Last Admin: 09/30/16 19:44 Dose: 50 mg - Exam Quality Assessment: Supplemental Oxygen, DVT Prophylaxis. No: Central Line/PICC , Urine Catheter, Skin Breakdown, Restraints General: Alert, Oriented, Cooperative, No Acute Distress HEENT: Pupils Equal, Pupils Reactive, EOMI, Mucous Membr. Moist/[place] Neck: Supple, Trachea Midline, No JVD, No Thyromegaly. No: Lymphadenopathy Lungs: Normal Respiratory Effort, Decreased Breath Sounds (Stable), Rales (Mild bilateral rales). No: Rhonchi, Rub, Stridor, Wheezing Cardiovascular: Regular Rate, Regular Rhythm, No Murmurs. No: Gallops, Rubs GI/Abdominal Exam: Normal Bowel Sounds, Soft, Non-Tender, No Organomegaly, No Distention, No Abnormal Bruit, No Mass, Pelvis Stable. No: Guarding (Male) Exam: Deferred Back Exam: Decreased Range of Motion (Secondary to back pain), Muscle Spasm ( Persistent mild upper lumbar paravertebral muscle spasms and local palpation pain), Paraspinal Tenderness (As above). No: CVA Tenderness (L), CVA Tenderness (R), Vertebral Tenderness Extremities: Normal Inspection, Normal Range of Motion, Non-Tender, No Pedal Edema, Normal Capillary Refill. No: Kal's Sign Peripheral Pulses: 2+: Radial (L), Radial (R), Dorsalis Pedis (L), Dorsalis Pedis (R) Skin: Warm, Dry, Intact. No: Ecchymosis Neurological: No New Focal Deficit Psy/Mental Status: Anxious (Moderate), Depressed (Moderate with adequate eye contact) - Problem List & Annotations (1) Hypertension SNOMED Code(s): 48590042 Code(s): I10 - ESSENTIAL (PRIMARY) HYPERTENSION Status: Acute Priority: High Current Visit: Yes Onset Date: 09/29/16 Qualifiers: Hypertension type: essential hypertension Qualified Code(s): I10 - Essential (primary) hypertension Annotation/Comment:: Blood pressures are still much improved since admission with multiple medication adjustments, however are somewhat intermittently elevated today secondary to his low back pain and also anxiety. Note borderline hypertensive crisis on admission with his previous Imdur to be increased secondary to his previous cardiac history and recent uncontrolled blood pressure as above. Consideration of dobutamine Cardiolite stress test on an outpatient basis secondary to recent probable NH as per emergency room note. No neurological deficits. Continue medication adjustment during hospitalization as needed. Patient is requesting an additional day of hospitalization secondary to his refractory low back pain and previous history of fairly labile COPD, which is steroid and oxygen dependent. He will likely need transferred to swing bed tomorrow secondary to his refractory symptoms with case management consultation ordered for further evaluation. (2) Coronary artery disease SNOMED Code(s): 20758369 Code(s): I25.10 - ATHSCL HEART DISEASE OF [place] CORONARY ARTERY W/O ANG PCTRS Status: Acute Priority: High Current Visit: Yes Qualifiers: Coronary Disease-Associated Artery/Lesion type: [place] artery [place] vs. transplanted heart: [place]er heart Associated angina: with unstable angina Qualified Code(s): I25.110 - Atherosclerotic heart disease of [place] coronary artery with unstable angina pectoris Annotation/Comment:: Serial cardiac enzymes negative during this hospitalization. Outpatient cardiac workup as above. Possible unstable angina with atypical chest pain on admission, although pleuritic component as below, which has since resolved.. Chest pain protocol was initiated on patient's arrival to the emergency room. Note artifactually elevated CK index on admission. No significant EKG changes with evidence of previous anterolateral cardiac ischemia and recent NH in June 2016 with no procedures performed. Further Cardiology consultation depending on his clinical course. (3) CHF (congestive heart failure) SNOMED Code(s): 21924760 Code(s): I50.9 - HEART FAILURE, UNSPECIFIED Status: Acute Priority: High Current Visit: Yes Onset Date: 09/29/16 Qualifiers: Congestive heart failure type: diastolic Congestive heart failure chronicity: acute on chronic Qualified Code(s): I50.33 - Acute on chronic diastolic (congestive) heart failure Annotation/Comment:: Mild BNP elevation with no clinical evidence of significant CHF, including by chest x-ray. Note recent echocardiogram on with grade 2 diastolic dysfunction. Lisinopril rather than Lotensin initiated on admission. Chest x-ray today showed no significant CHF. (4) COPD, Severe chronic obstructive pulmonary disease SNOMED Code(s): 090046020 Code(s): J44.9 - CHRONIC OBSTRUCTIVE PULMONARY DISEASE, UNSPECIFIED Status : Acute Priority: Medium Current Visit: Yes Annotation/Comment:: Patient is afebrile at this time with no previous clinical evidence of significant pneumonia, including by physical exam and chest x-ray. Consider blood cultures, although patient does not have leukocytosis, with sputum specimen yet to be collected for culture and sensitivity. IV Levaquin initiated on admission. Baseline Severe disease requiring chronic oxygen and steroid oral supplementation, which was increased by [facility] earlier during this hospitalization. Secondary to his recent history of a duodenal ulcer his prednisone therapy will be returned back to his normal baseline with some mild progressive anemia today. Note history of pulmonary hypertension, etc., however not evident in last echocardiogram. Continue aggressive nebulizer therapy. Pulmonary consultation depending on his clinical course. Probable swing bed care as above (5) Mixed anxiety depressive disorder SNOMED Code(s): 531268556 Code(s): F41.8 - OTHER SPECIFIED ANXIETY DISORDERS Status: Chronic Priority: Medium Current Visit: Yes Annotation/Comment:: Somewhat progressive during the last couple of months secondary to his chronic illnesses as above. Continue close followup by his regular provider. His Ativan will be increased secondary to his persistent anxiety and also as a muscle relaxant. Continue additional Flexeril therapy with caution, although this may not be needed later secondary to increased Ativan as above (6) Osteoarthritis SNOMED Code(s): 138515885 Code(s): M19.90 - UNSPECIFIED OSTEOARTHRITIS, UNSPECIFIED SITE Status: Chronic Priority: Medium Current Visit: Yes Annotation/Comment:: Currently under good control other than his low back pain-type symptoms. Initiated Flexeril with caution yesterday. Also initiated Tylenol on a regular regimen with one dose of IV Toradol given yesterday, however no further Toradol for now secondary to his ulcer history and mild progressive anemia. Physical therapy consultation today with the patient already having a lumbar back brace at home. Physical Therapy will further evaluate the patient for possible swing bed care as above (7) Peptic reflux disease SNOMED Code(s): 92379503 Code(s): K21.9 - GASTRO-ESOPHAGEAL REFLUX DISEASE WITHOUT ESOPHAGITIS Status: Chronic Priority: Medium Current Visit: Yes Annotation/Comment:: Note recent history of upper GI bleed on 07/17/16 requiring epinephrine injection of duodenal ulcer and 5 units of blood. No significant abdominal discomfort or evidence of acute GI bleed at this time. High-dose IV Pepcid given on arrival to the emergency room . Continue high-dose IV Pepcid therapy as prophylactic measure as before (8) Gilbert syndrome SNOMED Code(s): 68105191 Code(s): E80.4 - GILBERT SYNDROME Status: Chronic Priority: Medium Current Visit: Yes Annotation/Comment:: Mild, nonsymptomatic (9) Hyponatremia SNOMED Code(s): 35754814 Code(s): E87.1 - HYPO-OSMOLALITY AND HYPONATREMIA Status: Chronic Priority: Medium Current Visit: Yes Annotation/Comment:: History of chronic hyponatremia with current sodium chloride supplementation. Observe closely secondary to his history of CHF as above (10) Renal insufficiency SNOMED Code(s): 072659003 Code(s): N28.9 - DISORDER OF KIDNEY AND URETER, UNSPECIFIED Status: Acute Priority: High Current Visit: Yes Onset Date: 10/01/16 Annotation/ Comment:: Repeat blood work in a.m. Observe closely secondary to recent lisinopril therapy, which was decreased this morning secondary to his low systolic blood pressure yesterday. Note increased Imdur with possible further increase of lisinopril depending on blood pressures (11) MRSA (methicillin resistant staph aureus) culture positive SNOMED Code(s): 915507810 Code(s): Z22.322 - CARRIER OR SUSPECTED CARRIER OF METHICILLIN RESIS STAPH Status: Acute Priority: High Current Visit: Yes Onset Date: ~10/01/16 Annotation/Comment:: Patient already on doxycycline. Isolation precautions as per standard protocol (12) Hypoalbuminemia SNOMED Code(s): 215849193 Code(s): E88.09 - OTH DISORDERS OF PLASMA-PROTEIN METABOLISM, NEC Status: Acute Priority: Medium Current Visit: Yes Onset Date: ~10/01/16 Annotation/Comment:: Initiate high-protein Glucerna supplements as snacks (13) Hyperlipidemia SNOMED Code(s): 27448104 Code(s): E78.5 - HYPERLIPIDEMIA, UNSPECIFIED Status: Chronic Priority: Medium Current Visit: Yes Qualifiers: Hyperlipidemia type: pure hypercholesterolemia Qualified Code(s): E78.00 - Pure hypercholesterolemia, unspecified; E78.0 - Pure hypercholesterolemia Annotation/Comment:: Under therapy. Lipid panel and glycosylated hemoglobin normal during this hospitalization - Problem List Review Problem List Initiated/Reviewed/Updated: Yes - My Orders Last 24 Hours: My Active Orders 10/01/16 18:00 guaiFENesin [Mucinex] 1,200 mg PO BID 10/02/16 05:11 Chest 2V [CR] Routine 10/02/16 10:02 PT Evaluation and Treatment [CONS] Routine 10/02/16 11:29 Menthol/Methyl Salicylate [Icy Hot Cream] 1 gm TOP QID - Assessment Assessment:: As above - Plan Plan:: As above. Extensive precautions were given to the patient, who is in agreement with the treatment plan. [facility] physician assumes patient care later this afternoo. Probable discharge tomorrow versus transfer to swing bed care with patient previously having home health
[2016-10-02] MEDS ORDERED: Nitroglycerin 0.4 MG Tab.SL SL STA (16:12)
[2016-10-02] MEDS ORDERED: Isosorbide Mononitrate 30 MG Tab.ER PO ONE (16:12)
[2016-10-02] MEDS ORDERED: Isosorbide Mononitrate 60 MG Tab.ER PO ONE (16:14)
[2016-10-02] MEDS: Loratadine 10 MG Tab PO SCH (20:41)
[2016-10-02] MEDS: atorvaSTATin 40 MG Tab PO SCH (20:42)
[2016-10-02] MEDS: Levofloxacin/Dextrose 5%-Water 500 MG in Premix Bag 1 BAG IV SCH (22:28)
[2016-10-03] MEDS: Albuterol/Ipratropium 3.0-0.5 MG/3 ML Neb Soln NEB SCH ×4 (02:02→20:04)
[2016-10-03] MEDS: Budesonide 0.5 MG/2 ML Neb Susp NEB SCH ×2 (07:39→20:04)
[2016-10-03] MEDS: predniSONE 5 MG Tab PO SCH (07:40)
[2016-10-03] MEDS: Carvedilol 3.125 MG Tab PO SCH ×2 (07:42→17:29)
[2016-10-03] MEDS: Aspirin 81 MG Tab.EC PO SCH (07:42)
[2016-10-03] MEDS: Acetaminophen 325 MG Tab PO SCH ×4 (07:43→20:04)
[2016-10-03] MEDS: guaiFENesin 600 MG Tab.ER PO SCH ×2 (07:45→17:26)
[2016-10-03] MEDS: Sodium Chloride 1 GM Tab PO SCH ×3 (07:45→17:26)
[2016-10-03] MEDS: LORazepam 0.5 MG Tab PO SCH ×2 (07:46→17:26)
[2016-10-03] MEDS: Cyclobenzaprine 10 MG Tab PO SCH ×3 (07:46→17:27)
[2016-10-03] MEDS: Doxycycline 100 MG Cap PO SCH ×2 (07:46→20:05)
[2016-10-03] MEDS: Lisinopril 10 MG Tab PO SCH (07:47)
[2016-10-03] MEDS: Sodium Chloride 0.9% 10 ML Syringe FLUSH PRN ×3 (07:48→22:20)
[2016-10-03] MEDS: Famotidine 20 MG/2 ML SDV IVPUSH SCH ×2 (07:48→17:27)
[2016-10-03] MEDS: Psyllium Husk Powder Sugar Free 5.85 GM Packet PO SCH (07:49)
[2016-10-03] MEDS: Menthol/Methyl Salicylate 85 GM Tube TOP SCH ×3 (07:50→17:24)
[2016-10-03 08:20] LABS: CHLORIDE,CL 105 mmol/L (98-107); SODIUM,NA 137 mmol/L (136-145)
--- NOTE | 2016-10-03 16:46 | PCM.PN ---
- General Info Date of Service: 10/03/16 Admission Dx/Problem (Free Text): 1. COPD, end-stage 2. Atypical chest pain 3. Back pain 4. Hypertension Subjective Update: As below Functional Status: Reports: Tolerating Diet, Ambulating, Other (Back pain is limiting patient's ability to walk. Pain has not improved. ) - Review of Systems General: Reports: No Symptoms HEENT: Reports: No Symptoms (no acute changes) Pulmonary: Reports: Shortness of Breath (chronic, at baseline per patient. Feels worse when accompanied by back pain however. ) Cardiovascular: Reports: Dyspnea on Exertion (chronic, at baseline. Worsened however when accompanied by acute back pain) Gastrointestinal: Reports: No Symptoms Genitourinary: Reports: No Symptoms Musculoskeletal: Reports: Back Pain Neurological: Reports: Difficulty Walking (due to back pain). Denies: Confusion , Dizziness, Headache, Numbness, Paresthesia, Trouble Speaking, Weakness, Change in Speech Psychiatric: Reports: Depression (chronic), Anxiety (chronic) - Patient Data Vitals - Most Recent: Last Vital Signs Temp 36.3 C 10/03/16 12:00 Pulse 87 10/03/16 12:00 Resp 20 10/03/16 12:00 BP 135/83 10/03/16 12:00 Pulse Ox 97 10/03/16 12:00 Weight - Most Recent: 74.298 kg I&O - Last 24 Hours: Intake & Output 10/03/16 10/03/16 10/03/16 06:59 14:59 22:59 Intake Total 100 640 Output Total 1000 Balance -900 640 Lab Results Last 24 Hours: Laboratory Results - last 24 hr 10/03/16 10/03/16 Range/Units 07:20 07:20 WBC 6.3 (4.0-10.2) K/uL RBC 4.20 L (4.33-5.41) M/uL Hgb 12.8 L (13.1-16.8) g/dL Hct 38.8 L (39.0-49.0) % MCV 92.4 (84.0-98.0) fL MCH 30.5 (28.2-33.3) pg MCHC 33.0 (31.7-36.0) g/dL RDW 13.6 (11.2-14.1) % Plt Count 141 L (150-350) K/uL Neut % (Auto) 71.5 (45.0-80.0) % Lymph % (Auto) 17.9 (10.0-50.0) % [place] % (Auto) 8.5 (2.0-14.0) % Eos % (Auto) 1.6 (0.0-5.0) % Baso % (Auto) 0.5 (0.0-2.0) % Neut # (Auto) 4.53 (1.40-7.00) K/uL Lymph # (Auto) 1.13 (0.50-3.50) K/uL [place] # (Auto) 0.54 (0.00-1.00) K/uL Eos # (Auto) 0.10 (0.00-0.50) K/uL Baso # (Auto) 0.03 (0.00-0.20) K/uL Sodium 137 (136-145) mmol/L Potassium 4.2 (3.5-5.1) mmol/L Chloride 105 (98-107) mmol/L Carbon Dioxide 28.0 (21.0-32.0) mmol/L BUN 16 (7-18) mg/dL Creatinine 1.06 (0.51-1.17) mg/dL Est Cr Clr Drug Dosing 60.41 mL/min Estimated GFR (MDRD) > 60 mL/min Glucose 90 (74-106) mg/dL Calcium 8.2 L (8.5-10.1) mg/dL Med Orders - Current: Current Medications Acetaminophen (Tylenol) 650 mg PO Q4H PRN PRN Reason: Pain Last Admin: 09/30/16 22:22 Dose: 650 mg Acetaminophen (Tylenol) 650 mg PO QID YANA Last Admin: 10/03/16 11:42 Dose: 650 mg Albuterol (Proventil Neb Soln) 2.5 mg INH Q2H PRN PRN Reason: SHORTNESS OF BREATH Albuterol/Ipratropium (Duoneb 3.0-0.5 Mg/3 Ml) 3 ml NEB Q4HRRT PRN PRN Reason: Dyspnea Last Admin: 09/29/16 22:46 Dose: 3 ml Albuterol/Ipratropium (Duoneb 3.0-0.5 Mg/3 Ml) 3 ml NEB Q6HRRT YANA Last Admin: 10/03/16 13:18 Dose: 3 ml Aspirin (Halfprin) 81 mg PO BRK [facility] Last Admin: 10/03/16 07:42 Dose: 81 mg Atorvastatin Calcium (Lipitor) 40 mg PO BEDTIME [facility] Last Admin: 10/02/16 20:42 Dose: 40 mg Budesonide (Pulmicort) 0.5 mg NEB BIDRT [facility] Last Admin: 10/03/16 07:39 Dose: 0.5 mg Carvedilol (Coreg) 3.125 mg PO BID [facility] Last Admin: 10/03/16 07:42 Dose: 3.125 mg Cyclobenzaprine HCl (Flexeril) 10 mg PO TID [facility] Last Admin: 10/03/16 11:41 Dose: 10 mg Doxycycline Hyclate (Vibramycin) 100 mg PO Q12HR [facility] Last Admin: 10/03/16 07:46 Dose: 100 mg Famotidine (Pepcid) 20 mg IVPUSH BID [facility] Last Admin: 10/03/16 07:48 Dose: 20 mg Guaifenesin (Mucinex) 1,200 mg PO BID [facility] Last Admin: 10/03/16 07:45 Dose: 1,200 mg Levofloxacin/Dextrose 500 mg/ (Premix) 100 mls @ 100 mls/hr IV Q24H [facility] Last Admin: 10/02/16 22:28 Dose: 100 mls/hr Isosorbide Mononitrate (Imdur) 60 mg PO QPM [facility] Lisinopril (Prinivil) 10 mg PO DAILY [facility] Last Admin: 10/03/16 07:47 Dose: 10 mg Loratadine (Claritin) 10 mg PO BEDTIME [facility] Last Admin: 10/02/16 20:41 Dose: 10 mg Lorazepam (Ativan) 0.5 mg PO BID [facility] Last Admin: 10/03/16 07:46 Dose: 0.5 mg Methyl Salicylate (Icy Hot Cream) 1 gm TOP QID [facility] Last Admin: 10/03/16 11:42 Dose: Not Given Prednisone (Prednisone) 10 mg PO DAILY [facility] Last Admin: 10/03/16 07:40 Dose: 10 mg Psyllium Husk (Metamucil Sugar Free) 2 pkt PO DAILY [facility] Last Admin: 10/03/16 07:49 Dose: 2 pkt Sodium Chloride (Saline Flush) 10 ml FLUSH ASDIRECTED PRN PRN Reason: Keep Vein Open Last Admin: 10/03/16 07:48 Dose: 10 ml Sodium Chloride (Sodium Chloride) 1 gm PO TID [facility] Last Admin: 10/03/16 11:41 Dose: 1 gm Sodium Chloride (Saline Flush) 10 ml FLUSH Q12HR PRN PRN Reason: Keep Vein Open Last Admin: 10/02/16 17:06 Dose: 10 ml Discontinued Medications Aspirin (Aspirin) 324 mg CHEW ONETIME ONE Stop: 09/29/16 20:25 Last Admin: 09/29/16 20:31 Dose: 324 mg Aspirin (Halfprin) 81 mg PO BRK [facility] Last Admin: 09/29/16 23:35 Dose: Not Given Atorvastatin Calcium (Lipitor) 40 mg PO BEDTIME [facility] Famotidine (Pepcid) 40 mg IVPUSH ONETIME ONE Stop: 09/29/16 20:25 Last Admin: 09/29/16 20:31 Dose: 40 mg Guaifenesin (Mucinex) 600 mg PO BID [facility] Last Admin: 10/01/16 09:19 Dose: Not Given Isosorbide Mononitrate (Imdur) 30 mg PO QPM [facility] Last Admin: 10/01/16 17:53 Dose: 30 mg Isosorbide Mononitrate (Imdur) 30 mg PO ONETIME ONE Stop: 10/02/16 16:13 Last Admin: 10/02/16 16:21 Dose: Not Given Isosorbide Mononitrate (Imdur) 60 mg PO ONETIME ONE Stop: 10/02/16 16:15 Last Admin: 10/02/16 16:30 Dose: 60 mg Ketorolac Tromethamine (Toradol) 30 mg IVPUSH ONETIME ONE Stop: 10/01/16 10:29 Last Admin: 10/01/16 11:08 Dose: 30 mg Lisinopril (Prinivil) 10 mg PO DAILY [facility] Last Admin: 10/01/16 09:20 Dose: Not Given Lisinopril (Prinivil) 5 mg PO DAILY [facility] Last Admin: 10/02/16 08:14 Dose: 5 mg Loratadine (Claritin) 10 mg PO ONETIME ONE Stop: 09/29/16 23:31 Last Admin: 09/29/16 23:22 Dose: 10 mg Lorazepam (Ativan) 0.5 mg PO ONETIME ONE Stop: 09/29/16 23:31 Last Admin: 09/29/16 23:23 Dose: 0.5 mg Metoprolol Tartrate (Lopressor) 5 mg IVPUSH ONETIME ONE Stop: 09/29/16 20:25 Last Admin: 09/29/16 20:31 Dose: 5 mg Nitroglycerin (Nitrostat) 0.4 mg SL ONETIME STA Stop: 09/30/16 20:56 Last Admin: 09/29/16 20:58 Dose: 0.4 mg Nitroglycerin (Nitrostat) 0.4 mg SL ONETIME STA Stop: 10/03/16 16:13 Last Admin: 10/02/16 16:30 Dose: 0.4 mg Prednisone (Prednisone) 40 mg PO ONETIME ONE Stop: 10/01/16 15:51 Prednisone (Prednisone) 40 mg PO ONETIME ONE Stop: 10/01/16 08:01 Last Admin: 10/01/16 09:20 Dose: Not Given Prednisone (Prednisone) Confirm Administered Dose 20 mg .ROUTE .STK-MED ONE Stop: 10/01/16 08:21 Last Admin: 10/01/16 09:20 Dose: Not Given Ticagrelor (Brilinta) 180 mg PO ONETIME ONE Stop: 09/29/16 20:25 Last Admin: 09/29/16 20:31 Dose: 180 mg Tramadol HCl (Ultram) 50 mg PO Q6H PRN PRN Reason: Pain Last Admin: 09/30/16 19:44 Dose: 50 mg - Exam Quality Assessment: Supplemental Oxygen, DVT Prophylaxis General: Alert, Oriented, Cooperative, No Acute Distress HEENT: Pupils Equal, Pupils Reactive, EOMI, Mucous Membr. Moist/[place] Neck: Supple Lungs: Clear to Auscultation, Normal Respiratory Effort Cardiovascular: Regular Rate, Regular Rhythm, No Murmurs GI/Abdominal Exam: Normal Bowel Sounds, Soft, Non-Tender, No Distention, No Mass (Male) Exam: Deferred Back Exam: Decreased Range of Motion (due to pain), Paraspinal Tenderness ( lower portion thoracic spine), Vertebral Tenderness (lower portion thoracic spine). No: CVA Tenderness (L), CVA Tenderness (R), Muscle Spasm Extremities: Non-Tender, Normal Capillary Refill Peripheral Pulses: 2+: Radial (L), Radial (R), Dorsalis Pedis (L), Dorsalis Pedis (R) Skin: Warm, Dry Neurological: No New Focal Deficit Psy/Mental Status: Alert, Normal Affect, Normal Mood - Problem List & Annotations (1) CHF (congestive heart failure) SNOMED Code(s): 76328490 Code(s): I50.9 - HEART FAILURE, UNSPECIFIED Status: Acute Priority: High Current Visit: Yes Onset Date: 09/29/16 Qualifiers: Congestive heart failure type: diastolic Congestive heart failure chronicity: acute on chronic Qualified Code(s): I50.33 - Acute on chronic diastolic (congestive) heart failure Annotation/Comment:: Mild BNP elevation with no clinical evidence of significant CHF, including by chest x-ray. Note recent echocardiogram on with grade 2 diastolic dysfunction. Lisinopril rather than Lotensin initiated on admission. Chest x-ray showed no significant CHF. (2) COPD, Severe chronic obstructive pulmonary disease SNOMED Code(s): 042042825 Code(s): J44.9 - CHRONIC OBSTRUCTIVE PULMONARY DISEASE, UNSPECIFIED Status : Acute Priority: Medium Current Visit: Yes Annotation/Comment:: Patient is afebrile at this time with no previous clinical evidence of significant pneumonia, including by physical exam and chest x-ray. IV Levaquin initiated on admission. Note history of pulmonary hypertension, etc., however not evident in last echocardiogram. Continue aggressive nebulizer therapy. Pulmonary consultation depending on his clinical course. Probable swing bed care as above (3) Coronary artery disease SNOMED Code(s): 15824285 Code(s): I25.10 - ATHSCL HEART DISEASE OF [place] CORONARY ARTERY W/O ANG PCTRS Status: Acute Priority: High Current Visit: Yes Qualifiers: Coronary Disease-Associated Artery/Lesion type: [place] artery [place] vs. transplanted heart: [place] heart Associated angina: with unstable angina Qualified Code(s): I25.110 - Atherosclerotic heart disease of [place] coronary artery with unstable angina pectoris Annotation/Comment:: Serial cardiac enzymes negative during this hospitalization. Outpatient cardiac workup as above. Possible unstable angina with atypical chest pain on admission, although pleuritic component as below, which has since resolved.. Chest pain protocol was initiated on patient's arrival to the emergency room. Note artifactually elevated CK index on admission. No significant EKG changes with evidence of previous anterolateral cardiac ischemia and recent NV in June 2016 with no procedures performed. Further Cardiology consultation depending on his clinical course. (4) Hypertension SNOMED Code(s): 79771528 Code(s): I10 - ESSENTIAL (PRIMARY) HYPERTENSION Status: Acute Priority: High Current Visit: Yes Onset Date: 09/29/16 Qualifiers: Hypertension type: essential hypertension Qualified Code(s): I10 - Essential (primary) hypertension Annotation/Comment:: Blood pressures are still much improved since admission with multiple medication adjustments, however are somewhat intermittently elevated secondary to his low back pain and also anxiety. Consideration of dobutamine Cardiolite stress test on an outpatient basis secondary to recent probable NV as per emergency room note. No neurological deficits. Continue medication adjustment during hospitalization as needed. (5) Gilbert syndrome SNOMED Code(s): 63973005 Code(s): E80.4 - GILBERT SYNDROME Status: Chronic Priority: Medium Current Visit: Yes Annotation/Comment:: Mild, nonsymptomatic (6) Hyponatremia SNOMED Code(s): 06162009 Code(s): E87.1 - HYPO-OSMOLALITY AND HYPONATREMIA Status: Chronic Priority: Medium Current Visit: Yes Annotation/Comment:: History of chronic hyponatremia with current sodium chloride supplementation. Observe closely secondary to his history of CHF as above (7) Mixed anxiety depressive disorder SNOMED Code(s): 169077864 Code(s): F41.8 - OTHER SPECIFIED ANXIETY DISORDERS Status: Chronic Priority: Medium Current Visit: Yes Annotation/Comment:: Somewhat progressive during the last couple of months secondary to his chronic illnesses as above. Continue close followup by his regular provider. His Ativan will be increased secondary to his persistent anxiety and also as a muscle relaxant. Continue additional Flexeril therapy with caution, although this may not be needed later secondary to increased Ativan as above (8) Osteoarthritis SNOMED Code(s): 547101239 Code(s): M19.90 - UNSPECIFIED OSTEOARTHRITIS, UNSPECIFIED SITE Status: Chronic Priority: Medium Current Visit: Yes Annotation/Comment:: Currently under good control other than his back pain-type symptoms. Xrays taken today show degenerative changes, bone loss, at all levels. CT ordered to more carefully evaluate for compression fracture. Tylenol on a regular regimen. No further Toradol for now secondary to his ulcer history and mild progressive anemia. Physical therapy consultation today with the patient already having a lumbar back brace at home. Physical Therapy will further evaluate the patient for possible swing bed care as above (9) Peptic reflux disease SNOMED Code(s): 49524081 Code(s): K21.9 - GASTRO-ESOPHAGEAL REFLUX DISEASE WITHOUT ESOPHAGITIS Status: Chronic Priority: Medium Current Visit: Yes Annotation/Comment:: Note recent history of upper GI bleed on 07/17/16 requiring epinephrine injection of duodenal ulcer and 5 units of blood. No significant abdominal discomfort or evidence of acute GI bleed at this time. High-dose IV Pepcid given on arrival to the emergency room . Continue high-dose IV Pepcid therapy as prophylactic measure as before - Problem List Review Problem List Initiated/Reviewed/Updated: Yes - My Orders Last 24 Hours: My Active Orders 10/03/16 16:37 Lumbar Spine wo Cont [CT] Routine Thoracic Spine wo Cont [CT] Routine - Assessment Assessment:: As above - Plan Plan:: As above. Extensive precautions were given to the patient, who is in agreement with the treatment plan. Probable discharge tomorrow versus transfer to swing bed care with patient previously having home health. CT ordered to further evaluate thoracic and lumbar spine. Continue to monitor BP.
[2016-10-03] MEDS ORDERED: Menthol/Methyl Salicylate 85 GM Tube TOP PRN (17:23)
[2016-10-03] MEDS: Isosorbide Mononitrate 60 MG Tab.ER PO SCH (17:27)
[2016-10-03] MEDS: Loratadine 10 MG Tab PO SCH (20:03)
[2016-10-03] MEDS: atorvaSTATin 40 MG Tab PO SCH (20:04)
[2016-10-03] MEDS: Levofloxacin/Dextrose 5%-Water 500 MG in Premix Bag 1 BAG IV SCH (22:19)
[2016-10-04] MEDS: Albuterol/Ipratropium 3.0-0.5 MG/3 ML Neb Soln NEB SCH ×3 (02:07→15:05)
[2016-10-04] MEDS: Budesonide 0.5 MG/2 ML Neb Susp NEB SCH (07:48)
[2016-10-04] MEDS: Acetaminophen 325 MG Tab PO SCH ×3 (07:48→15:05)
[2016-10-04] MEDS: Doxycycline 100 MG Cap PO SCH (07:48)
[2016-10-04] MEDS: predniSONE 5 MG Tab PO SCH (07:50)
[2016-10-04] MEDS: Carvedilol 3.125 MG Tab PO SCH ×2 (07:51→17:03)
[2016-10-04] MEDS: guaiFENesin 600 MG Tab.ER PO SCH ×2 (07:51→17:03)
[2016-10-04] MEDS: Aspirin 81 MG Tab.EC PO SCH (07:52)
[2016-10-04] MEDS: Lisinopril 10 MG Tab PO SCH (07:52)
[2016-10-04] MEDS: LORazepam 0.5 MG Tab PO SCH ×2 (07:52→17:05)
[2016-10-04] MEDS: Sodium Chloride 1 GM Tab PO SCH ×3 (07:52→17:03)
[2016-10-04] MEDS: Cyclobenzaprine 10 MG Tab PO SCH ×3 (07:53→17:05)
[2016-10-04] MEDS: Famotidine 20 MG/2 ML SDV IVPUSH SCH ×2 (07:53→17:05)
[2016-10-04] MEDS: Sodium Chloride 0.9% 10 ML Syringe FLUSH PRN ×2 (07:55→17:07)
[2016-10-04] MEDS: Psyllium Husk Powder Sugar Free 5.85 GM Packet PO SCH (07:55)
[2016-10-04 16:15] VITALS: BP 122/89
[2016-10-04] MEDS: Isosorbide Mononitrate 60 MG Tab.ER PO SCH (17:05)
--- NOTE | 2016-10-04 17:37 | PCM.DCSUM1 ---
Discharge Summary - Hospital Course Brief History: Admitted for chest pain evaluation and hypertension. Also new onset mid-thoracic pain. - Discharge Data Discharge Date: 10/04/16 Discharge Disposition: DC/Tfer W/I Hosp To Swing Condition: Good - Discharge Diagnosis/Problem(s) (1) Compression fracture SNOMED Code(s): 634852155 ICD Code: [id number] - Status: Acute Priority: High Current Visit: Yes Onset Date: 09/28/16 Problem Details: Suspected new compression fracture T6 noted on CT study. Older T12 compression fracture noted on study, as well as central canal stenosis of lumbar spine (2) Hypertension SNOMED Code(s): 22006989 ICD Code: I10 - ESSENTIAL (PRIMARY) HYPERTENSION Status: Acute Priority: High Current Visit: Yes Onset Date: 09/29/16 Problem Details: Blood pressures are still much improved since admission with multiple medication adjustments, however are somewhat intermittently elevated secondary to his low back pain and also anxiety. Consideration of dobutamine Cardiolite stress test on an outpatient basis secondary to recent probable AZ as per emergency room note. No neurological deficits. Continue medication adjustment during hospitalization as needed. Qualifiers: Hypertension type: essential hypertension Qualified Code(s): I10 - Essential (primary) hypertension (3) COPD, Severe chronic obstructive pulmonary disease SNOMED Code(s): 846147911 ICD Code: J44.9 - CHRONIC OBSTRUCTIVE PULMONARY DISEASE, UNSPECIFIED Status : Acute Priority: Medium Current Visit: Yes Problem Details: Patient is afebrile at this time with no previous clinical evidence of significant pneumonia, including by physical exam and chest x-ray. IV Levaquin initiated on admission. Note history of pulmonary hypertension, etc., however not evident in last echocardiogram. Continue aggressive nebulizer therapy. Pulmonary consultation depending on his clinical course. Probable swing bed care as above (4) CHF (congestive heart failure) SNOMED Code(s): 06782259 ICD Code: I50.9 - HEART FAILURE, UNSPECIFIED Status: Acute Priority: High Current Visit: Yes Onset Date: 09/29/16 Problem Details: Mild BNP elevation with no clinical evidence of significant CHF, including by chest x- ray. Note recent echocardiogram on 07/07/16 with grade 2 diastolic dysfunction. Lisinopril rather than Lotensin initiated on admission. Chest x-ray showed no significant CHF. Qualifiers: Congestive heart failure type: diastolic Congestive heart failure chronicity: acute on chronic Qualified Code(s): I50.33 - Acute on chronic diastolic (congestive) heart failure (5) Coronary artery disease SNOMED Code(s): 10527548 ICD Code: I25.10 - ATHSCL HEART DISEASE OF [place] CORONARY ARTERY W/O ANG PCTRS Status: Acute Priority: High Current Visit: Yes Problem Details: Serial cardiac enzymes negative during this hospitalization. Outpatient cardiac workup as above. Possible unstable angina with atypical chest pain on admission , although pleuritic component as below, which has since resolved.. Chest pain protocol was initiated on patient's arrival to the emergency room. Note artifactually elevated CK index on admission. No significant EKG changes with evidence of previous anterolateral cardiac ischemia and recent AZ in June 2016 with no procedures performed. Further Cardiology consultation depending on his clinical course. Qualifiers: Coronary Disease-Associated Artery/Lesion type: [place] artery [place] vs. transplanted heart: [place] heart Associated angina: with unstable angina Qualified Code(s): I25.110 - Atherosclerotic heart disease of [place] coronary artery with unstable angina pectoris (6) Gilbert syndrome SNOMED Code(s): 93161559 ICD Code: E80.4 - GILBERT SYNDROME Status: Chronic Priority: Medium Current Visit: Yes Problem Details: Mild, nonsymptomatic (7) Hyponatremia SNOMED Code(s): 19902649 ICD Code: E87.1 - HYPO-OSMOLALITY AND HYPONATREMIA Status: Chronic Priority: Medium Current Visit: Yes Problem Details: History of chronic hyponatremia with current sodium chloride supplementation. Observe closely secondary to his history of CHF as above (8) Mixed anxiety depressive disorder SNOMED Code(s): 735720171 ICD Code: F41.8 - OTHER SPECIFIED ANXIETY DISORDERS Status: Chronic Priority: Medium Current Visit: Yes Problem Details: Somewhat progressive during the last couple of months secondary to his chronic illnesses as above. Continue close followup by his regular provider. His Ativan will be increased secondary to his persistent anxiety and also as a muscle relaxant. Continue additional Flexeril therapy with caution, although this may not be needed later secondary to increased Ativan as above (9) Osteoarthritis SNOMED Code(s): 899214531 ICD Code: M19.90 - UNSPECIFIED OSTEOARTHRITIS, UNSPECIFIED SITE Status: Chronic Priority: Medium Current Visit: Yes Problem Details: Currently under good control other than his back pain-type symptoms and newly found compression fracture.. Tylenol on a regular regimen. No further Toradol for now secondary to his ulcer history and mild progressive anemia. Physical therapy consultation with the patient already having a lumbar back brace at home. (10) Peptic reflux disease SNOMED Code(s): 68630694 ICD Code: K21.9 - GASTRO-ESOPHAGEAL REFLUX DISEASE WITHOUT ESOPHAGITIS Status: Chronic Priority: Medium Current Visit: Yes Problem Details: Note recent history of upper GI bleed on 07/17/16 requiring epinephrine injection of duodenal ulcer and 5 units of blood. No significant abdominal discomfort or evidence of acute GI bleed at this time. High-dose IV Pepcid given on arrival to the emergency room . Continue high-dose IV Pepcid therapy as prophylactic measure as before (11) MRSA (methicillin resistant staph aureus) culture positive SNOMED Code(s): 206691860 ICD Code: Z22.322 - CARRIER OR SUSPECTED CARRIER OF METHICILLIN RESIS STAPH Status: Acute Priority: Low Current Visit: Yes Onset Date: ~10/01/16 Problem Details: Patient already on doxycycline. Isolation precautions as per standard protocol (12) Renal insufficiency SNOMED Code(s): 839717036 ICD Code: N28.9 - DISORDER OF KIDNEY AND URETER, UNSPECIFIED Status: Acute Priority: High Current Visit: Yes Onset Date: 10/01/16 Problem Details : Repeat blood work in a.m. Observe closely secondary to recent lisinopril therapy, which was decreased this morning secondary to his low systolic blood pressure yesterday. Note increased Imdur with possible further increase of lisinopril depending on blood pressures (13) Hypoalbuminemia SNOMED Code(s): 686013977 ICD Code: E88.09 - OTH DISORDERS OF PLASMA-PROTEIN METABOLISM, NEC Status: Acute Priority: Medium Current Visit: Yes Onset Date: ~10/01/16 Problem Details: Initiate high-protein Glucerna supplements as snacks (14) Hyperlipidemia SNOMED Code(s): 17704845 ICD Code: E78.5 - HYPERLIPIDEMIA, UNSPECIFIED Status: Chronic Priority: Medium Current Visit: Yes Problem Details: Under therapy. Lipid panel and glycosylated hemoglobin normal during this hospitalization Qualifiers: Hyperlipidemia type: pure hypercholesterolemia Qualified Code(s): E78.00 - Pure hypercholesterolemia, unspecified; E78.0 - Pure hypercholesterolemia - Patient Summary/Data Consults: Consultations 10/02/16 10:02 PT Evaluation and Treatment [CONS] Routine 10/02/16 14:32 Consult to Case Management [CONS] Routine Hospital Course: Patient admitted for chest pain, acute increase in back pain, as well as hypertension. Negative workup for AZ. Persistent problems with hypertensive elevations. This improved with medication adjustments. Patient initiated on antibiotics to cover for potential infection causing pleuritic-like pain as well as noted low grade fever. Eventually found to have new T6 compression fracture on CT. Admitted to swing bed in order to receive assistance with ADLs and ambulation for compression fracture as well as continued monitoring of BP. Patient noted to have significant shortness of breath due to severe COPD during stay. He has associated anxiety due to the worsening COPD which was felt to be contributing to the elevated blood pressure readings. - Discharge Plan Home Medications: Home Meds Albuterol/Ipratropium [DuoNeb 3.0-0.5 MG/3 ML] 1 ampule INH QID 03/20/14 [ History] Multivitamin [Tab A Henry] 1 tab PO DAILY@1200 03/20/14 [History] Albuterol [IJD: Ventolin HFA] 2 puff INH QID PRN 07/02/16 [History] Budesonide [Pulmicort] 0.5 mg NEB BIDRT 07/02/16 [History] Aspirin [Halfprin] 81 mg PO BRK 07/17/16 [History] LORazepam 0.5 mg PO BID 07/17/16 [History] Loratadine 10 mg PO BEDTIME 07/17/16 [History] Pantoprazole Sodium [Protonix] 40 mg PO DAILY 07/17/16 [History] Prednisone [IJD: Prednisone] 10 mg PO DAILY 07/17/16 [History] Psyllium Husk [Metamucil] 2 tsp PO DAILY 07/17/16 [History] Sodium Chloride 1 gm PO TID 07/17/16 [History] atorvaSTATin [Lipitor] 40 mg PO BEDTIME 07/17/16 [History] guaiFENesin [Mucus Relief] 600 mg PO BID 07/17/16 [History] Carvedilol 3.125 mg PO BID 09/29/16 [History] Forms: ED Department Discharge Referrals: Troy Cates PA [Primary Care Provider] - - Discharge Summary/Plan Comment DC Time >30 min.: No Discharge Summary/Plan Comment: Please use for H&P for swing bed admission - General Info Date of Service: 10/04/16 Admission Dx/Problem (Free Text: 1. COPD, end-stage 2. Atypical chest pain 3. Back pain 4. Hypertension Subjective Update: As below Functional Status: Reports: Pain Controlled, Tolerating Diet, Ambulating, Urinating. Denies: New Symptoms - Review of Systems General: Reports: No Symptoms HEENT: Reports: Glasses Pulmonary: Reports: Shortness of Breath (chronic). Denies: Cough, Sputum, Hemoptysis, Wheezing Cardiovascular: Reports: Dyspnea on Exertion (chronic). Denies: Chest Pain, Lightheadedness Gastrointestinal: Reports: No Symptoms Genitourinary: Reports: No Symptoms Musculoskeletal: Reports: Back Pain Skin: Reports: No Symptoms Neurological: Reports: Difficulty Walking (due to back pain). Denies: Confusion , Dizziness, Headache, Numbness, Paresthesia Psychiatric: Reports: No Symptoms - Patient Data Vitals - Most Recent: Last Vital Signs Temp 36.6 C 10/04/16 16:00 Pulse 86 10/04/16 17:03 Resp 16 10/04/16 16:00 BP 122/89 10/04/16 17:03 Pulse Ox 97 10/04/16 16:00 Weight - Most Recent: 72.076 kg I&O - Last 24 hours: Intake & Output 10/04/16 10/04/16 10/04/16 06:59 14:59 22:59 Intake Total 100 1050 Output Total 1000 Balance 100 50 Med Orders - Current: Current Medications Acetaminophen (Tylenol) 650 mg PO Q4H PRN PRN Reason: Pain Last Admin: 09/30/16 22:22 Dose: 650 mg Acetaminophen (Tylenol) 650 mg PO QID YANA Last Admin: 10/04/16 15:05 Dose: 650 mg Albuterol (Proventil Neb Soln) 2.5 mg INH Q2H PRN PRN Reason: SHORTNESS OF BREATH Albuterol/Ipratropium (Duoneb 3.0-0.5 Mg/3 Ml) 3 ml NEB Q4HRRT PRN PRN Reason: Dyspnea Last Admin: 09/29/16 22:46 Dose: 3 ml Albuterol/Ipratropium (Duoneb 3.0-0.5 Mg/3 Ml) 3 ml NEB Q6HRRT [facility] Last Admin: 10/04/16 15:05 Dose: 3 ml Aspirin (Halfprin) 81 mg PO BRK [facility] Last Admin: 10/04/16 07:52 Dose: 81 mg Atorvastatin Calcium (Lipitor) 40 mg PO BEDTIME [facility] Last Admin: 10/03/16 20:04 Dose: 40 mg Budesonide (Pulmicort) 0.5 mg NEB BIDRT [facility] Last Admin: 10/04/16 07:48 Dose: 0.5 mg Carvedilol (Coreg) 3.125 mg PO BID [facility] Last Admin: 10/04/16 17:03 Dose: 3.125 mg Cyclobenzaprine HCl (Flexeril) 10 mg PO TID [facility] Last Admin: 10/04/16 17:05 Dose: 10 mg Doxycycline Hyclate (Vibramycin) 100 mg PO Q12HR [facility] Last Admin: 10/04/16 07:48 Dose: 100 mg Famotidine (Pepcid) 20 mg IVPUSH BID [facility] Last Admin: 10/04/16 17:05 Dose: 20 mg Guaifenesin (Mucinex) 1,200 mg PO BID [facility] Last Admin: 10/04/16 17:03 Dose: 1,200 mg Levofloxacin/Dextrose 500 mg/ (Premix) 100 mls @ 100 mls/hr IV Q24H [facility] Last Admin: 10/03/16 22:19 Dose: 100 mls/hr Isosorbide Mononitrate (Imdur) 60 mg PO QPM [facility] Last Admin: 10/04/16 17:05 Dose: 60 mg Lisinopril (Prinivil) 10 mg PO DAILY [facility] Last Admin: 10/04/16 07:52 Dose: 10 mg Loratadine (Claritin) 10 mg PO BEDTIME [facility] Last Admin: 10/03/16 20:03 Dose: 10 mg Lorazepam (Ativan) 0.5 mg PO BID [facility] Last Admin: 10/04/16 17:05 Dose: 0.5 mg Methyl Salicylate (Icy Hot Cream) 0 gm TOP QID PRN PRN Reason: Pain (mild 1-3) Prednisone (Prednisone) 10 mg PO DAILY [facility] Last Admin: 10/04/16 07:50 Dose: 10 mg Psyllium Husk (Metamucil Sugar Free) 2 pkt PO DAILY [facility] Last Admin: 10/04/16 07:55 Dose: 2 pkt Sodium Chloride (Saline Flush) 10 ml FLUSH ASDIRECTED PRN PRN Reason: Keep Vein Open Last Admin: 10/04/16 17:07 Dose: 10 ml Sodium Chloride (Sodium Chloride) 1 gm PO TID [facility] Last Admin: 10/04/16 17:03 Dose: 1 gm Sodium Chloride (Saline Flush) 10 ml FLUSH Q12HR PRN PRN Reason: Keep Vein Open Last Admin: 10/03/16 17:28 Dose: 10 ml Discontinued Medications Aspirin (Aspirin) 324 mg CHEW ONETIME ONE Stop: 09/29/16 20:25 Last Admin: 09/29/16 20:31 Dose: 324 mg Aspirin (Halfprin) 81 mg PO BRK [facility] Last Admin: 09/29/16 23:35 Dose: Not Given Atorvastatin Calcium (Lipitor) 40 mg PO BEDTIME [facility] Famotidine (Pepcid) 40 mg IVPUSH ONETIME ONE Stop: 09/29/16 20:25 Last Admin: 09/29/16 20:31 Dose: 40 mg Guaifenesin (Mucinex) 600 mg PO BID [facility] Last Admin: 10/01/16 09:19 Dose: Not Given Isosorbide Mononitrate (Imdur) 30 mg PO QPM [facility] Last Admin: 10/01/16 17:53 Dose: 30 mg Isosorbide Mononitrate (Imdur) 30 mg PO ONETIME ONE Stop: 10/02/16 16:13 Last Admin: 10/02/16 16:21 Dose: Not Given Isosorbide Mononitrate (Imdur) 60 mg PO ONETIME ONE Stop: 10/02/16 16:15 Last Admin: 10/02/16 16:30 Dose: 60 mg Ketorolac Tromethamine (Toradol) 30 mg IVPUSH ONETIME ONE Stop: 10/01/16 10:29 Last Admin: 10/01/16 11:08 Dose: 30 mg Lisinopril (Prinivil) 10 mg PO DAILY [facility] Last Admin: 10/01/16 09:20 Dose: Not Given Lisinopril (Prinivil) 5 mg PO DAILY [facility] Last Admin: 10/02/16 08:14 Dose: 5 mg Loratadine (Claritin) 10 mg PO ONETIME ONE Stop: 09/29/16 23:31 Last Admin: 09/29/16 23:22 Dose: 10 mg Lorazepam (Ativan) 0.5 mg PO ONETIME ONE Stop: 09/29/16 23:31 Last Admin: 09/29/16 23:23 Dose: 0.5 mg Methyl Salicylate (Icy Hot Cream) 1 gm TOP QID YANA Last Admin: 10/03/16 17:24 Dose: Not Given Metoprolol Tartrate (Lopressor) 5 mg IVPUSH ONETIME ONE Stop: 09/29/16 20:25 Last Admin: 09/29/16 20:31 Dose: 5 mg Nitroglycerin (Nitrostat) 0.4 mg SL ONETIME STA Stop: 09/30/16 20:56 Last Admin: 09/29/16 20:58 Dose: 0.4 mg Nitroglycerin (Nitrostat) 0.4 mg SL ONETIME STA Stop: 10/03/16 16:13 Last Admin: 10/02/16 16:30 Dose: 0.4 mg Prednisone (Prednisone) 40 mg PO ONETIME ONE Stop: 10/01/16 15:51 Prednisone (Prednisone) 40 mg PO ONETIME ONE Stop: 10/01/16 08:01 Last Admin: 10/01/16 09:20 Dose: Not Given Prednisone (Prednisone) Confirm Administered Dose 20 mg .ROUTE .STK-MED ONE Stop: 10/01/16 08:21 Last Admin: 10/01/16 09:20 Dose: Not Given Ticagrelor (Brilinta) 180 mg PO ONETIME ONE Stop: 09/29/16 20:25 Last Admin: 09/29/16 20:31 Dose: 180 mg Tramadol HCl (Ultram) 50 mg PO Q6H PRN PRN Reason: Pain Last Admin: 09/30/16 19:44 Dose: 50 mg - Exam Quality Assessment: Reports: DVT Prophylaxis General: Reports: Alert, Oriented, Cooperative, No Acute Distress HEENT: Reports: Pupils Equal, Pupils Reactive, EOMI, Mucous Membr. Moist/Mark Neck: Reports: Supple Lungs: Reports: Clear to Auscultation, Normal Respiratory Effort Cardiovascular: Reports: Regular Rate, Regular Rhythm GI/Abdominal Exam: Normal Bowel Sounds, Soft, Non-Tender, No Distention (Male) Exam: Deferred Rectal (Males) Exam: Deferred Back Exam: Reports: Decreased Range of Motion (Due to back pain), Other ( Tenderness around mid and lower thoracic vertebra and adjacent soft tissue bilaterally. ) Extremities: Non-Tender, Normal Capillary Refill Skin: Reports: Warm, Dry Neurological: Reports: No New Focal Deficit Psy/Mental Status: Reports: Alert, Normal Affect, Normal Mood *Q Meaningful Use (DIS) - VTE *Q VTE Criteria *Q: - Stroke *Q Stroke Criteria *Q: - AMI *Q AMI Criteria *Q:
== END 2016-10-04 17:45 | disposition swing bed (61) | DRG 302 ==
LOC: LL.ED 20:12 → EEVIPCON 21:40 → LL.MS 21:40
PROVIDERS: ADMIT Family Medicine; ATTEND Family Medicine
DX: I25.10 Atherosclerotic heart disease of native coronary artery without angina pectoris (principal); I50.33 Acute on chronic diastolic (congestive) heart failure; E87.1 Hypo-osmolality and hyponatremia; M48.54XA Collapsed vertebra, not elsewhere classified, thoracic region, initial encounter for fracture; I11.0 Hypertensive heart disease with heart failure; J44.9 Chronic obstructive pulmonary disease, unspecified; F41.8 Other specified anxiety disorders; M19.90 Unspecified osteoarthritis, unspecified site; K21.9 Gastro-esophageal reflux disease without esophagitis; E80.4 Gilbert syndrome; Z87.891 Personal history of nicotine dependence; H91.90 Unspecified hearing loss, unspecified ear; R30.9 Painful micturition, unspecified; E78.00 Pure hypercholesterolemia, unspecified; I25.2 Old myocardial infarction; Z99.81 Dependence on supplemental oxygen; Z79.52 Long term (current) use of systemic steroids; Z79.899 Other long term (current) drug therapy; Z91.09 Other allergy status, other than to drugs and biological substances; Z22.322 Carrier or suspected carrier of Methicillin resistant Staphylococcus aureus; N28.9 Disorder of kidney and ureter, unspecified; E88.09 Other disorders of plasma-protein metabolism, not elsewhere classified
CPT/HCPCS: 36415; 71010; 80053; 82550; 82553; 83605; 83735; 83880; 84443; 84484; 84550; 85025; 85379; 85610; 85730; 87338; 93005; 96374; 96375; 99285; A9270 ×3; J7050; 71020; 72070; 72110; 72128; 72131; 80048; 80061; 82272; 83036; 87641; 94640; 94664; 97161-GP; J1885; J1956; J3490; S0028

== ENCOUNTER 2016-10-04 07:17 | Inpatient (IN) | payer MEDICARE, BC ==
[2016-10-04] MEDS ORDERED: Acetaminophen 325 MG Tab PO PRN (17:16)
[2016-10-04] MEDS ORDERED: Menthol/Methyl Salicylate 85 GM Tube TOP PRN (17:16)
[2016-10-04] MEDS ORDERED: Albuterol/Ipratropium 3.0-0.5 MG/3 ML Neb Soln NEB PRN (17:16)
[2016-10-04] MEDS ORDERED: Sodium Chloride 0.9% 10 ML Syringe FLUSH PRN ×3 (17:16)
[2016-10-04] MEDS ORDERED: Albuterol 0.083% 2.5 MG/3 ML Neb Soln INH PRN (17:16)
[2016-10-04] MEDS ORDERED: Famotidine 20 MG/2 ML SDV IVPUSH SCH (18:00)
[2016-10-04] MEDS: Levofloxacin 500 MG Tab PO SCH (20:19)
[2016-10-04] MEDS: Budesonide 0.5 MG/2 ML Neb Susp NEB SCH (20:19)
[2016-10-04] MEDS: Doxycycline 100 MG Cap PO SCH (20:19)
[2016-10-04] MEDS: Albuterol/Ipratropium 3.0-0.5 MG/3 ML Neb Soln NEB SCH (20:19)
[2016-10-04] MEDS: Loratadine 10 MG Tab PO SCH (20:19)
[2016-10-04] MEDS: atorvaSTATin 40 MG Tab PO SCH (20:20)
[2016-10-04] MEDS ORDERED: traMADol 50 MG Tab PO PRN (20:20)
[2016-10-04] MEDS: Acetaminophen 325 MG Tab PO SCH (20:20)
[2016-10-04] MEDS ORDERED: Levofloxacin/Dextrose 5%-Water 500 MG in Premix Bag 1 BAG IV SCH (22:30)
[2016-10-05] MEDS: Albuterol/Ipratropium 3.0-0.5 MG/3 ML Neb Soln NEB SCH ×4 (01:59→19:42)
[2016-10-05 08:27] LABS: CHLORIDE,CL 104 mmol/L (98-107); SODIUM,NA 137 mmol/L (136-145)
[2016-10-05] MEDS: Budesonide 0.5 MG/2 ML Neb Susp NEB SCH ×2 (08:29→19:42)
[2016-10-05] MEDS: guaiFENesin 600 MG Tab.ER PO SCH ×2 (08:30→18:24)
[2016-10-05] MEDS: predniSONE 5 MG Tab PO SCH (08:30)
[2016-10-05] MEDS: Doxycycline 100 MG Cap PO SCH ×2 (08:31→19:41)
[2016-10-05] MEDS: Acetaminophen 325 MG Tab PO SCH ×4 (08:32→19:42)
[2016-10-05] MEDS: Sodium Chloride 1 GM Tab PO SCH ×3 (08:32→18:23)
[2016-10-05] MEDS: Famotidine 20 MG Tab PO SCH ×2 (08:33→18:22)
[2016-10-05] MEDS: Cyclobenzaprine 10 MG Tab PO SCH ×3 (08:33→18:31)
[2016-10-05] MEDS: Lisinopril 10 MG Tab PO SCH (08:34)
[2016-10-05] MEDS: Carvedilol 3.125 MG Tab PO SCH ×2 (08:34→18:26)
[2016-10-05] MEDS: Aspirin 81 MG Tab.EC PO SCH (08:35)
[2016-10-05] MEDS: LORazepam 0.5 MG Tab PO SCH ×2 (08:35→18:23)
[2016-10-05] MEDS: Psyllium Husk Powder Sugar Free 5.85 GM Packet PO SCH (08:38)
--- NOTE | 2016-10-05 10:44 | PCM.PN ---
- General Info Date of Service: 10/05/16 Admission Dx/Problem (Free Text): 1. Osteoporosis 2. CHF 3. Hypertension 4. COPD Subjective Update: As below Functional Status: Reports: Pain Controlled, Tolerating Diet, Ambulating, Urinating, Incentive Spirometry. Denies: New Symptoms Pain Score: 2 - Review of Systems General: Reports: Weakness (Stable generalized), Fatigue (Stable generalized). Denies: Fever, Malaise, Chills, Night Sweats, Appetite HEENT: Reports: No Symptoms, Glasses. Denies: Dysphasia, Ear Pain, Eye Pain, Headaches, Sinus Congestion, Sore Throat, Rhinitis, Visual Changes Pulmonary: Reports: Shortness of Breath (Stable chronic), Cough (Stable chronic) . Denies: Pleuritic Chest Pain, Sputum, Hemoptysis, Wheezing Cardiovascular: Reports: Dyspnea on Exertion (Stable chronic secondary to pulmonary disease). Denies: Chest Pain, Palpitations, Orthopnea, PND, Edema, Lightheadedness Gastrointestinal: Reports: No Symptoms. Denies: Abdominal Pain, Constipation, Decreased Appetite, Diarrhea, Difficulty Swallowing, Flatus, Hematochezia, Melena, Nausea, Vomiting Genitourinary: Reports: No Symptoms. Denies: Dysuria, Frequency, Burning, Pain , Urgency, Incontinence, Hematuria, Retention, Flank Pain Musculoskeletal: Reports: Back Pain (Improved). Denies: Neck Pain, Shoulder Pain, Arm Pain, Leg Pain Skin: Reports: No Symptoms. Denies: Diaphoresis, Bruising Neurological: Reports: Difficulty Walking (Secondary to back pain), Weakness ( Nonspecific as above). Denies: Confusion, Dizziness, Headache, Numbness, Paresthesia, Pre-Existing Deficit, Seizure, Syncope, Tingling, Gait Disturbance Psychiatric: Reports: No Symptoms. Denies: Confusion, Depression, Anxiety, Agitation, Cravings, Hallucinations - Patient Data Vitals - Most Recent: Last Vital Signs Temp 36.6 C 10/05/16 08:00 Pulse 79 10/05/16 08:34 Resp 16 10/05/16 08:00 BP 127/75 10/05/16 08:34 Pulse Ox 90 L 10/05/16 08:00 Vital Signs (72 hours) 10/04/16 10/04/16 10/05/16 17:16 20:00 08:00 Temperature [ 36.4 C 36.6 C Temporal] Pulse, Peripheral Pulse, 94 79 Peripheral [ Left Pulse Oximetry] Respiratory 18 16 Rate Blood Pressure Blood Pressure 130/87 127/75 [Right Upper Arm] O2 Sat by Pulse 98 96 90 L Oximetry O2 Sat by Pulse 94 L Oximetry [ Nasal Cannula] 10/05/16 08:34 Temperature [ Temporal] Pulse, 79 Peripheral Pulse, Peripheral [ Left Pulse Oximetry] Respiratory Rate Blood Pressure 127/75 Blood Pressure [Right Upper Arm] O2 Sat by Pulse Oximetry O2 Sat by Pulse Oximetry [ Nasal Cannula] Weight - Most Recent: 72.756 kg I&O - Last 24 Hours: Intake & Output 10/04/16 10/05/16 10/05/16 22:59 06:59 14:59 Intake Total 880 1200 Output Total 1200 900 Balance -320 300 Imaging Impressions - Last 24 Hours: None Lab Results Last 24 Hours: Laboratory Results - last 24 hr 10/05/16 10/05/16 Range/Units 07:20 07:20 WBC 6.2 (4.0-10.2) K/uL RBC 4.54 (4.33-5.41) M/uL Hgb 13.7 (13.1-16.8) g/dL Hct 41.7 (39.0-49.0) % MCV 91.9 (84.0-98.0) fL MCH 30.2 (28.2-33.3) pg MCHC 32.9 (31.7-36.0) g/dL RDW 13.7 (11.2-14.1) % Plt Count 145 L (150-350) K/uL Neut % (Auto) 71.5 (45.0-80.0) % Lymph % (Auto) 15.6 (10.0-50.0) % Hill % (Auto) 10.6 (2.0-14.0) % Eos % (Auto) 1.8 (0.0-5.0) % Baso % (Auto) 0.5 (0.0-2.0) % Neut # (Auto) 4.43 (1.40-7.00) K/uL Lymph # (Auto) 0.97 (0.50-3.50) K/uL Hill # (Auto) 0.66 (0.00-1.00) K/uL Eos # (Auto) 0.11 (0.00-0.50) K/uL Baso # (Auto) 0.03 (0.00-0.20) K/uL Sodium 137 (136-145) mmol/L Potassium 4.0 (3.5-5.1) mmol/L Chloride 104 (98-107) mmol/L Carbon Dioxide 31.4 (21.0-32.0) mmol/L BUN 16 (7-18) mg/dL Creatinine 1.08 (0.51-1.17) mg/dL Est Cr Clr Drug Dosing 59.14 mL/min Estimated GFR (MDRD) > 60 mL/min Glucose 93 (74-106) mg/dL Calcium 8.4 L (8.5-10.1) mg/dL Total Bilirubin 0.7 (0.2-1.0) mg/dL AST 16 (15-37) U/L ALT 21 (12-78) U/L Alkaline Phosphatase 76 (46-116) IU/L Total Protein 6.0 L (6.4-8.2) g/dL Albumin 3.2 L (3.4-5.0) g/dL Dung Results Last 24 Hours: None Med Orders - Current: Current Medications Acetaminophen (Tylenol) 650 mg PO Q4H PRN PRN Reason: Pain Acetaminophen (Tylenol) 650 mg PO QID [facility] Last Admin: 10/05/16 08:32 Dose: 650 mg Albuterol (Proventil Neb Soln) 2.5 mg INH Q2H PRN PRN Reason: SHORTNESS OF BREATH Albuterol/Ipratropium (Duoneb 3.0-0.5 Mg/3 Ml) 3 ml NEB Q4HRRT PRN PRN Reason: Dyspnea Albuterol/Ipratropium (Duoneb 3.0-0.5 Mg/3 Ml) 3 ml NEB Q6HRRT [facility] Last Admin: 10/05/16 08:29 Dose: 3 ml Aspirin (Halfprin) 81 mg PO BRK [facility] Last Admin: 10/05/16 08:35 Dose: 81 mg Atorvastatin Calcium (Lipitor) 40 mg PO BEDTIME [facility] Last Admin: 10/04/16 20:20 Dose: 40 mg Budesonide (Pulmicort) 0.5 mg NEB BIDRT [facility] Last Admin: 10/05/16 08:29 Dose: 0.5 mg Carvedilol (Coreg) 3.125 mg PO BID [facility] Last Admin: 10/05/16 08:34 Dose: 3.125 mg Cyclobenzaprine HCl (Flexeril) 10 mg PO TID [facility] Last Admin: 10/05/16 08:33 Dose: 10 mg Doxycycline Hyclate (Vibramycin) 100 mg PO Q12HR [facility] Stop: 10/07/16 07:00 Last Admin: 10/05/16 08:31 Dose: 100 mg Famotidine (Pepcid) 20 mg PO BID [facility] Last Admin: 10/05/16 08:33 Dose: 20 mg Guaifenesin (Mucinex) 1,200 mg PO BID [facility] Last Admin: 10/05/16 08:30 Dose: 1,200 mg Isosorbide Mononitrate (Imdur) 60 mg PO QPM [facility] Levofloxacin (Levaquin) 500 mg PO Q24H [facility] Stop: 10/07/16 07:00 Last Admin: 10/04/16 20:19 Dose: 500 mg Lisinopril (Prinivil) 10 mg PO DAILY [facility] Last Admin: 10/05/16 08:34 Dose: 10 mg Loratadine (Claritin) 10 mg PO BEDTIME [facility] Last Admin: 10/04/16 20:19 Dose: 10 mg Lorazepam (Ativan) 0.5 mg PO BID [facility] Last Admin: 10/05/16 08:35 Dose: 0.5 mg Methyl Salicylate (Icy Hot Cream) 0 gm TOP QID PRN PRN Reason: Pain (mild 1-3) Prednisone (Prednisone) 10 mg PO DAILY [facility] Last Admin: 10/05/16 08:30 Dose: 10 mg Psyllium Husk (Metamucil Sugar Free) 2 pkt PO DAILY [facility] Last Admin: 10/05/16 08:38 Dose: 2 pkt Sodium Chloride (Sodium Chloride) 1 gm PO TID [facility] Last Admin: 10/05/16 08:32 Dose: 1 gm Tramadol HCl (Ultram) 50 mg PO Q6H PRN PRN Reason: Pain Last Admin: 10/04/16 20:32 Dose: 50 mg Discontinued Medications Famotidine (Pepcid) 20 mg IVPUSH BID [facility] Levofloxacin/Dextrose 500 mg/ (Premix) 100 mls @ 100 mls/hr IV Q24H [facility] Sodium Chloride (Saline Flush) 10 ml FLUSH ASDIRECTED PRN PRN Reason: Keep Vein Open Sodium Chloride (Saline Flush) 10 ml FLUSH Q12HR PRN PRN Reason: Keep Vein Open Sodium Chloride (Saline Flush) 10 ml FLUSH ASDIRECTED PRN PRN Reason: Keep Vein Open - Exam Quality Assessment: Supplemental Oxygen, DVT Prophylaxis. No: Central Line/PICC , Urine Catheter, Skin Breakdown, Restraints General: Alert, Oriented, Cooperative, No Acute Distress HEENT: Pupils Equal, Pupils Reactive, EOMI, Mucous Membr. Moist/[place] Neck: Supple, Trachea Midline, No JVD, No Thyromegaly. No: Lymphadenopathy Lungs: Normal Respiratory Effort, Decreased Breath Sounds (Stable chronic), Rales (Mild bilateral basilar). No: Rhonchi, Rub, Stridor, Wheezing Cardiovascular: Regular Rate, Regular Rhythm, No Murmurs. No: Gallops, Rubs GI/Abdominal Exam: Normal Bowel Sounds, Soft, Non-Tender, No Organomegaly, No Distention, No Abnormal Bruit, No Mass, Pelvis Stable. No: Guarding (Male) Exam: Deferred Back Exam: Decreased Range of Motion (Secondary to chronic back pain with leg braces in lumbar and thoracic region), Paraspinal Tenderness (Mild mid thoracic) . No: CVA Tenderness (L), CVA Tenderness (R), Muscle Spasm, Vertebral Tenderness Extremities: Normal Inspection, Normal Range of Motion, Non-Tender, No Pedal Edema, Normal Capillary Refill. No: Kal's Sign Peripheral Pulses: 2+: Radial (L), Radial (R), Dorsalis Pedis (L), Dorsalis Pedis (R) Skin: Warm, Dry, Intact Neurological: No New Focal Deficit, Other (No clinical orthostasis) Psy/Mental Status: Alert, Normal Affect, Normal Mood. No: Labile Mood, Anxious , Depressed, Agitated, Hallucinations, Withdrawal Symptoms - Problem List & Annotations (1) COPD, Severe chronic obstructive pulmonary disease SNOMED Code(s): 077119055 Code(s): J44.9 - CHRONIC OBSTRUCTIVE PULMONARY DISEASE, UNSPECIFIED Status : Chronic Priority: Medium Current Visit: Yes Annotation/Comment:: Patient is afebrile at this time with no previous clinical evidence of significant pneumonia, including by physical exam and chest x-rays are in previous acute care stay. Note severe end-stage O2 and steroid-dependent COPD with previously recommended long-term care by several previous providers. Patient seems more receptive to this at this time. Note history of pulmonary hypertension, etc., however not evident in last echocardiogram. Continue aggressive nebulizer therapy. Pulmonary consultation depending on his clinical course. (2) Osteoporosis SNOMED Code(s): 18305062 Code(s): M81.0 - AGE-RELATED OSTEOPOROSIS W/O CURRENT PATHOLOGICAL FRACTURE Status: Chronic Priority: High Current Visit: Yes Qualifiers: Osteoporosis type: other Presence of current pathological fracture: unspecified Qualified Code(s): M81.8 - Other osteoporosis without current pathological fracture Annotation/Comment:: Note recent CT scan of the thoracic spine indicating a new T6 compression fracture with previous old T12 compression fracture. Back pain significantly improved with current physical therapy and brace. I did talk with check, physical therapist, this morning, who is ordering a CHANG brace for him at this time. Various therapeutic options were discussed with the patient and his , including possible referral to orthopedic surgery for evaluation for possible vertebroplasty. Secondary to his severe COPD he is a fairly significant operative risk, however. Continue current care per their request for now. Likely long-term nursing care in the future. Note that he is a candidate for recurrent spontaneous vertebral body compression fracture secondary to his required chronic steroid therapy. Calcium and vitamin D therapy with should not a candidate for Fosamax, etc. stress secondary to his ulcer/GI bleed history (3) CHF (congestive heart failure) SNOMED Code(s): 50526719 Code(s): I50.9 - HEART FAILURE, UNSPECIFIED Status: Chronic Priority: High Current Visit: Yes Onset Date: ~07/02/16 Qualifiers: Congestive heart failure type: unspecified congestive heart failure type Congestive heart failure chronicity: chronic Qualified Code(s): I50.9 - Heart failure, unspecified Annotation/Comment:: No chest pain or anginal complaints. Continue current medical therapy (4) Coronary artery disease SNOMED Code(s): 54933763 Code(s): I25.10 - ATHSCL HEART DISEASE OF [place] CORONARY ARTERY W/O ANG PCTRS Status: Chronic Priority: High Current Visit: Yes Qualifiers: Coronary Disease-Associated Artery/Lesion type: [place] artery [place] vs. transplanted heart: [place] heart Associated angina: with unstable angina Qualified Code(s): I25.110 - Atherosclerotic heart disease of [place] coronary artery with unstable angina pectoris Annotation/Comment:: Serial cardiac enzymes negative during recent hospitalization. Continue Imdur as cardiac prophylaxis and as treatment for his hypertension, which is currently under good control with this change in medical therapy. Likely long-term [facility] care in the near future. Consider further outpatient cardiac workup. Evidence of previous anterolateral cardiac ischemia and recent [place] in June 2016 with no procedures performed. Further Cardiology consultation depending on his clinical course. (5) Hypertension SNOMED Code(s): 56588622 Code(s): I10 - ESSENTIAL (PRIMARY) HYPERTENSION Status: Chronic Priority : High Current Visit: Yes Onset Date: 09/29/16 Qualifiers: Hypertension type: essential hypertension Qualified Code(s): I10 - Essential (primary) hypertension Annotation/Comment:: Blood pressures are still much improved since admission with multiple medication adjustments during recent hospitalization in this facility. Consideration of dobutamine Cardiolite stress test on an outpatient basis secondary to recent probable [place]. (6) Hypoalbuminemia SNOMED Code(s): 904377745 Code(s): E88.09 - OTH DISORDERS OF PLASMA-PROTEIN METABOLISM, NEC Status: Chronic Priority: Medium Current Visit: Yes Onset Date: ~10/01/16 Annotation/Comment:: Continue high-protein Glucerna supplements as snacks (7) MRSA (methicillin resistant staph aureus) culture positive SNOMED Code(s): 009207722 Code(s): Z22.322 - CARRIER OR SUSPECTED CARRIER OF METHICILLIN RESIS STAPH Status: Chronic Priority: Medium Current Visit: Yes Onset Date: ~10/01/16 Annotation/Comment:: Continue Isolation precautions as per standard protocol (8) Renal insufficiency SNOMED Code(s): 703511864 Code(s): N28.9 - DISORDER OF KIDNEY AND URETER, UNSPECIFIED Status: Chronic Priority: Medium Current Visit: Yes Onset Date: 10/01/16 Annotation/Comment:: Blood work reviewed today (9) Hyperlipidemia SNOMED Code(s): 47782345 Code(s): E78.5 - HYPERLIPIDEMIA, UNSPECIFIED Status: Chronic Priority: Medium Current Visit: Yes Qualifiers: Hyperlipidemia type: pure hypercholesterolemia Qualified Code(s): E78.00 - Pure hypercholesterolemia, unspecified; E78.0 - Pure hypercholesterolemia Annotation/Comment:: Under therapy. Lipid panel and glycosylated hemoglobin normal during recent hospitalization (10) Mixed anxiety depressive disorder SNOMED Code(s): 996680107 Code(s): F41.8 - OTHER SPECIFIED ANXIETY DISORDERS Status: Chronic Priority: Medium Current Visit: Yes Annotation/Comment:: Somewhat progressive during the last couple of months secondary to his chronic illnesses as above. Continue to observe closely (11) Osteoarthritis SNOMED Code(s): 772126416 Code(s): M19.90 - UNSPECIFIED OSTEOARTHRITIS, UNSPECIFIED SITE Status: Chronic Priority: Medium Current Visit: Yes Annotation/Comment:: Currently under good control other than his back pain-type symptoms and newly found compression fracture.. Tylenol on a regular regimen. No further Toradol for now secondary to his ulcer history and mild progressive anemia. Physical therapy consultation with the patient already having a lumbar back brace at home. (12) Peptic reflux disease SNOMED Code(s): 24008755 Code(s): K21.9 - GASTRO-ESOPHAGEAL REFLUX DISEASE WITHOUT ESOPHAGITIS Status: Chronic Priority: Medium Current Visit: Yes Annotation/Comment:: Note recent history of upper GI bleed on 07/17/16 requiring epinephrine injection of duodenal ulcer and 5 units of blood. No significant abdominal discomfort or evidence of acute GI bleed at this time. Continue GI prophylaxis secondary to high-dose steroid therapy, etc. (13) Osteoarthritis SNOMED Code(s): 324722859 Code(s): M19.90 - UNSPECIFIED OSTEOARTHRITIS, UNSPECIFIED SITE Status: Chronic Priority: Medium Current Visit: Yes Qualifiers: Osteoarthritis location: multiple joints Osteoarthritis type: primary Qualified Code(s): M15.0 - Primary generalized (osteo)arthritis Annotation/Comment:: His osteoarthritis is otherwise stable - Problem List Review Problem List Initiated/Reviewed/Updated: Yes - Assessment Assessment:: As above - Plan Plan:: As above. Extensive precautions were given to the patient and his , who are in agreement with the treatment plan. Continue swing bed care, physical therapy, etc. your patient now considering possible long-term care placement secondary to his end-stage COPD, etc.. Repeat blood work in one week. NOTE: The patient status admission order was corrected by me today secondary to accidental ERROR by [facility] physician in failing to change the admission status from previous inpatient/acute care to actual order of SWING BED CARE.
[2016-10-05] MEDS: Isosorbide Mononitrate 60 MG Tab.ER PO SCH (18:24)
[2016-10-05] MEDS: atorvaSTATin 40 MG Tab PO SCH (19:41)
[2016-10-05] MEDS: Levofloxacin 500 MG Tab PO SCH (19:41)
[2016-10-05] MEDS: Loratadine 10 MG Tab PO SCH (19:41)
[2016-10-06] MEDS: Albuterol/Ipratropium 3.0-0.5 MG/3 ML Neb Soln NEB SCH ×4 (01:56→20:34)
[2016-10-06] MEDS: Psyllium Husk Powder Sugar Free 5.85 GM Packet PO SCH (07:39)
[2016-10-06] MEDS: Budesonide 0.5 MG/2 ML Neb Susp NEB SCH ×2 (07:39→20:34)
[2016-10-06] MEDS: Acetaminophen 325 MG Tab PO SCH ×4 (07:42→20:33)
[2016-10-06] MEDS: guaiFENesin 600 MG Tab.ER PO SCH ×2 (07:42→17:24)
[2016-10-06] MEDS: Lisinopril 10 MG Tab PO SCH (07:43)
[2016-10-06] MEDS: Sodium Chloride 1 GM Tab PO SCH ×3 (07:43→17:24)
[2016-10-06] MEDS: Famotidine 20 MG Tab PO SCH ×2 (07:43→17:24)
[2016-10-06] MEDS: Carvedilol 3.125 MG Tab PO SCH ×2 (07:43→17:23)
[2016-10-06] MEDS: predniSONE 5 MG Tab PO SCH (07:43)
[2016-10-06] MEDS: Aspirin 81 MG Tab.EC PO SCH (07:43)
[2016-10-06] MEDS: Cyclobenzaprine 10 MG Tab PO SCH ×3 (07:43→17:23)
[2016-10-06] MEDS: LORazepam 0.5 MG Tab PO SCH ×2 (07:43→17:23)
[2016-10-06] MEDS: Doxycycline 100 MG Cap PO SCH ×2 (07:43→20:32)
[2016-10-06] MEDS: Isosorbide Mononitrate 60 MG Tab.ER PO SCH (17:23)
[2016-10-06] MEDS: Loratadine 10 MG Tab PO SCH (20:32)
[2016-10-06] MEDS: atorvaSTATin 40 MG Tab PO SCH (20:32)
[2016-10-06] MEDS: Levofloxacin 500 MG Tab PO SCH (20:34)
[2016-10-07] MEDS: Albuterol/Ipratropium 3.0-0.5 MG/3 ML Neb Soln NEB SCH ×4 (03:42→20:19)
[2016-10-07] MEDS: Sodium Chloride 1 GM Tab PO SCH ×3 (07:49→17:34)
[2016-10-07] MEDS: Psyllium Husk Powder Sugar Free 5.85 GM Packet PO SCH (07:49)
[2016-10-07] MEDS: Aspirin 81 MG Tab.EC PO SCH (07:49)
[2016-10-07] MEDS: Famotidine 20 MG Tab PO SCH ×2 (07:50→17:34)
[2016-10-07] MEDS: Carvedilol 3.125 MG Tab PO SCH ×2 (07:50→17:33)
[2016-10-07] MEDS: Acetaminophen 325 MG Tab PO SCH ×4 (07:50→20:19)
[2016-10-07] MEDS: Cyclobenzaprine 10 MG Tab PO SCH ×3 (07:50→17:34)
[2016-10-07] MEDS: predniSONE 5 MG Tab PO SCH (07:50)
[2016-10-07] MEDS: Budesonide 0.5 MG/2 ML Neb Susp NEB SCH ×2 (07:50→20:19)
[2016-10-07] MEDS: guaiFENesin 600 MG Tab.ER PO SCH ×2 (07:50→17:34)
[2016-10-07] MEDS: Lisinopril 10 MG Tab PO SCH (07:51)
[2016-10-07] MEDS: LORazepam 0.5 MG Tab PO SCH ×2 (07:51→17:33)
[2016-10-07] MEDS: Isosorbide Mononitrate 60 MG Tab.ER PO SCH (17:34)
[2016-10-07] MEDS: atorvaSTATin 40 MG Tab PO SCH (20:19)
[2016-10-07] MEDS: Loratadine 10 MG Tab PO SCH (20:19)
[2016-10-08] MEDS: Albuterol/Ipratropium 3.0-0.5 MG/3 ML Neb Soln NEB SCH ×4 (02:17→20:00)
[2016-10-08] MEDS: predniSONE 5 MG Tab PO SCH (07:43)
[2016-10-08] MEDS: Acetaminophen 325 MG Tab PO SCH ×4 (07:43→20:00)
[2016-10-08] MEDS: Budesonide 0.5 MG/2 ML Neb Susp NEB SCH ×2 (07:43→20:00)
[2016-10-08] MEDS: Sodium Chloride 1 GM Tab PO SCH ×3 (07:43→17:17)
[2016-10-08] MEDS: Psyllium Husk Powder Sugar Free 5.85 GM Packet PO SCH (07:43)
[2016-10-08] MEDS: Famotidine 20 MG Tab PO SCH ×2 (07:44→17:19)
[2016-10-08] MEDS: Aspirin 81 MG Tab.EC PO SCH (07:44)
[2016-10-08] MEDS: Cyclobenzaprine 10 MG Tab PO SCH ×3 (07:44→17:20)
[2016-10-08] MEDS: guaiFENesin 600 MG Tab.ER PO SCH ×2 (07:44→17:17)
[2016-10-08] MEDS: LORazepam 0.5 MG Tab PO SCH ×2 (07:44→17:20)
[2016-10-08] MEDS: Lisinopril 10 MG Tab PO SCH (08:43)
[2016-10-08] MEDS: Carvedilol 3.125 MG Tab PO SCH ×2 (08:43→17:19)
[2016-10-08] MEDS: Isosorbide Mononitrate 60 MG Tab.ER PO SCH (17:19)
[2016-10-08] MEDS: atorvaSTATin 40 MG Tab PO SCH (20:00)
[2016-10-08] MEDS: Loratadine 10 MG Tab PO SCH (20:00)
[2016-10-09] MEDS: Albuterol/Ipratropium 3.0-0.5 MG/3 ML Neb Soln NEB SCH ×2 (02:28→08:47)
[2016-10-09 07:30] VITALS: BP 103/70
[2016-10-09 07:58] LABS: CHLORIDE,CL 101 mmol/L (98-107); SODIUM,NA 135 mmol/L (136-145)
[2016-10-09] MEDS: Budesonide 0.5 MG/2 ML Neb Susp NEB SCH (08:47)
[2016-10-09] MEDS: Acetaminophen 325 MG Tab PO SCH ×2 (08:48→13:08)
[2016-10-09] MEDS: guaiFENesin 600 MG Tab.ER PO SCH (08:49)
[2016-10-09] MEDS: Sodium Chloride 1 GM Tab PO SCH ×2 (08:49→13:17)
[2016-10-09] MEDS: Famotidine 20 MG Tab PO SCH (08:49)
[2016-10-09] MEDS: Aspirin 81 MG Tab.EC PO SCH (08:50)
[2016-10-09] MEDS: predniSONE 5 MG Tab PO SCH (08:50)
[2016-10-09] MEDS: Lisinopril 10 MG Tab PO SCH (08:51)
[2016-10-09] MEDS: Carvedilol 3.125 MG Tab PO SCH (08:51)
[2016-10-09] MEDS: LORazepam 0.5 MG Tab PO SCH (08:52)
[2016-10-09] MEDS: Cyclobenzaprine 10 MG Tab PO SCH ×2 (08:52→13:17)
[2016-10-09] MEDS: Psyllium Husk Powder Sugar Free 5.85 GM Packet PO SCH (08:54)
--- NOTE | 2016-10-09 11:51 | PCM.DCSUM1 ---
Discharge Summary - Discharge Data Discharge Date: 10/09/16 Discharge Disposition: Home, Self-Care 01 Condition: Good - Discharge Diagnosis/Problem(s) (1) CHF (congestive heart failure) SNOMED Code(s): 63072142 ICD Code: I50.9 - HEART FAILURE, UNSPECIFIED Status: Chronic Priority: High Current Visit: Yes Onset Date: ~07/02/16 Problem Details: No chest pain or anginal complaints. Continue current medical therapy Qualifiers: Congestive heart failure type: unspecified congestive heart failure type Congestive heart failure chronicity: chronic Qualified Code(s): I50.9 - Heart failure, unspecified (2) COPD, Severe chronic obstructive pulmonary disease SNOMED Code(s): 743799226 ICD Code: J44.9 - CHRONIC OBSTRUCTIVE PULMONARY DISEASE, UNSPECIFIED Status : Chronic Priority: Medium Current Visit: Yes Problem Details: Patient is afebrile at this time with no previous clinical evidence of significant pneumonia, including by physical exam and chest x-rays are in previous acute care stay. Note severe end-stage O2 and steroid-dependent COPD with previously recommended long-term care by several previous providers. Patient seems more receptive to this at this time. Note history of pulmonary hypertension, etc., however not evident in last echocardiogram. Continue aggressive nebulizer therapy. Pulmonary consultation depending on his clinical course. (3) Coronary artery disease SNOMED Code(s): 23068921 ICD Code: I25.10 - ATHSCL HEART DISEASE OF [place] CORONARY ARTERY W/O ANG PCTRS Status: Chronic Priority: High Current Visit: Yes Problem Details : Serial cardiac enzymes negative during recent hospitalization. Continue Imdur as cardiac prophylaxis and as treatment for his hypertension, which is currently under good control with this change in medical therapy. Likely long- term intermediate care in the near future. Consider further outpatient cardiac workup. Evidence of previous anterolateral cardiac ischemia and recent ME in June 2016 with no procedures performed. Further Cardiology consultation depending on his clinical course. Qualifiers: Coronary Disease-Associated Artery/Lesion type: [place] artery [place] vs. transplanted heart: [place] heart Associated angina: with unstable angina Qualified Code(s): I25.110 - Atherosclerotic heart disease of [place] coronary artery with unstable angina pectoris (4) Hyperlipidemia SNOMED Code(s): 47387725 ICD Code: E78.5 - HYPERLIPIDEMIA, UNSPECIFIED Status: Chronic Priority: Medium Current Visit: Yes Problem Details: Under therapy. Lipid panel and glycosylated hemoglobin normal during recent hospitalization Qualifiers: Hyperlipidemia type: pure hypercholesterolemia Qualified Code(s): E78.00 - Pure hypercholesterolemia, unspecified; E78.0 - Pure hypercholesterolemia (5) Hypertension SNOMED Code(s): 55732403 ICD Code: I10 - ESSENTIAL (PRIMARY) HYPERTENSION Status: Chronic Priority : High Current Visit: Yes Onset Date: 09/29/16 Problem Details: Blood pressures are still much improved since admission with multiple medication adjustments during recent hospitalization in this facility. Consideration of dobutamine Cardiolite stress test on an outpatient basis secondary to recent probable ME. Qualifiers: Hypertension type: essential hypertension Qualified Code(s): I10 - Essential (primary) hypertension (6) Hypoalbuminemia SNOMED Code(s): 626222452 ICD Code: E88.09 - OTH DISORDERS OF PLASMA-PROTEIN METABOLISM, NEC Status: Chronic Priority: Medium Current Visit: Yes Onset Date: ~10/01/16 Problem Details: Continue high-protein Glucerna supplements as snacks (7) MRSA (methicillin resistant staph aureus) culture positive SNOMED Code(s): 659487729 ICD Code: Z22.322 - CARRIER OR SUSPECTED CARRIER OF METHICILLIN RESIS STAPH Status: Chronic Priority: Medium Current Visit: Yes Onset Date: ~ Problem Details: Continue Isolation precautions as per standard protocol (8) Mixed anxiety depressive disorder SNOMED Code(s): 340547698 ICD Code: F41.8 - OTHER SPECIFIED ANXIETY DISORDERS Status: Chronic Priority: Medium Current Visit: Yes Problem Details: Somewhat progressive during the last couple of months secondary to his chronic illnesses as above. Continue to observe closely (9) Osteoarthritis SNOMED Code(s): 005665864 ICD Code: M19.90 - UNSPECIFIED OSTEOARTHRITIS, UNSPECIFIED SITE Status: Chronic Priority: Medium Current Visit: Yes Problem Details: His osteoarthritis is otherwise stable Qualifiers: Osteoarthritis location: multiple joints Osteoarthritis type: primary Qualified Code(s): M15.0 - Primary generalized (osteo)arthritis (10) Peptic reflux disease SNOMED Code(s): 31125989 ICD Code: K21.9 - GASTRO-ESOPHAGEAL REFLUX DISEASE WITHOUT ESOPHAGITIS Status: Chronic Priority: Medium Current Visit: Yes Problem Details: Note recent history of upper GI bleed on 07/17/16 requiring epinephrine injection of duodenal ulcer and 5 units of blood. No significant abdominal discomfort or evidence of acute GI bleed at this time. Continue GI prophylaxis secondary to high-dose steroid therapy, etc. (11) Renal insufficiency SNOMED Code(s): 458597031 ICD Code: N28.9 - DISORDER OF KIDNEY AND URETER, UNSPECIFIED Status: Chronic Priority: Medium Current Visit: Yes Onset Date: 10/01/16 Problem Details: Blood work reviewed today (12) Compression fracture SNOMED Code(s): 199721332 ICD Code: [id number] - Status: Acute Priority: High Current Visit: No Onset Date: 09/28/16 Problem Details: Suspected new compression fracture T6 noted on CT study. Older T12 compression fracture noted on study, as well as central canal stenosis of lumbar spine (13) Gilbert syndrome SNOMED Code(s): 56568459 ICD Code: E80.4 - GILBERT SYNDROME Status: Chronic Priority: Medium Current Visit: No Problem Details: Mild, nonsymptomatic (14) Hyponatremia SNOMED Code(s): 51199251 ICD Code: E87.1 - HYPO-OSMOLALITY AND HYPONATREMIA Status: Chronic Priority: Medium Current Visit: No Problem Details: History of chronic hyponatremia with current sodium chloride supplementation. Observe closely secondary to his history of CHF as above - Patient Summary/Data Complications: None Consults: Consultations 10/04/16 17:16 Consult to Case Management [CONS] Routine PT Evaluation and Treatment [CONS] Routine 10/04/16 17:23 OT Evaluation and Treatment [CONS Hospital Course: Patient treated for episodes of hypertension. Several medication adjustments required. Ultimately found to have new compression fracture. Was seen by OT and PT. Improved level of comfort once fitted for back brace. Feels able to go home now since pain is better. Continues to have chronic issues with end-stage COPD. - Patient Instructions Diet: Usual Diet as Tolerated Activity: As Tolerated Driving: May Drive Today Showering/Bathing: May Shower Other/Special Instructions: Please follow up next week with your primary provider for recheck. Keep diary of blood pressures at home as discussed. Discuss with your provider possible cardiac stress test. - Discharge Plan Prescriptions/Med Rec: Isosorbide Mononitrate [Imdur] 60 mg PO QPM #30 tab.er Lisinopril [Prinivil] 10 mg PO DAILY #30 tablet traMADol [Ultram] 50 mg PO Q6H PRN #15 tablet PRN Reason: Pain Home Medications: Home Meds Albuterol/Ipratropium [DuoNeb 3.0-0.5 MG/3 ML] 1 ampule INH QID 03/20/14 [ History] Multivitamin [Tab A Henry] 1 tab PO DAILY@1200 03/20/14 [History] Albuterol [IJD: Ventolin HFA] 2 puff INH QID PRN 07/02/16 [History] Budesonide [Pulmicort] 0.5 mg NEB BIDRT 07/02/16 [History] Aspirin [Halfprin] 81 mg PO BRK 07/17/16 [History] LORazepam 0.5 mg PO BID 07/17/16 [History] Loratadine 10 mg PO BEDTIME 07/17/16 [History] Pantoprazole Sodium [Protonix] 40 mg PO DAILY 07/17/16 [History] Prednisone [IJD: Prednisone] 10 mg PO DAILY 07/17/16 [History] Psyllium Husk [Metamucil] 2 tsp PO DAILY 07/17/16 [History] Sodium Chloride 1 gm PO TID 07/17/16 [History] atorvaSTATin [Lipitor] 40 mg PO BEDTIME 07/17/16 [History] guaiFENesin [Mucus Relief] 600 mg PO BID 07/17/16 [History] Carvedilol 3.125 mg PO BID 09/29/16 [History] Isosorbide Mononitrate [Imdur] 60 mg PO QPM #30 tab.er 10/09/16 [Rx] Lisinopril [Prinivil] 10 mg PO DAILY #30 tablet 10/09/16 [Rx] traMADol [Ultram] 50 mg PO Q6H PRN #15 tablet 10/09/16 [Rx] Patient Handouts: Spinal Compression Fracture, How to Use a Back Brace - Discharge Summary/Plan Comment DC Time >30 min.: No - General Info Admission Dx/Problem (Free Text: 1. Osteoporosis 2. CHF 3. Hypertension 4. COPD Subjective Update: As below Functional Status: Reports: Pain Controlled, Tolerating Diet, Ambulating, Urinating. Denies: New Symptoms - Review of Systems General: Reports: No Symptoms (No acute changes) HEENT: Reports: No Symptoms (No acute changes) Pulmonary: Reports: No Symptoms (No acute changes) Cardiovascular: Reports: No Symptoms (No acute changes) Gastrointestinal: Reports: No Symptoms (No acute changes) Genitourinary: Reports: No Symptoms (No acute changes) Musculoskeletal: Reports: Back Pain (improved) Skin: Reports: No Symptoms Neurological: Reports: No Symptoms Psychiatric: Reports: No Symptoms - Patient Data Vitals - Most Recent: Last Vital Signs Temp 36.3 C 10/09/16 07:28 Pulse 85 10/09/16 08:51 Resp 16 10/09/16 07:28 BP 103/70 10/09/16 08:51 Pulse Ox 92 L 10/09/16 07:28 Weight - Most Recent: 73.255 kg I&O - Last 24 hours: Intake & Output 10/08/16 10/09/16 10/09/16 22:59 06:59 14:59 Intake Total 840 840 Output Total 1200 800 Balance -360 40 Lab Results - Last 24 hrs: Laboratory Results - last 24 hr 10/09/16 10/09/16 Range/Units 07:05 07:05 WBC 6.4 (4.0-10.2) K/uL RBC 4.24 L (4.33-5.41) M/uL Hgb 13.0 L (13.1-16.8) g/dL Hct 38.5 L (39.0-49.0) % MCV 90.8 (84.0-98.0) fL MCH 30.7 (28.2-33.3) pg MCHC 33.8 (31.7-36.0) g/dL RDW 13.6 (11.2-14.1) % Plt Count 146 L (150-350) K/uL Neut % (Auto) 67.5 (45.0-80.0) % Lymph % (Auto) 18.9 (10.0-50.0) % [place] % (Auto) 11.7 (2.0-14.0) % Eos % (Auto) 1.6 (0.0-5.0) % Baso % (Auto) 0.3 (0.0-2.0) % Neut # (Auto) 4.33 (1.40-7.00) K/uL Lymph # (Auto) 1.21 (0.50-3.50) K/uL [place] # (Auto) 0.75 (0.00-1.00) K/uL Eos # (Auto) 0.10 (0.00-0.50) K/uL Baso # (Auto) 0.02 (0.00-0.20) K/uL Sodium 135 L (136-145) mmol/L Potassium 3.5 (3.5-5.1) mmol/L Chloride 101 (98-107) mmol/L Carbon Dioxide 28.4 (21.0-32.0) mmol/L BUN 15 (7-18) mg/dL Creatinine 1.00 (0.51-1.17) mg/dL Est Cr Clr Drug Dosing 63.88 mL/min Estimated GFR (MDRD) > 60 mL/min Glucose 85 (74-106) mg/dL Calcium 8.3 L (8.5-10.1) mg/dL Total Bilirubin 0.8 (0.2-1.0) mg/dL AST 25 (15-37) U/L ALT 36 (12-78) U/L Alkaline Phosphatase 76 (46-116) IU/L Total Protein 5.8 L (6.4-8.2) g/dL Albumin 3.1 L (3.4-5.0) g/dL Med Orders - Current: Current Medications Acetaminophen (Tylenol) 650 mg PO Q4H PRN PRN Reason: Pain Acetaminophen (Tylenol) 650 mg PO QID [facility] Last Admin: 10/09/16 08:48 Dose: 650 mg Albuterol (Proventil Neb Soln) 2.5 mg INH Q2H PRN PRN Reason: SHORTNESS OF BREATH Albuterol/Ipratropium (Duoneb 3.0-0.5 Mg/3 Ml) 3 ml NEB Q4HRRT PRN PRN Reason: Dyspnea Albuterol/Ipratropium (Duoneb 3.0-0.5 Mg/3 Ml) 3 ml NEB Q6HRRT [facility] Last Admin: 10/09/16 08:47 Dose: 3 ml Aspirin (Halfprin) 81 mg PO BRK [facility] Last Admin: 10/09/16 08:50 Dose: 81 mg Atorvastatin Calcium (Lipitor) 40 mg PO BEDTIME [facility] Last Admin: 10/08/16 20:00 Dose: 40 mg Budesonide (Pulmicort) 0.5 mg NEB BIDRT [facility] Last Admin: 10/09/16 08:47 Dose: 0.5 mg Carvedilol (Coreg) 3.125 mg PO BID [facility] Last Admin: 10/09/16 08:51 Dose: 3.125 mg Cyclobenzaprine HCl (Flexeril) 10 mg PO TID [facility] Last Admin: 10/09/16 08:52 Dose: 10 mg Famotidine (Pepcid) 20 mg PO BID [facility] Last Admin: 10/09/16 08:49 Dose: 20 mg Guaifenesin (Mucinex) 1,200 mg PO BID [facility] Last Admin: 10/09/16 08:49 Dose: 1,200 mg Isosorbide Mononitrate (Imdur) 60 mg PO QPM [facility] Last Admin: 10/08/16 17:19 Dose: 60 mg Lisinopril (Prinivil) 10 mg PO DAILY [facility] Last Admin: 10/09/16 08:51 Dose: 10 mg Loratadine (Claritin) 10 mg PO BEDTIME [facility] Last Admin: 10/08/16 20:00 Dose: 10 mg Lorazepam (Ativan) 0.5 mg PO BID [facility] Last Admin: 10/09/16 08:52 Dose: 0.5 mg Methyl Salicylate (Icy Hot Cream) 0 gm TOP QID PRN PRN Reason: Pain (mild 1-3) Prednisone (Prednisone) 10 mg PO DAILY [facility] Last Admin: 10/09/16 08:50 Dose: 10 mg Psyllium Husk (Metamucil Sugar Free) 2 pkt PO DAILY [facility] Last Admin: 10/09/16 08:54 Dose: 2 pkt Sodium Chloride (Sodium Chloride) 1 gm PO TID [facility] Last Admin: 10/09/16 08:49 Dose: 1 gm Tramadol HCl (Ultram) 50 mg PO Q6H PRN PRN Reason: Pain Last Admin: 10/04/16 20:32 Dose: 50 mg Discontinued Medications Doxycycline Hyclate (Vibramycin) 100 mg PO Q12HR [facility] Stop: 10/07/16 07:00 Last Admin: 10/06/16 20:32 Dose: 100 mg Famotidine (Pepcid) 20 mg IVPUSH BID [facility] Levofloxacin/Dextrose 500 mg/ (Premix) 100 mls @ 100 mls/hr IV Q24H [facility] Levofloxacin (Levaquin) 500 mg PO Q24H [facility] Stop: 10/07/16 07:00 Last Admin: 10/06/16 20:34 Dose: 500 mg Sodium Chloride (Saline Flush) 10 ml FLUSH ASDIRECTED PRN PRN Reason: Keep Vein Open Sodium Chloride (Saline Flush) 10 ml FLUSH Q12HR PRN PRN Reason: Keep Vein Open Sodium Chloride (Saline Flush) 10 ml FLUSH ASDIRECTED PRN PRN Reason: Keep Vein Open - Exam Quality Assessment: Reports: Supplemental Oxygen General: Reports: Alert, Oriented HEENT: Reports: Pupils Equal, Pupils Reactive, EOMI, Mucous Membr. Moist/[place] Neck: Reports: Supple Lungs: Reports: Clear to Auscultation, Decreased Breath Sounds (throughout). Denies: Crackles, Rales, Rhonchi Cardiovascular: Reports: Regular Rate, Regular Rhythm GI/Abdominal Exam: Soft, Non-Tender Extremities: Non-Tender Skin: Reports: Warm, Dry Neurological: Reports: No New Focal Deficit Psy/Mental Status: Reports: Alert, Normal Affect, Normal Mood *Q Meaningful Use (DIS) - VTE *Q VTE Criteria *Q: - Stroke *Q Stroke Criteria *Q: - AMI *Q AMI Criteria *Q:
== END 2016-10-09 14:50 | disposition home or self-care (01) | DRG 543 ==
LOC: LL.MS 17:30
PROVIDERS: ADMIT Family Medicine; ATTEND Family Medicine
DX: M48.54XA Collapsed vertebra, not elsewhere classified, thoracic region, initial encounter for fracture (principal); I50.32 Chronic diastolic (congestive) heart failure; J44.9 Chronic obstructive pulmonary disease, unspecified; I25.10 Atherosclerotic heart disease of native coronary artery without angina pectoris; I11.0 Hypertensive heart disease with heart failure; E80.4 Gilbert syndrome; F41.8 Other specified anxiety disorders; M19.90 Unspecified osteoarthritis, unspecified site; K21.9 Gastro-esophageal reflux disease without esophagitis; Z22.322 Carrier or suspected carrier of Methicillin resistant Staphylococcus aureus; E78.5 Hyperlipidemia, unspecified; M81.0 Age-related osteoporosis without current pathological fracture; Z79.82 Long term (current) use of aspirin; Z79.899 Other long term (current) drug therapy
CPT/HCPCS: 36415; 80053; 85025; 94640; 94664; 97110-GO; 97110-GP; 97116-GP; 97161-GP; 97165-GO; 97530-GO; 97530-GP; 97760-GP; A9270-GY

== ENCOUNTER 2016-10-16 21:24 | Emergency (ER) | payer MEDICARE, BC ==
[2016-10-16] MEDS ORDERED: Metoprolol Tartrate 50 MG Tab PO ONE (21:36)
[2016-10-16 22:24] VITALS: BP 144/95
--- NOTE | 2016-10-16 22:29 | EDM.PDOC ---
ED HPI GENERAL MEDICAL PROBLEM - General Chief Complaint: General Stated Complaint: high blood pressure Time Seen by Provider: 10/16/16 21:50 Source of Information: Reports: Patient History Limitations: Reports: No Limitations - History of Present Illness INITIAL COMMENTS - FREE TEXT/NARRATIVE: Patient here for complaint of elevated BP. Was recently admitted for hyponatremia and hypertension. Medications adjusted. Has been doing well but noted this morning that systolic was 160. Tonight noted to be 209. Patient denies any associated problems such as headache, dizziness, neuro changes. He has a complicated past medical history that includes chronic SOB due to COPD. He says that his baseline SOB has not worsened. Patient did call his primary locally, Troy Cates, and was instructed to take extra Lisinopril which he did. This included an additional dose of 10mg this evening when he noted his BP to be still elevated. Patient's labs recently repeated at the local clinic to follow up his hyponatremia. He was told his labs were within good range. No other acute changes or complaints. - Related Data Allergies Allergy/AdvReac Type Severity Reaction Status Date / Time levonorgestrel Allergy Cannot Verified 10/16/16 21:52 Remember mold Allergy Shortness Uncoded 10/16/16 21:52 of Breath pollen Allergy Cannot Uncoded 10/16/16 21:52 Remember Home Meds: Home Meds Albuterol/Ipratropium [DuoNeb 3.0-0.5 MG/3 ML] 1 ampule INH QID 03/20/14 [ History] Multivitamin [Tab A Henry] 1 tab PO DAILY@1200 03/20/14 [History] Albuterol [IJD: Ventolin HFA] 2 puff INH QID PRN 07/02/16 [History] Budesonide [Pulmicort] 0.5 mg NEB BIDRT 07/02/16 [History] Aspirin [Halfprin] 81 mg PO BRK 07/17/16 [History] LORazepam 0.5 mg PO BID 07/17/16 [History] Loratadine 10 mg PO BEDTIME 07/17/16 [History] Pantoprazole Sodium [Protonix] 40 mg PO BID 07/17/16 [History] Prednisone [IJD: Prednisone] 10 mg PO DAILY 07/17/16 [History] Psyllium Husk [Metamucil] 2 tsp PO DAILY 07/17/16 [History] Sodium Chloride 1 gm PO TID 07/17/16 [History] atorvaSTATin [Lipitor] 40 mg PO BEDTIME 07/17/16 [History] guaiFENesin [Mucus Relief] 600 mg PO BID 07/17/16 [History] Carvedilol 3.125 mg PO BID 09/29/16 [History] Isosorbide Mononitrate [Imdur] 60 mg PO QPM #30 tab.er 10/09/16 [Rx] traMADol [Ultram] 50 mg PO Q6H PRN #15 tablet 10/09/16 [Rx] Acetaminophen [Tylenol] 650 mg PO Q4H PRN 10/16/16 [History] Lisinopril [Prinivil] 20 mg PO DAILY 10/16/16 [History] Metoprolol Tartrate 25 mg PO ASDIRECTED PRN #10 tablet 10/16/16 [Rx] Past Medical History HEENT History: Reports: Allergic Rhinitis, Cataract, Hard of Hearing, Impaired Vision, Sinusitis, Other (See Below) Other HEENT History: Patient wears glasses, allergic rhinitis with chronic sinusitis, presbycusis bilaterally with no current hearing aid therapy, nasal septum deviation, intermittent tinnitus Cardiovascular History: Reports: CAD, Cardiomyopathy, High Cholesterol, Hypertension, IA, Pulmonary Hypertension, SOB on Exertion, Other (See Below) Other Cardiovascular History: Possible IA in June 2016 with no procedures performed, grade 2 diastolic dysfunction and left ventricular enlargement by echocardiogram on 07/07/16, borderline first-degree AV block on 07/02/16, Dyspnea secondary to COPD Respiratory History: Reports: Bronchitis, Recurrent, COPD, Intubation, Previous , Pneumonia, Recurrent, Pulmonary Fibrosis, Sleep Apnea, Other (See Below) Other Respiratory History: 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 , history of unknown type of right basilar pulmonary nodule 2.[address] scan of chest on 08/06/15 with additional left lower lung lesion and some right hilar mediastinal adenopathy, patient has been compliant with his CPAP Gastrointestinal History: Reports: Bowel Obstruction, Cholelithiasis, Chronic Constipation, Colon Polyp, Gastritis, GERD, GI Bleed, PUD, Other (See Below) Other Gastrointestinal History: Upper GI bleed secondary to duodenal ulcer on 07/17/16, Small bowel obstruction on 09/16/12 after colonoscopy, small bowel ileus after appendicitis as below, tubular adenoma of the transverse colon on 09/15/12, Gilbert's syndrome, mild dysphagia Genitourinary History: Reports: BPH, Other (See Below) Other Genitourinary History: BPH with history of PSA elevation with subsequent normalization, erectile dysfunction Musculoskeletal History: Reports: Arthritis, Back Pain, Chronic, Fracture, Neck Pain, Chronic, Osteoarthritis, Osteoporosis, Other (See Below) Other Musculoskeletal History: Fracture of the left clavicle in 1997, previous vertebral body compression fractures, right Colles' wrist fracture on 03/20/14, new compression fractures diagnosised from last visit pt unsure of exact position Neurological History: Reports: None Psychiatric History: Reports: Anxiety, Depression Endocrine/Metabolic History: Reports: Osteoporosis, Other (See Below) Other Endocrine/Metabolic History: Hyponatremia, hyperkalemia Hematologic History: Reports: Anemia, Blood Transfusion(s), Other (See Below) Other Hematologic History: 5 units of packed red blood cells given in July 2016 secondary to upper GI bleed as above Immunologic History: Reports: None Oncologic (Cancer) History: Reports: None Dermatologic History: Reports: None - Infectious Disease History Infectious Disease History: Reports: Chicken Pox, Measles, Mumps, Scarlet Fever. Denies: C-Difficile, Meningitis, Mononucleosis, MRSA, Rubella, Shingles , TB, VRE - Past Surgical History Head Surgeries/Procedures: Reports: None HEENT Surgical History: Reports: Adenoidectomy, Cataract Surgery, Oral Surgery, Tonsillectomy, Other (See Below) Other HEENT Surgeries/Procedures: Bilateral cataract surgery initially on the left side in about 1997 and on the right side in 2004, complete upper teeth extraction with multiple lower teeth extractions, tonsillectomy and adenoidectomy at age 3 Cardiovascular Surgical History: Reports: None Respiratory Surgical History: Reports: Lung Biopsies, Other (See Below) Other Respiratory Surgeries/Procedures: Lung biopsy on 08/16/15ide unknown GI Surgical History: Reports: Appendectomy, Cholecystectomy, Colonoscopy, EGD, Hernia, Inguinal, Polypectomy, Other (See Below) Other GI Surgeries/Procedures: EGD on 07/19/16 with epinephrine injection of duodenal ulcer, Laparoscopic cholecystectomy in about 1995, last colonoscopy on 04/16/08 with previous evaluation on 09/15/12, laparoscopic appendectomy on 10/13/14, left inguinal hernia repair with mesh placement on 03/28/15 Male Surgical History: Reports: None Endocrine Surgical History: Reports: None Neurological Surgical History: Reports: C-Spine, Laminectomy, Other (See Below) Other Neurological Surgeries/Procedures: Laminectomy of C6 in about 1994 Musculoskeletal Surgical History: Reports: Arthroscopic Procedure, Shoulder Surgery, Other (See Below) Other Musculoskeletal Surgeries/Procedures:: Bilateral arthroscopic shoulder repair with right-sided surgery in 1996 and left-sided surgery in 1997, left clavicular repair in 1997 Oncologic Surgical History: Reports: None Dermatological Surgical History: Reports: Skin Biopsy, Other (See Below) - Past Imaging History Past Imaging History: Reports: Cardiac Echo (Last echocardiogram on 07/07/16 with ejection fraction of 6065 percent and noted left ventricular enlargement and grade 2 diastolic dysfunction, previous echocardiogram on 07/16/08), Carotid US (Left carotid artery Doppler studies on 04/26/11), CAT Scan (Last CTA of the chest on 07/06/16 with previous evaluations on 07/02/16 and 11/13/15, CT of the chest on 08/06/15, Last CT of the abdomen and pelvis with contrast on 10/26/14 with previous evaluation on 09/16/12, CT of the sinuses on 06/12/08), PFT (Last PFTs including diffusion studies and pulmonary exercise test on 05/18/16), Sleep Study (07/08/08), Stress Testing (Persantine Cardiolite stress test on 07/28/06 with ejection fraction of 60%), Swallow Study (11/21/15). Denies: Angiography Social & Family History - Family History HEENT: Reports: None Cardiac: Reports: Arrhythmia, CAD, Heart Failure, High Cholesterol, Hypertension , IA, Other (See Below) Other Cardiac Family History: Father with history of bradycardia and fatal IA at age 82, maternal uncles x3 with fatal MIs in their 60s, maternal aunt with history of CABG and IA. hypertension and hyperlipidemia in father Respiratory: Reports: None GI: Reports: Cholelithiasis, GI bleed, Other (See Below) Other GI Family History: Mother with cholelithiasis, mother with lower GI bleed at 103 as below : Reports: None OBGYN: Reports: Dysfunctional uterine bleeding, Fibroids, Recurrent Spontaneous Other OBGYN Family History: Mother with recurrent SABs, daughter with history of uterine fibroids with subsequent breast cancer Musculoskeletal: Reports: None Neurological: Reports: Alzheimers Disease, CVA, Dementia, Other (See Below) Other Neurological Family History: Father with CVA at age 59, mother with fatal CVA at age 105 with history of Alzheimer's disease Psychiatric: Reports: None Endocrine/Metabolic: Reports: Hypothyroidism, Other (See Below) Other Endocrine/Metabolic Family History: mother with hypothyroidism Hematologic: Reports: Anemia, Other (See Below) Other Hematologic Family History: Lower GI bleed with anemia and required blood transfusion in mother at 103 with no workup Immunologic: Reports: None Dermatologic: Reports: None Oncologic: Reports: Breast, Other (See Below) Other Oncologic Family History: Daughter with fatal breast cancer at age 37, paternal grandmother with fatal breast cancer at age 67 but she also suffered from cervical cancer, daughter with breast cancer at age 41, brother with fatal unknown type of metastatic cancer at age 57 - Tobacco Use Smoking Status *Q: Former Smoker Years of Tobacco use: 40 Packs/Tins Daily: 2.5 Used Tobacco, but Quit: Yes Month Tobacco Last Used: 10/09/1994 Second Hand Smoke Exposure: No - Caffeine Use Caffeine Use: Reports: Coffee, Tea - Alcohol Use Days Per Week of Alcohol Use: 5 Number of Drinks Per Day: 2 Total Drinks Per Week: 10 - Recreational Drug Use Recreational Drug Use: No Drug Use in Last 12 Months: No - Living Situation & Occupation Living situation: Reports: ([birth year], 3 children), with Family ( and son) 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 Denies: Chest Pain, Lightheadedness, Palpitations GI/Abdominal: Reports: No Symptoms : Reports: No Symptoms Musculoskeletal: Reports: No Symptoms Skin: Reports: No Symptoms Neurological: Reports: No Symptoms. Denies: Confusion, Dizziness, Headache, Numbness, Paresthesia Psychiatric: Reports: Anxiety (chronic, due to COPD) Hematologic/Lymphatic: Reports: No Symptoms ED EXAM, GENERAL - Physical Exam Exam: See Below Exam Limited By: No Limitations General Appearance: Alert, WD/WN, No Apparent Distress Eye Exam: Bilateral Eye: EOMI, PERRL Ears: Normal External Exam Nose: No: Nasal Swelling, Nasal Drainage Throat/Mouth: Normal Inspection, Normal Lips, Normal Voice, No Airway Compromise Head: Atraumatic, Normocephalic Neck: Normal Inspection, Supple, Non-Tender, Full Range of Motion Respiratory/Chest: No Respiratory Distress, Lungs Clear, No Accessory Muscle Use , Decreased Breath Sounds (throughout). No: Crackles, Rales, Rhonchi, Wheezing , Stridor Cardiovascular: Normal Peripheral Pulses, Regular Rate, Rhythm, No Murmur Peripheral Pulses: 2+: Radial (L), Radial (R), Dorsalis Pedis (L), Dorsalis Pedis (R) GI/Abdominal: Normal Bowel Sounds, Soft, Non-Tender, No Distention (Male) Exam: Deferred Rectal (Males) Exam: Deferred Back Exam: Normal Inspection Extremities: Normal Inspection, Normal Range of Motion, Non-Tender, Normal Capillary Refill Neurological: Alert, Oriented, Normal Cognition, Normal Gait, No Motor/Sensory Deficits Psychiatric: Normal Affect, Normal Mood Skin Exam: Warm, Dry, Intact, Normal Color Course - Vital Signs Last Recorded V/S: Last Vital Signs Temp 36.6 C 10/16/16 21:30 Pulse 94 10/16/16 22:05 Resp 14 10/16/16 22:05 BP 144/95 H 10/16/16 22:05 Pulse Ox 98 10/16/16 22:05 - Orders/Labs/Meds Meds: Medications Discontinued Medications Generic Name Dose Route Start Last Admin Trade Name Freq PRN Reason Stop Dose Admin Metoprolol Tartrate 50 mg 10/16/16 21:36 10/16/16 21:42 Lopressor PO 10/16/16 21:37 50 mg ONETIME ONE Administration - Re-Assessments/Exams Free Text/Narrative Re-Assessment/Exam: 10/16/16 22:44 Patient initially given Metoprolol in the ER. Within several minutes his BP was noted to be significantly improved. This was too quick a drop to be due to medication given in ER. Patient admitted that he felt much better once he was in the ER, and said the "air was better". He admitted that he felt more relaxed as soon as he was able to sit on the ER bed and relax. Patient's accompanied him and was anxious, and was at times noted to make demeaning remarks towards patient. She also asked us to keep in as inpatient overnight, saying she was too stressed to take care of him at home. Patient was relaxed and laid-back in appearance, and BP continued to improve, as did pulse rate. No labs were performed tonight as he just had labs drawn this week at [facility] [place]. Suspect that there could be anxiety component to patient's blood pressure elevations. We discussed trying to use his anxiety medication TID instead of BID. He was also given a very small amount of Metoprolol 25mg tabs to use PRN significantly elevated BP to see if that leads to improvement. He is only to take one once a day as needed. Patient has follow up appointment with Troy Cates next week. He is to follow up as directed but should return to the ER if the blood pressure problem worsens. Departure - Departure Time of Disposition: 22:23 Disposition: Home, Self-Care 01 Condition: Good Clinical Impression: HTN, Benign hypertension - Discharge Information Prescriptions: Metoprolol Tartrate 25 mg PO ASDIRECTED PRN #10 tablet PRN Reason: Hypertension Referrals: Troy Cates PA [Primary Care Provider] - Forms: ED Department Discharge Additional Instructions: Continue to observe for blood pressure trends. If you note elevated blood pressure with systolic over 175 or bottom number (diastolic) over 100, take one tablet of Metoprolol and see if this helps. If problems become severe and will not improve with Metoprolol, return to the ER for evaluation. If you have side effects from the elevated pressure, such as headache or vision changes, return to the ER. It is ok to take your anxiety pill every 8 hours instead of every 12. Or you can increase the dose to two pills twice a day and see if that improves your baseline anxiety and that too may improve the blood pressure. Otherwise follow up next week with Troy Cates as scheduled.
== END 2016-10-16 22:45 | disposition home or self-care (01) ==
LOC: LL.ED 21:24
DX: I10 Essential (primary) hypertension (principal); I25.10 Atherosclerotic heart disease of native coronary artery without angina pectoris; E78.00 Pure hypercholesterolemia, unspecified; I25.2 Old myocardial infarction; J44.9 Chronic obstructive pulmonary disease, unspecified; Z87.01 Personal history of pneumonia (recurrent); K21.9 Gastro-esophageal reflux disease without esophagitis; M19.90 Unspecified osteoarthritis, unspecified site; F41.9 Anxiety disorder, unspecified; F32.9 Major depressive disorder, single episode, unspecified; M81.0 Age-related osteoporosis without current pathological fracture; Z98.890 Other specified postprocedural states; Z90.49 Acquired absence of other specified parts of digestive tract; Z88.8 Allergy status to other drugs, medicaments and biological substances; Z79.899 Other long term (current) drug therapy; Z79.82 Long term (current) use of aspirin; Z87.891 Personal history of nicotine dependence
CPT/HCPCS: 99283; A9270

== ENCOUNTER 2017-04-14 09:04 | Emergency (ER) | payer MEDICARE, BC ==
[2017-04-14 09:42] LABS: CHLORIDE,CL 95 mmol/L (98-107); SODIUM,NA 133 mmol/L (136-145)
--- NOTE | 2017-04-14 10:38 | EDM.PDOC ---
ED HPI GENERAL MEDICAL PROBLEM - General Chief Complaint: General Stated Complaint: Malaise, Fatuige Time Seen by Provider: 04/14/17 09:20 Source of Information: Reports: Patient History Limitations: Reports: No Limitations - History of Present Illness INITIAL COMMENTS - FREE TEXT/NARRATIVE: Patient is a 76-year-old who was seen in the emergency room with chief complaint facial swelling gum pain and mandibular pain for about 5 days patient states that on Wednesday he woke up not feeling well with gum discomfort he also states that this progressively got worse and on Wednesday he noted swelling of his face he denies fever or sweats at night patient states that for the past 2 weeks he's had loose stool on and off 3 days ago he took Kaopectate which controlled his diarrhea today he had a suppository had a formed stool but then had diarrhea Onset: Gradual Duration: Day(s):, Getting Worse Location: Reports: Face, Abdomen Quality: Reports: Ache, Pressure Severity: Moderate Improves with: Reports: None Associated Symptoms: Reports: Malaise, Other (Nausea) Treatments SHOW HOST: Reports: Acetaminophen Oral/Mouth Pain Score (Numeric/FACES): 5 - Related Data Allergies Allergy/AdvReac Type Severity Reaction Status Date / Time levonorgestrel Allergy Cannot Verified 04/14/17 09:31 Remember mold Allergy Shortness Uncoded 04/14/17 09:31 of Breath pollen Allergy Cannot Uncoded 04/14/17 09:31 Remember Home Meds: Home Meds Albuterol/Ipratropium [DuoNeb 3.0-0.5 MG/3 ML] 1 ampule INH QID 03/20/14 [ History] Multivitamin [Tab A Henry] 1 tab PO DAILY@1200 03/20/14 [History] Budesonide [Pulmicort] 0.5 mg NEB BIDRT 07/02/16 [History] Aspirin [Halfprin] 81 mg PO BRK 07/17/16 [History] LORazepam 0.5 mg PO TID 07/17/16 [History] Loratadine 10 mg PO BEDTIME 07/17/16 [History] Pantoprazole Sodium [Protonix] 40 mg PO BID 07/17/16 [History] Psyllium Husk [Metamucil] 2 tsp PO DAILY 07/17/16 [History] Sodium Chloride 1 gm PO DAILY@1200 07/17/16 [History] atorvaSTATin [Lipitor] 40 mg PO BEDTIME 07/17/16 [History] guaiFENesin [Mucus Relief] 600 mg PO BID 07/17/16 [History] Carvedilol 3.125 mg PO DAILY 09/29/16 [History] Isosorbide Mononitrate [Imdur] 60 mg PO QPM #30 tab.er 10/09/16 [Rx] traMADol [Ultram] 50 mg PO Q6H PRN #15 tablet 10/09/16 [Rx] Acetaminophen [Tylenol] 650 mg PO Q4H PRN 10/16/16 [History] Lisinopril [Prinivil] 20 mg PO BID 10/16/16 [History] Metoprolol Tartrate 25 mg PO ASDIRECTED PRN #10 tablet 10/16/16 [Rx] Albuterol [Ventolin HFA] 1 puff .XX ASDIRECTED PRN 04/14/17 [History] Arformoterol [Brovana] 15 mcg INH Q12HR 04/14/17 [History] Calc/D3/Mag/Zn/[place] [Calcium 600 MG Plus Vit D] 1 tab PO BID 04/14/17 [History] Carvedilol 6.25 mg PO DAILY@1800 04/14/17 [History] Cefprozil [Cefzil] 500 mg PO BID 10 Days #20 tab 04/14/17 [Rx] Nystatin 1 each PO TID PRN 04/14/17 [History] Ondansetron [Zofran ODT] 4 mg PO Q6H PRN #20 tab.dis 04/14/17 [Rx] Prednisone [IJD: predniSONE] 20 mg PO WITHBREAKFAST #5 tab 04/14/17 [Rx] predniSONE [Prednisone] 20 mg PO DAILY 04/14/17 [History] Past Medical History HEENT History: Reports: Allergic Rhinitis, Cataract, Hard of Hearing, Impaired Vision, Sinusitis, Other (See Below) Other HEENT History: Patient wears glasses, allergic rhinitis with chronic sinusitis, presbycusis bilaterally with no current hearing aid therapy, nasal septum deviation, intermittent tinnitus Cardiovascular History: Reports: CAD, Cardiomyopathy, High Cholesterol, Hypertension, AK, Pulmonary Hypertension, SOB on Exertion, Other (See Below) Other Cardiovascular History: Possible AK in June 2016 with no procedures performed, grade 2 diastolic dysfunction and left ventricular enlargement by echocardiogram on 07/07/16, borderline first-degree AV block on 07/02/16, Dyspnea secondary to COPD Respiratory History: Reports: Bronchitis, Recurrent, COPD, Intubation, Previous , Pneumonia, Recurrent, Pulmonary Fibrosis, Sleep Apnea, Other (See Below) Other Respiratory History: 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 , history of unknown type of right basilar pulmonary nodule 2.[address] scan of chest on 08/06/15 with additional left lower lung lesion and some right hilar mediastinal adenopathy, patient has been compliant with his CPAP Gastrointestinal History: Reports: Bowel Obstruction, Cholelithiasis, Chronic Constipation, Colon Polyp, Gastritis, GERD, GI Bleed, PUD, Other (See Below) Other Gastrointestinal History: Upper GI bleed secondary to duodenal ulcer on 07/17/16, Small bowel obstruction on 09/16/12 after colonoscopy, small bowel ileus after appendicitis as below, tubular adenoma of the transverse colon on 09/15/12, Gilbert's syndrome, mild dysphagia Genitourinary History: Reports: BPH, Other (See Below) Other Genitourinary History: BPH with history of PSA elevation with subsequent normalization, erectile dysfunction Musculoskeletal History: Reports: Arthritis, Back Pain, Chronic, Fracture, Neck Pain, Chronic, Osteoarthritis, Osteoporosis, Other (See Below) Other Musculoskeletal History: Fracture of the left clavicle in 1997, previous vertebral body compression fractures, right Colles' wrist fracture on 03/20/14, new compression fractures diagnosised from last visit pt unsure of exact position Neurological History: Reports: None Psychiatric History: Reports: Anxiety, Depression Endocrine/Metabolic History: Reports: Osteoporosis, Other (See Below) Other Endocrine/Metabolic History: Hyponatremia, hyperkalemia Hematologic History: Reports: Anemia, Blood Transfusion(s), Other (See Below) Other Hematologic History: 5 units of packed red blood cells given in July 2016 secondary to upper GI bleed as above Immunologic History: Reports: None Oncologic (Cancer) History: Reports: None Dermatologic History: Reports: None - Infectious Disease History Infectious Disease History: Reports: Chicken Pox, Measles, Mumps, Scarlet Fever. Denies: C-Difficile, Meningitis, Mononucleosis, MRSA, Rubella, Shingles , TB, VRE - Past Surgical History Head Surgeries/Procedures: Reports: None HEENT Surgical History: Reports: Adenoidectomy, Cataract Surgery, Oral Surgery, Tonsillectomy, Other (See Below) Other HEENT Surgeries/Procedures: Bilateral cataract surgery initially on the left side in about 1997 and on the right side in 2004, complete upper teeth extraction with multiple lower teeth extractions, tonsillectomy and adenoidectomy at age 3 Cardiovascular Surgical History: Reports: None Respiratory Surgical History: Reports: Lung Biopsies, Other (See Below) Other Respiratory Surgeries/Procedures: Lung biopsy on 08/16/15ide unknown GI Surgical History: Reports: Appendectomy, Cholecystectomy, Colonoscopy, EGD, Hernia, Inguinal, Polypectomy, Other (See Below) Other GI Surgeries/Procedures: EGD on 07/19/16 with epinephrine injection of duodenal ulcer, Laparoscopic cholecystectomy in about 1995, last colonoscopy on 04/16/08 with previous evaluation on 09/15/12, laparoscopic appendectomy on 10/13/14, left inguinal hernia repair with mesh placement on 03/28/15 Male Surgical History: Reports: None Endocrine Surgical History: Reports: None Neurological Surgical History: Reports: C-Spine, Laminectomy, Other (See Below) Other Neurological Surgeries/Procedures: Laminectomy of C6 in about 1994 Musculoskeletal Surgical History: Reports: Arthroscopic Procedure, Shoulder Surgery, Other (See Below) Other Musculoskeletal Surgeries/Procedures:: Bilateral arthroscopic shoulder repair with right-sided surgery in 1996 and left-sided surgery in 1997, left clavicular repair in 1997 Oncologic Surgical History: Reports: None Dermatological Surgical History: Reports: Skin Biopsy, Other (See Below) - Past Imaging History Past Imaging History: Reports: Cardiac Echo (Last echocardiogram on 07/07/16 with ejection fraction of 6065 percent and noted left ventricular enlargement and grade 2 diastolic dysfunction, previous echocardiogram on 07/16/08), Carotid US (Left carotid artery Doppler studies on 04/26/11), CAT Scan (Last CTA of the chest on 07/06/16 with previous evaluations on 07/02/16 and 11/13/15, CT of the chest on 08/06/[address], [address] of the abdomen and pelvis with contrast on 10/26/14 with previous evaluation on 09/16/12, CT of the sinuses on 06/12/08), PFT (Last PFTs including diffusion studies and pulmonary exercise test on 05/18/16), Sleep Study (07/08/08), Stress Testing (Persantine Cardiolite stress test on 07/28/06 with ejection fraction of 60%), Swallow Study (11/21/15). Denies: Angiography Social & Family History - Family History HEENT: Reports: None Cardiac: Reports: Arrhythmia, CAD, Heart Failure, High Cholesterol, Hypertension , AK, Other (See Below) Other Cardiac Family History: Father with history of bradycardia and fatal AK at age 82, maternal uncles x3 with fatal MIs in their 60s, maternal aunt with history of CABG and AK. hypertension and hyperlipidemia in father Respiratory: Reports: None GI: Reports: Cholelithiasis, GI bleed, Other (See Below) Other GI Family History: Mother with cholelithiasis, mother with lower GI bleed at 103 as below : Reports: None OBGYN: Reports: Dysfunctional uterine bleeding, Fibroids, Recurrent Spontaneous Other OBGYN Family History: Mother with recurrent SABs, daughter with history of uterine fibroids with subsequent breast cancer Musculoskeletal: Reports: None Neurological: Reports: Alzheimers Disease, CVA, Dementia, Other (See Below) Other Neurological Family History: Father with CVA at age 59, mother with fatal CVA at age 105 with history of Alzheimer's disease Psychiatric: Reports: None Endocrine/Metabolic: Reports: Hypothyroidism, Other (See Below) Other Endocrine/Metabolic Family History: mother with hypothyroidism Hematologic: Reports: Anemia, Other (See Below) Other Hematologic Family History: Lower GI bleed with anemia and required blood transfusion in mother at 103 with no workup Immunologic: Reports: None Dermatologic: Reports: None Oncologic: Reports: Breast, Other (See Below) Other Oncologic Family History: Daughter with fatal breast cancer at age 37, paternal grandmother with fatal breast cancer at age 67 but she also suffered from cervical cancer, daughter with breast cancer at age 41, brother with fatal unknown type of metastatic cancer at age 57 - Tobacco Use Smoking Status *Q: Former Smoker Years of Tobacco use: 40 Packs/Tins Daily: 1 Used Tobacco, but Quit: Yes Month Tobacco Last Used: 01 Second Hand Smoke Exposure: No - Caffeine Use Caffeine Use: Reports: Coffee - Alcohol Use Days Per Week of Alcohol Use: 5 Number of Drinks Per Day: 2 Total Drinks Per Week: 10 - Recreational Drug Use Recreational Drug Use: No Drug Use in Last 12 Months: No - Living Situation & Occupation Living situation: Reports: ([birth year], 3 children), with Family ( and son) 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) ED ROS GENERAL - Review of Systems Review Of Systems: See Below Constitutional: Reports: Malaise HEENT: Reports: Dental Pain, Sinus Problem, Other (Difficulty swallowing, gum and teeth tenderness) Respiratory: Reports: Shortness of Breath Cardiovascular: Reports: No Symptoms, Other (Status post AK) Endocrine: Reports: No Symptoms GI/Abdominal: Reports: Diarrhea, Mucous in Stool, Other (Dark stool) : Reports: No Symptoms Musculoskeletal: Reports: No Symptoms Skin: Reports: No Symptoms Neurological: Reports: No Symptoms Psychiatric: Reports: No Symptoms Hematologic/Lymphatic: Reports: No Symptoms Immunologic: Reports: No Symptoms ED EXAM, GENERAL - Physical Exam Exam: See Below Exam Limited By: No Limitations General Appearance: Mild Distress (Pain and gums and soft tissue mouth) Eye Exam: Bilateral Eye: EOMI, PERRL Ear Exam: Left Ear: TM Bulging, Bilateral Ear: Auricle Normal, Canal Normal, TM Dull Nose: Nasal Swelling, Clear Rhinorrhea (Improving) Throat/Mouth: Normal Inspection, Inflammation Head: Facial Swelling Respiratory/Chest: No Respiratory Distress, Lungs Clear, Normal Breath Sounds, Chest Non-Tender, Decreased Breath Sounds Cardiovascular: Normal Peripheral Pulses, Regular Rate, Rhythm, No Murmur GI/Abdominal: Distended, Abnormal Bowel Sounds (Male) Exam: Deferred Rectal (Males) Exam: Normal Rectal Tone, Other (Prostate enlarged) Back Exam: Normal Inspection, Full Range of Motion, NT Extremities: Normal Inspection, Normal Range of Motion, Non-Tender, Normal Capillary Refill, No Pedal Edema Neurological: Alert Psychiatric: Normal Affect, Normal Mood Skin Exam: Warm, Dry, Intact, Normal Color, No Rash Lymphatic: No Adenopathy Course - Vital Signs Last Recorded V/S: Last Vital Signs Temp 98.2 F 04/14/17 09:18 Pulse 77 04/14/17 10:12 Resp 18 04/14/17 10:12 BP 183/91 H 04/14/17 10:12 Pulse Ox 98 04/14/17 10:12 - Orders/Labs/Meds Orders: Active Orders 24 hr Category Date Time Status Max Facial Sinus wo Cont [CT] Stat Exams 04/14/17 09:29 Ordered Labs: Laboratory Tests 04/14/17 04/14/17 Range/Units 09:25 09:25 WBC 10.0 (4.0-10.2) K/uL RBC 4.13 L (4.33-5.41) M/uL Hgb 13.4 (13.1-16.8) g/dL Hct 38.7 L (39.0-49.0) % MCV 93.7 (84.0-98.0) fL MCH 32.4 (28.2-33.3) pg MCHC 34.6 (31.7-36.0) g/dL RDW 12.6 (11.2-14.1) % Plt Count 159 (150-350) K/uL Neut % (Auto) 78.9 (45.0-80.0) % Lymph % (Auto) 10.0 (10.0-50.0) % [place] % (Auto) 9.8 (2.0-14.0) % Eos % (Auto) 1.2 (0.0-5.0) % Baso % (Auto) 0.1 (0.0-2.0) % Neut # (Auto) 7.89 H (1.40-7.00) K/uL Lymph # (Auto) 1.00 (0.50-3.50) K/uL [place] # (Auto) 0.98 (0.00-1.00) K/uL Eos # (Auto) 0.12 (0.00-0.50) K/uL Baso # (Auto) 0.01 (0.00-0.20) K/uL Sodium 133 L (136-145) mmol/L Potassium 3.1 L (3.5-5.1) mmol/L Chloride 95 L (98-107) mmol/L Carbon Dioxide 28.7 (21.0-32.0) mmol/L BUN 10 (7-18) mg/dL Creatinine 0.83 (0.51-1.17) mg/dL Est Cr Clr Drug Dosing 76.96 mL/min Estimated GFR (MDRD) > 60 mL/min Glucose 114 H (74-106) mg/dL Calcium 9.0 (8.5-10.1) mg/dL Departure - Departure Time of Disposition: 11:55 Disposition: Home, Self-Care 01 Condition: Fair Clinical Impression: TMJ arthralgia, Gastroenteritis, Dental caries - Discharge Information Referrals: Troy Cates PA [Primary Care Provider] - Care Plan Goals: Patient will be sent home he is to take his pain medications at home as ordered I will start him on Cefzil 500 twice a day for 10 days Zofran for nausea will obtain stool for C. difficile and cultures will increase his prednisone to 20 mg a day I will see him in 2 or 3 days. - My Orders Last 24 Hours: My Active Orders 04/14/17 09:29 Max Facial Sinus wo Cont [CT] Stat - Assessment/Plan Last 24 Hours: My Active Orders 04/14/17 09:29 Max Facial Sinus wo Cont [CT] Stat
[2017-04-14] MEDS ORDERED: Ketorolac 30 MG/ML SDV IM ONE (10:52)
[2017-04-14 10:54] VITALS: BP 172/99
[2017-04-14] MEDS ORDERED: Ketorolac 30 MG/ML SDV IVPUSH ONE (10:55)
[2017-04-14] MEDS ORDERED: Sodium Chloride 0.9% 10 ML Syringe FLUSH PRN (10:55)
[2017-04-14] MEDS ORDERED: Meperidine PF 25 MG/ML Syringe IVPUSH ONE (11:06)
[2017-04-14] MEDS ORDERED: Meperidine PF 50 MG/ML Syringe IVPUSH ONE (11:30)
[2017-04-14] MEDS ORDERED: Ondansetron 4 MG/2 ML SDV IVPUSH ONE (11:31)
== END 2017-04-14 12:15 | disposition home or self-care (01) ==
LOC: LL.ED 09:04
DX: M26.622 Arthralgia of left temporomandibular joint (principal); K02.9 Dental caries, unspecified; K52.9 Noninfective gastroenteritis and colitis, unspecified; E78.00 Pure hypercholesterolemia, unspecified; I10 Essential (primary) hypertension; I25.2 Old myocardial infarction; E03.9 Hypothyroidism, unspecified; J44.9 Chronic obstructive pulmonary disease, unspecified; Z87.891 Personal history of nicotine dependence; Z88.8 Allergy status to other drugs, medicaments and biological substances; Z91.048 Other nonmedicinal substance allergy status; Z79.899 Other long term (current) drug therapy
CPT/HCPCS: 36415; 70486; 80048; 82272; 85025; 86140; 96374; 96375; 99284; J2175; J2405; J7050

== ENCOUNTER 2023-11-19 07:22 | Emergency (ER) | payer MEDICARE, BC ==
[2023-11-19] MEDS ORDERED: EPINEPHrine 1:10,000 1 MG/10 ML Syringe IVPUSH ONE ×4 (07:26→07:35)
[2023-11-19 08:59] VITALS: BP 68/12; PULSE 0
== END 2023-11-19 09:10 | disposition expired ==
LOC: LL.ED 07:22
DX: I46.9 Cardiac arrest, cause unspecified (principal); I25.10 Atherosclerotic heart disease of native coronary artery without angina pectoris; E78.00 Pure hypercholesterolemia, unspecified; I10 Essential (primary) hypertension; I25.2 Old myocardial infarction; J44.9 Chronic obstructive pulmonary disease, unspecified; K21.9 Gastro-esophageal reflux disease without esophagitis; Z90.49 Acquired absence of other specified parts of digestive tract; Z79.82 Long term (current) use of aspirin; Z79.899 Other long term (current) drug therapy; Z88.8 Allergy status to other drugs, medicaments and biological substances; Z91.048 Other nonmedicinal substance allergy status
CPT/HCPCS: 36680; 92950; 99285-25; J0171